=== PATIENT | female | born 1975 | race Caucasian/White ===

== ENCOUNTER → 2016-12-09 | Outpatient (CLI) | payer OTHER ==
[~2016-12-09] MED LIST: CALC500C3 PO; CLC100 PO; CLZ750 PO; LORA-741 PO; MISCCAP80 PO; NORT25CA PO; NRN/100 PO; ONDA4TAB10 SL; ONDA8TAB6 PO; OPTIRAY 320 IV PRN; OXYC-57 PO; OXYC7.5T65 PO; PANT40TA PO; PRED20TA PO; [UNRECOGNIZED DRUG - OTHER] PO
--- NOTE | 2016-12-09 13:44 | DIAGNOSTIC IMAGING REPORT ---
CT SCAN OF THE CHEST WITH IV CONTRAST CLINICAL HISTORY: Breast cancer. COMPARISON STUDY: Chest CT dated 08/26/2016. TECHNIQUE: Following the IV administration 93 cc of Optiray 320, CT scan of the chest, abdomen, and pelvis was performed from the thoracic inlet to the proximal femora. Images are reviewed in the axial, sagittal, and coronal planes. IV contrast was administered without complication. Automated dose control exposure was utilized. CT DOSE: 246.91 mGycm FINDINGS: Thyroid: Imaged portions of the thyroid gland are normal in size and attenuation. Thoracic aorta: The thoracic aorta is normal in course and caliber. The aortic arch demonstrates standard 3-vessel anatomy. No dissection is seen. A right internal jugular central venous infusion port is in place. Heart: The heart is normal in size and configuration, and without pericardial effusion. The pulmonary trunk is normal in caliber. Lungs and pleural spaces: No airspace consolidation or pleural effusion is identified. There is minimal dependent atelectasis. Scattered calcified granulomas are identified. A 3 mm left lower lobe pulmonary nodule seen on image #192. A 2 mm left upper lobe nodule seen image #124. Mediastinum: The trachea and central airways are clear. Scattered subcentimeter mediastinal lymph nodes are identified. These are not pathologically enlarged by size criteria. The mildly enlarged left prevascular lymph node seen on 08/26/2016 now measures up to 7 mm short axis. Internal mammary region: There is an enlarging left internal mammary lymph node seen on image #102. This measures 1.2 x 0.9 cm. A left internal mammary lesion on image #121 measures 1.9 x 0.9 cm. Mary Grace: Clear. Axillae: There is no axillary lymphadenopathy. Upper abdomen: Partially visualized upper abdominal viscera is within normal limits. Bony thorax: No lytic or blastic lesions are identified. Soft tissues: The left breast is surgically absent. IMPRESSION: 1. There are enlarging left internal mammary lymph nodes as compared to the 08/26/2016 examination. Based on the location this is concerning for metastatic breast cancer. 2. No airspace consolidation or pleural effusion is identified. 3. At least 2 small pulmonary nodules measuring up to 3 mm are unchanged from 08/26/2016. These are pathologically indeterminant but of low suspicion. No new pulmonary nodules are identified. 4. Status post left mastectomy. 5. Additional changes as above. Electronically signed by: Lamonte Pena M.D. 12/09/2016 1:42 PM Dictated Date/Time: 12/09/2016 1:31 PM
== END | disposition home or self-care (01) ==
LOC: C.CTS 12:44
PROVIDERS: ATTEND Internal Medicine Hematology & Oncology
DX: C50.912 Malignant neoplasm of unspecified site of left female breast (principal)

== ENCOUNTER → 2016-12-23 | Outpatient (CLI) | payer OTHER ==
[~2016-12-23] MED LIST changes: -OPTIRAY 320 IV PRN
--- NOTE | 2016-12-24 10:33 | DIAGNOSTIC IMAGING REPORT ---
PET/CT CLINICAL HISTORY: Breast cancer. TECHNIQUE: A PET/CT was performed from the skull base through the upper thighs following intravenous injection of 11.44 mCi of F 18 FDG IV. The injection was performed at 10:53 AM on December 23, 2016 and imaging began at 11:51 AM on December 23, 2016. Unenhanced CT was performed for attenuation correction purposes and anatomic localization. CT DOSE: 321.18 mGycm COMPARISON STUDY: Chest CT December 09, [address] of the chest, abdomen and pelvis August 26, 2016. FINDINGS: Head and neck: No suspicious FDG uptake is identified within the neck. There is no cervical lymphadenopathy. Chest: There is mild FDG uptake within a minimally enlarged left upper internal mammary chain lymph node shown on image 73. This node measures 1.2 x 1.1 cm and has an SUV max of 1.8. There is also mild FDG uptake within a mildly enlarged left internal mammary lymph node shown on image 79 with an SUV max of 2. These correspond to the 2 lymph nodes shown on prior chest CT. A right internal jugular [id number] is in place. The patient is status post left mastectomy. No additional suspicious areas of FDG uptake are identified within the chest. Abdomen and Pelvis: No suspicious FDG uptake is identified within the abdomen or the pelvis. There is no lymphadenopathy. Bowel wall thickening shown on prior CT of August 26, 2016 has resolved. There are several suspected right ovarian cyst. Musculoskeletal: No suspicious skeletal uptake is identified. IMPRESSION: Mild FDG uptake within two minimally enlarged left internal mammary lymph nodes which were shown on CT of December 09, 2016. These are suggestive of arthur metastases. Electronically signed by: Samy Lowe M.D. 12/24/2016 10:31 AM Dictated Date/Time: 12/23/2016 1:04 PM
== END | disposition home or self-care (01) ==
LOC: C.PET 10:14
PROVIDERS: ATTEND Internal Medicine Hematology & Oncology
DX: C50.912 Malignant neoplasm of unspecified site of left female breast (principal)

== ENCOUNTER → 2017-01-02 | Day surgery (SDC) | payer OTHER ==
[~2017-01-02] VITALS: Ht 172.7 cm; Wt 72.0 kg
[2017-01-02 11:04] VITALS: PULSE 73; TEMP 36.5; Ht 172.7 cm; Wt 72.0 kg
[2017-01-02 12:50] VITALS: BP 121/80; PULSE 75; TEMP 36.6; O2SAT 100
--- NOTE | 2017-01-02 13:04 | Discharge Instructions ---
Discharge Instructions Procedure Procedure Date: Jan 02, 2017. Reason for visit: Left Chest Lymph Node. Discharge Discharge Date: Jan 02, 2017. Discharge Diagnosis: Enlarged internal mammary chain lymph node Instructions Activity Recommendations: 1 Day-May resume regular activity Return to School/Work: no limitations Recommended Home Diet: Resume Previous Diet Allergies Coded Allergies: Latex (Verified Allergy, Intermediate, ERRYTHEMA, 08/26/16) Phenazopyridine (Verified Allergy, Intermediate, vomitting, 01/04/16) Uncoded Allergies: PENICILLIN (Allergy, Intermediate, skin irritation, swelling, vomitting, 01/04/16) SULFA (Allergy, Intermediate, skin irritation, swelling, vomitting, 01/04/16) ADHESIVE (Allergy, Mild, ERRYTHEMA, 08/26/16) Jalyn Spaulding Recommendations: Call your doctor if: * Temperature above 101 degrees * Pain not relieved by pain medicine ordered * There is increased drainage or redness from any incision * You have any unanswered questions or concerns. Your Doctors Instructions noted above were prepared by provider Bassam Montoya. Patient Signature Section: Patient Instructions Signature Page Arely Low Patient (or Guardian) Signature/Date: I have read and understand the instructions given to me by my caregivers. Caregiver/RN/Doctor Signature/Date: The above-named patient and/or guardian has received patient instructions on this date. + Original Patient Signature Page (only) stays with chart. Please make copy for patient.
[2017-01-02 13:05] VITALS: BP 106/81; PULSE 65; O2SAT 100
--- NOTE | 2017-01-02 13:09 | DIAGNOSTIC IMAGING REPORT ---
CT GUIDED FINE-NEEDLE ASPIRATION BIOPSY OF A LEFT INTERNAL MAMMARY CHAIN LYMPH NODE CT DOSE: 637.14 mGycm CLINICAL HISTORY: PET positive left internal mammary artery chain lymph node TECHNIQUE: A timeout was performed. The risks of the procedure were explained the patient informed consent was obtained. The abnormality in question was localized using a grid and CT imaging. The skin was anesthetized with 1% lidocaine. 3 passes into the node in question were performed. The needle was documented to be within the node on 3 passes. Initial pathologic review revealed no lesional tissue. Cell block evaluation is pending at this time. COMPARISON STUDY: PET/CT scan dated 12/23/2016 FINDINGS: Final pathology is pending at this time. There were no immediate complications IMPRESSION: 3 samples of the patient's left internal mammary PET positive lymph node were performed under CT guidance utilizing a 25-gauge needle. Initial pathologic review revealed no lesional tissue. Cell block review is pending at this time. Electronically signed by: Bassam Montoya M.D. 01/02/2017 1:08 PM Dictated Date/Time: 01/02/2017 1:04 PM
[2017-01-02 13:32] VITALS: BP 115/70; PULSE 71; O2SAT 100
== END | disposition home or self-care (01) ==
LOC: C.ACU 10:10
PROVIDERS: ATTEND Internal Medicine Hematology & Oncology
DX: R59.9 Enlarged lymph nodes, unspecified (principal); Z88.0 Allergy status to penicillin; Z88.2 Allergy status to sulfonamides

== ENCOUNTER 2017-02-05 05:52 | Inpatient (IN) | payer OTHER ==
[2017-01-13 15:23] VITALS: BMI 24.0
[2017-02-05] VITALS (11 sets, daily range): BP systolic 113–140; BP diastolic 58–91; PULSE 63–87; TEMP 36.5–37.2; O2SAT 92–100; Ht 172.7 cm; Wt 66.3 kg
[~2017-02-05] VITALS: Ht 172.7 cm; Wt 66.3 kg
[~2017-02-05 05:52] MED LIST changes: -CALC500C3 PO; -CLC100 PO; -LORA-741 PO; -NRN/100 PO; -ONDA4TAB10 SL; -OXYC-57 PO; -OXYC7.5T65 PO
[2017-02-05] MEDS ORDERED: LACTATED RINGER'S 1000ML 1,000 ML IV SCH (06:00)
[2017-02-05] MEDS ORDERED: DEXAMETHASONE SOD INJ 4 MG/ML VIAL ONE (06:25)
[2017-02-05] MEDS ORDERED: LIDOCAINE HCL 2% 2 ML VIAL (20MG/ML) ONE ×2 (06:25→07:35)
[2017-02-05] MEDS ORDERED: MIDAZOLAM HCL 1 MG/ML 2ML VIAL ONE ×2 (06:25→07:09)
[2017-02-05] MEDS ORDERED: NEOSTIGMINE METHYLSULFATE 5 MG/5 ML SYR ONE (06:25)
[2017-02-05] MEDS ORDERED: GLYCOPYRROLATE INJ 0.2 MG/ML VIAL ONE (06:25)
[2017-02-05] MEDS ORDERED: ROCURONIUM BROMIDE 10 MG/ML 5 ML VIAL ONE ×3 (06:25→09:39)
[2017-02-05] MEDS ORDERED: ONDANSETRON INJ 2 MG/ML 2 ML VIAL ONE (06:25)
[2017-02-05] MEDS ORDERED: FENTANYL CITRATE INJ 50 MCG/1 ML 2 ML VIAL ONE ×2 (06:26→09:42)
[2017-02-05] MEDS ORDERED: PROPOFOL IV EMULSION 10 MG/ML 20 ML VIAL IV ONE (06:26)
--- NOTE | 2017-02-05 06:38 | History & Physical Bridge Note ---
H&P Re-Evaluation Bridge Note: I have examined the patient, reviewed the History & Physical and in the interval since the performance of the History & Physical I have noted the following changes of clinical significance: No changes noted
[2017-02-05 06:45] LABS: BUN/CREATININE RATIO 20.4 (10-20); CALCIUM 8.5 mg/dl (8.5-10.1); CREATININE 0.92 mg/dl (0.60-1.20); POTASSIUM 3.9 mmol/L (3.5-5.1)
[2017-02-05] MEDS ORDERED: BUPIVACAINE LIPOSOME 1/3% 266 MG/20 ML VIAL INFIL ONE (07:11)
[2017-02-05] MEDS ORDERED: SODIUM CHLORIDE 0.9% PF 50 ML VIAL ONE (07:12)
[2017-02-05] MEDS ORDERED: ATROPINE SULFATE 0.1 MG/ML 5ML SYR IV PRN (08:15)
[2017-02-05] MEDS ORDERED: EpHEDrine SULFATE INJ 50 MG/ML AMP IV PRN (08:15)
[2017-02-05] MEDS ORDERED: PROMETHAZINE HCL INJ 6.25 MG in SODIUM CHLORIDE 0.9% 50ML 50 ML IV PRN (08:15)
[2017-02-05] MEDS ORDERED: ONDANSETRON INJ 2 MG/ML 2 ML VIAL IV PRN (08:15)
[2017-02-05] MEDS: BUPIVACAINE LIPOSOME 1/3% 266 MG/20 ML VIAL INFIL ONE (09:14)
[2017-02-05] MEDS ORDERED: HYDROCORTISONE SOD SUCCINATE 100 MG/2 ML VIAL ONE (09:24)
[2017-02-05] MEDS ORDERED: ESMOLOL HCL 10 MG/ML 10 ML VIAL ONE (10:06)
[2017-02-05] MEDS: FENTANYL CITRATE INJ 50 MCG/1 ML 2 ML VIAL IV PRN ×4 (10:15→10:40)
[2017-02-05] MEDS: HYDROmorphone INJ 1 MG/ML SYR IV PRN ×4 (10:35→10:50)
--- NOTE | 2017-02-05 10:51 | OPERATIVE REPORT ---
DATE OF OPERATION: 02/05/2017 PREOPERATIVE DIAGNOSIS: 1. Hypermetabolic lymph nodes, left internal mammary artery chain. 2. History of breast cancer. POSTOPERATIVE DIAGNOSIS: Metastatic breast cancer to internal mammary artery chain. PROCEDURE: Lymph node resection, left internal mammary artery chain with the da Humera robot via left thoracoscopy. SURGEON: Dr. Easton. [employer]: Ramsey Vance PA-C. ANESTHESIA: General anesthesia endotracheal intubation with double lumen tube. SPECIFICS OF PROCEDURE: Arely Low is an unfortunate 41-year-old female with a history of breast cancer and actually has 2 young children at home. She underwent a PET scan which showed 2 lymph nodes in her left internal mammary artery chain. I was asked to evaluate her and felt that a robotic resection of this would be fairly simple approach. A percutaneous biopsy was not fruitful. On 02/05/2017 the patient was brought to the operating room and underwent uncomplicated insertion of 3 separate 8.5 robotic ports. We were then able to biopsy this with no blood loss. She tolerated it well. The only problem was that it was difficult to do a full bloc with the Exparel and I only performed a block at about 6 interspaces due to the port placements being posterior. She had no air leak at the conclusion of the case and tolerated it well. PROCEDURE: The patient was brought to the operating room and placed in supine position. General anesthesia induced and endotracheal intubation was performed, a double lumen tube. The patient was turned in a semiupright left chest position with her arm more posterior. We did this carefully to prevent any stress on her shoulder or any unusual pressure. We then placed an 8.5 mm port in about the sixth interspace lateral to the mid axillary line. The da Humera camera was then placed. We were able to then visually inspect and went in about the 3rd interspace laterally and then at about the 6th interspace a bit more medially. With this, we were able to easily see the chain. We started superiorly and I scored the endothoracic fascia and came down upon the artery vein without difficulty. It should be noted that we were a few centimeters before the phrenic nerve crossing the subclavian artery. I came upon a node and removed it in its entirety. This was brought out through the port, so I was not concerned about port site metastases. This was sent to the lab for frozen. While waiting for this I then took down 3 more interspaces and removed a large amount of what appeared to be fatty tissue and some lymph node tissue. This was sent for permanent. We really got into no bleeding. Frozen section came back as the superior node being positive for metastatic carcinoma. We stopped here. I then used 266 mg of Exparel reconstituted in 60 mL of normal saline and then attempted to perform intercostal blocks. Given the position of our ports it was very difficult to do this under direct visualization. I blocked about 4 of the superior interspaces by injecting 5 mL of Exparel solution into each interspace. Then I went and did it lower also. A 24-Faroese chest tube was then directed towards the apex and was sutured in place. A single 0 Vicryl suture was used to close the deeper tissues of each of the ports and then 4-0 Monocryl was used to close these incisions in a running continuous fashion. She tolerated it quite well and was extubated in the room. She did have some pain with this postoperatively upon awakening. I attest to the content of the Intraoperative Record and any orders documented therein. Any exceptio ns are noted below.
[2017-02-05] MEDS ORDERED: NALOXONE HCL 0.4 MG/1 ML VIAL/CARP IV PRN (11:30)
[2017-02-05] MEDS: SODIUM CHLORIDE 0.9% 1000ML 1,000 ML IV SCH (11:30)
--- NOTE | 2017-02-05 11:40 | Anesthesiology Progress Note ---
Anesthesia Post Op Note Date & Time Feb 05, 2017 at 11:39 Vital Signs Pain Intensity: 3 Vital Signs Past 12 Hours Date Time Temp Pulse Resp B/P Pulse Ox O2 Delivery O2 Flow Rate FiO2 02/05/17 11:05 36.2 85 20 133/76 98 Nasal Cannula 4 02/05/17 10:50 88 20 139/80 98 Nasal Cannula 4 02/05/17 10:40 74 18 135/77 98 Nasal Cannula 4 02/05/17 10:30 88 18 139/65 97 Nasal Cannula 4 02/05/17 10:20 99 18 119/88 98 Nasal Cannula 4 02/05/17 10:10 36.5 110 20 144/91 98 Mask 4 02/05/17 06:14 36.9 87 18 126/80 98 Room Air Notes Mental Status: alert / awake / arousable, participated in evaluation Pt Amnestic to Procedure: Yes Nausea / Vomiting: adequately controlled Pain: adequately controlled Airway Patency, RR, SpO2: stable & adequate BP & HR: stable & adequate Hydration State: stable & adequate Anesthetic Complications: no major complications apparent Patient pain challenging to control in pacu, although it is improved with sufficient narcotics. Apparently, intercostal blocks were technically challenging on the surgical field and may be insufficient. I recommended a Dilaudid AIRPORT REPRESENTATIVE on the floor and the surgical team has ordered this.
[2017-02-05] MEDS: MoRPHine SULFATE 2 MG/ML CARP IV PRN ×2 (12:19→16:38)
--- NOTE | 2017-02-05 12:28 | DIAGNOSTIC IMAGING REPORT ---
CHEST ONE VIEW PORTABLE CLINICAL HISTORY: s/p left VATS COMPARISON STUDY: Chest CT dated 12/09/2016 FINDINGS: Postsurgical changes are present on the left. There is a left-sided chest tube. No pneumothorax is visualized. There is a right-sided central venous catheter. There is mild prominence of the central pulmonary vessels raising the possibility of mild fluid overload. There is subcutaneous is emphysema on the left.[ Prominent left basal markings are likely atelectatic. IMPRESSION: Postsurgical change. Mild vascular prominence. No evidence of pneumothorax Electronically signed by: Bassam Montoya M.D. 02/05/2017 12:26 PM Dictated Date/Time: 02/05/2017 12:23 PM
[2017-02-05] MEDS ORDERED: NURSING VERBAL MED ORDER ONE (12:30)
[2017-02-05] MEDS: HYDROmorphone HCL 0.5MG/ML 50 ML CASSETTE IV PRN ×4 (12:40→23:08)
[2017-02-05] MEDS: D5W AND 1/2NSS 1,000 ML IV SCH ×2 (12:40→21:48)
[2017-02-05] MEDS ORDERED: PROMETHAZINE HCL INJ 12.5 MG in SODIUM CHLORIDE 0.9% 50ML 50 ML IV ONE (12:45)
[2017-02-05] MEDS: CLINDAMYCIN IV 900 MG in DEXTROSE 5% ADD-VANTAGE 100ML 100 ML IV SCH ×2 (13:41→19:35)
[2017-02-05] MEDS: ACETAMINOPHEN IV 1,000 MG in EMPTY BAG 0 ML IV SCH ×2 (13:41→21:55)
[2017-02-05] MEDS: METOCLOPRAMIDE HCL INJ 5 MG/ML 2 ML VIAL IV. SCH ×2 (13:42→21:51)
[2017-02-05] MEDS: KETOROLAC TROMETHAMINE 15 MG/ML VIAL IV. SCH ×2 (14:29→21:48)
[2017-02-05] MEDS: OXYCODONE HCL IR 5 MG TAB (IMMEDIATE RELEASE) PO PRN (18:07)
[2017-02-05] MEDS: BALSALAZIDE 750 MG CAP PO SCH (18:08)
[2017-02-05] MEDS: ONDANSETRON INJ 2 MG/ML 2 ML VIAL IV PRN (18:08)
[2017-02-05] MEDS: GLYCOPYRROLATE 1 MG TAB PO SCH (18:09)
[2017-02-05] MEDS ORDERED: NURSING VERBAL MED ORDER PRN (18:45)
[2017-02-05] MEDS ORDERED: NURSING VERBAL MED ORDER STA (18:52)
[2017-02-05] MEDS ORDERED: ONDANSETRON INJ 2 MG/ML 2 ML VIAL IV ONE (19:15)
[2017-02-05] MEDS: LORAZEPAM 0.5 MG TAB PO PRN (19:29)
[2017-02-05] MEDS ORDERED: GLYCOPYRROLATE 1 MG TAB PO SCH (21:00)
[2017-02-05] MEDS: DOCUSATE SODIUM 100 MG CAP PO SCH (21:46)
[2017-02-05] MEDS: NORTRIPTYLINE HCL 25 MG CAP PO SCH (21:47)
[2017-02-06] MEDS: LORAZEPAM 0.5 MG TAB PO PRN ×5 (00:11→21:44)
[2017-02-06 04:15] VITALS: BP 124/83; PULSE 75; TEMP 37; O2SAT 94
[2017-02-06] MEDS: KETOROLAC TROMETHAMINE 15 MG/ML VIAL IV. SCH ×3 (06:05→21:44)
[2017-02-06] MEDS: ACETAMINOPHEN IV 1,000 MG in EMPTY BAG 0 ML IV SCH (06:06)
[2017-02-06] MEDS: METOCLOPRAMIDE HCL INJ 5 MG/ML 2 ML VIAL IV. SCH (06:06)
[2017-02-06] MEDS: HYDROmorphone HCL 0.5MG/ML 50 ML CASSETTE IV PRN (07:14)
[2017-02-06 07:30] VITALS: BP 120/72; PULSE 72; TEMP 36.9; O2SAT 94
[2017-02-06] MEDS: D5W AND 1/2NSS 1,000 ML IV SCH (07:44)
[2017-02-06] MEDS: GLYCOPYRROLATE 1 MG TAB PO SCH ×2 (07:47→18:26)
[2017-02-06] MEDS ORDERED: CLC100 PO (08:45)
[2017-02-06] MEDS ORDERED: NRN/100 PO (08:45)
--- NOTE | 2017-02-06 08:54 | Discharge Instructions ---
Discharge Instructions Date of Service Feb 06, 2017. Admission Reason for Admission: Breast Cancer, Internal Mammary Metastasis Discharge Discharge Diagnosis / Problem: Breast Cancer, Internal Mammary Metastasis Discharge Goals Goal(s): Learn about illness Activity Recommendations Activity Limitations: as noted below Lifting Limitations: none 1. Do not drive if taking percocet. 2. You may remove dressing in 3 days and shower thereafter. No tub baths or swimming pools. Cover incisions with dry gauze if any drainage occurs. 3. Do not fly until cleared to do so by Dr. Easton. . Instructions / Follow-Up Instructions / Follow-Up 1. Appointment with Dr. Easton in 1 week. Office will call you with date and time of appointment. You will need a chest x-ray prior to appointment. Current Hospital Diet Patient's current hospital diet: Regular Diet Discharge Diet Recommended Diet: Regular Diet Procedures Procedures Performed: Robotic Laparoscopic Left Internal Mammary Lymphadenectomy [place] Pending Studies Studies pending at discharge: no Medical Emergencies . Who to Call and When: Medical Emergencies: If at any time you feel your situation is an emergency, please call 911 immediately. . Non-Emergent Contact Non-Emergency issues call your: Surgeon Call Non-Emergent contact if: you have a fever, your pain is not controlled, wound has increased drainage . "Provider Documentation" section prepared by Aldo Vance. VTE Core Measure Inpt VTE Proph given/why not?: Enoxaparin (Lovenox)SQ
[2017-02-06] MEDS ORDERED: OXYC7.5T65 PO (08:55)
--- NOTE | 2017-02-06 08:56 | DIAGNOSTIC IMAGING REPORT ---
CHEST ONE VIEW PORTABLE CLINICAL HISTORY: chest tube removal postoperative evaluation COMPARISON STUDY: 02/05/2017 FINDINGS: Interval removal of the patient's left-sided chest tube mild residual left basilar atelectasis. No evidence pneumothorax. Cutaneous emphysematous change improved. Right lung remains clear. IMPRESSION: No evidence pneumothorax status post left-sided chest tube removal Electronically signed by: Henry Wright M.D. 02/06/2017 8:55 AM Dictated Date/Time: 02/06/2017 8:54 AM
[2017-02-06] MEDS ORDERED: ENOXAPARIN 40 MG/0.4 ML SYR SQ SCH (09:00)
[2017-02-06] MEDS ORDERED: PANTOprazole SOD 40 MG TAB PO SCH (09:00)
[2017-02-06] MEDS ORDERED: LACTOBACILLUS ACIDOPHILUS (FLORANEX) TAB PO SCH (09:00)
[2017-02-06] MEDS: BALSALAZIDE 750 MG CAP PO SCH ×2 (09:12→18:25)
[2017-02-06] MEDS: DOCUSATE SODIUM 100 MG CAP PO SCH ×2 (09:13→20:47)
--- NOTE | 2017-02-06 09:15 | DISCHARGE SUMMARY ---
DATE OF DISCHARGE: 02/06/2017. DISCHARGE DIAGNOSES: 1. Metastatic breast carcinoma to left internal mammary lymph nodes. 2. History of left mastectomy for breast cancer. HOSPITAL COURSE: This is an unfortunate 41-year-old with 2 young children who was found to have hypermetabolic nodes in her left internal mammary chain and I was asked to see her and after needle biopsy failed to diagnose this. Lymph nodes were slightly enlarged but more importantly, they were markedly hypermetabolic which is the only site of hypermetabolic activity on the PET scan. I elected to proceed with a biopsy of these. On 02/05/2017 the patient was brought to the operating room electively and we did a robotic procedure with 3 ports and biopsied these lymph nodes. Unfortunately, frozen section showed her to have metastatic carcinoma consistent with a breast primary. We of course are waiting for permanent results. The patient had essentially no blood loss. She had no air leak. Her chest x-ray looked good. She did have significant pain; however, she was much better this morning. I pulled her chest tube out and that helped her pain also. Her incisions were all clean. She was discharged home on postop day 1. I will see her back in the office next week and we will go over the final pathology results. MARIA ELENA
[2017-02-06] MEDS: ONDANSETRON INJ 2 MG/ML 2 ML VIAL IV PRN (09:54)
--- NOTE | 2017-02-06 10:13 | Anesthesiology Progress Note ---
Anesthesia Post Op Note Date & Time Feb 06, 2017 at 10:13 Vital Signs Pain Intensity: 9.0 Vital Signs Past 12 Hours Date Time Temp Pulse Resp B/P Pulse Ox O2 Delivery O2 Flow Rate FiO2 02/06/17 07:30 36.9 72 16 120/72 94 Room Air 02/06/17 04:15 37.0 75 18 124/83 94 Room Air 02/06/17 00:15 Room Air 02/05/17 23:55 37.2 66 18 126/58 93 Room Air Notes Mental Status: alert / awake / arousable, participated in evaluation Pt Amnestic to Procedure: Yes Nausea / Vomiting: adequately controlled Pain: adequately controlled Airway Patency, RR, SpO2: stable & adequate BP & HR: stable & adequate Hydration State: stable & adequate Anesthetic Complications: no major complications apparent
[2017-02-06 11:00] VITALS: BP 121/76; PULSE 95; TEMP 36.9; O2SAT 98
[2017-02-06] MEDS: SODIUM CHLORIDE 0.9% 1000ML 1,000 ML IV SCH (11:00)
[2017-02-06] MEDS: ACETAMINOPHEN 325 MG TAB PO SCH ×2 (12:35→18:27)
[2017-02-06] MEDS: OXYCODONE HCL IR 5 MG TAB (IMMEDIATE RELEASE) PO PRN ×2 (14:27→21:44)
[2017-02-06 14:33] VITALS: BP 121/76; PULSE 95; TEMP 36.9; O2SAT 98
[2017-02-06 15:12] VITALS: BP 146/91; PULSE 80; TEMP 37.2; O2SAT 97
[2017-02-06] MEDS ORDERED: LORA-741 PO (16:29)
[2017-02-06] MEDS: NORTRIPTYLINE HCL 25 MG CAP PO SCH (20:47)
== END 2017-02-06 22:30 | disposition home or self-care (01) | DRG 824 ==
LOC: ENRESERVDT → ENRESERVTM → C.ACU 05:52 → C.MSN 10:04
PROVIDERS: ADMIT Surgery; ATTEND Surgery
PROC: 8E0W4CZ Robotic Assisted Procedure of Trunk Region, Percutaneous Endoscopic Approach (ICD-10-PCS; principal; 2017-02-05 07:30)
PROC: 07B Lymphatic and Hemic Systems, Excision (ICD-10-PCS; principal; 2017-02-05 07:30)
DX: C77.1 Secondary and unspecified malignant neoplasm of intrathoracic lymph nodes (principal); K50.90 Crohn's disease, unspecified, without complications; G89.18 Other acute postprocedural pain; K25.9 Gastric ulcer, unspecified as acute or chronic, without hemorrhage or perforation; M19.90 Unspecified osteoarthritis, unspecified site; Z85.3 Personal history of malignant neoplasm of breast; Z90.12 Acquired absence of left breast and nipple; Z80.9 Family history of malignant neoplasm, unspecified; Z87.891 Personal history of nicotine dependence; Z79.52 Long term (current) use of systemic steroids; Z79.899 Other long term (current) drug therapy

== ENCOUNTER → 2017-02-13 | Outpatient (CLI) | payer OTHER ==
[~2017-02-13] MED LIST changes: +CLC100 PO; +LORA-741 PO; +NRN/100 PO; +OXYC7.5T65 PO
--- NOTE | 2017-02-13 11:30 | DIAGNOSTIC IMAGING REPORT ---
TWO VIEW CHEST CLINICAL HISTORY: Pulmonary nodule. FINDINGS: PA and lateral chest radiographs are compared to study dated 02/06/2017. Correlation is made with chest CT dated 12/09/2016. A right internal jugular central venous infusion port is unchanged in position. The cardiomediastinal silhouette is unremarkable. The lungs and pleural spaces are clear. There is no pneumothorax. The bony thorax appears intact. There is mild thoracic scoliosis. A tiny metallic foreign body is again noted in the left upper chest wall. IMPRESSION: The lungs are clear. The tiny pulmonary nodules seen by chest CT are not apparent by x-ray. Electronically signed by: Lamonte Pena M.D. 02/13/2017 11:28 AM Dictated Date/Time: 02/13/2017 11:27 AM
== END | disposition home or self-care (01) ==
LOC: C.RAD 10:56
PROVIDERS: ATTEND Surgery
DX: R91.1 Solitary pulmonary nodule (principal)

== ENCOUNTER → 2017-02-28 | Outpatient (CLI) | payer OTHER ==
[~2017-02-28] MED LIST changes: -LORA-741 PO; -OXYC7.5T65 PO
--- NOTE | 2017-02-28 15:31 | ECHOCARDIOGRAM REPORT ---
*NOTICE TO RECEIVING CONSTITUTION PARTY AGENCY This information is strictly Confidential and protected under [place] law. [place] law prohibits you from making any further disclosure of this information unless further disclosure is expressly permitted by the written consent of the person to whom it pertains or is authorized by law. A general authorization for the release of medical or other information is not sufficient for this purpose. Hospital accepts no responsibility if the information is made available to any other person, INCLUDING THE PATIENT. Interpretation Summary * Name: MARY KATE OSHEA Study Date: 02/28/2017 02:08 PM BP: 133/73 mmHg * Patient Location: [facility], [place], [facility] HR: 74 * : 1975 (M/d/yyyy) Gender: Female Height: 68 in * Age: 41 yrs Ethnicity: [place] Weight: 140 lb * Ordering Physician: Chavez Hernandez * Referring Physician: Yessenia Johnson . 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 * Normal diastolic function * Right ventricular systolic pressure is normal. Procedure Details * A complete two-dimensional transthoracic echocardiogram was performed (2D, M-mode, Doppler and color flow Doppler). Left Ventricle * The left ventricle is normal in size. * There is normal left ventricular wall thickness. * Ejection Fraction = 55-60%. * Left ventricular systolic function is normal. * Normal diastolic function Right Ventricle * The right ventricle is normal in size and function. Atria * The left atrial size is normal. * Right atrial size is normal. Mitral Valve * The mitral valve anatomy is normal. * There is trace mitral regurgitation. Tricuspid Valve * The tricuspid valve is not well visualized, but is grossly normal. * There is trace tricuspid regurgitation. * Right ventricular systolic pressure is normal. Aortic Valve * The aortic valve is trileaflet. * The aortic valve is normal in structure and function. * No hemodynamically significant valvular aortic stenosis. * There is no significant aortic regurgitation. Great Vessels * The aortic root and proximal ascending aorta are normal sized. Pericardium/Pleural * There is no pericardial effusion. Great Vessels * Normal inferior vena cava size and collapsability with sniff indicates a normal right atrial pressure of 3 mmHg MMode 2D Measurements and Calculations IVSd 0.78 cm LVIDd 4.3 cm LVIDs 2.9 cm LVPWd 0.74 cm IVS/LVPW 1.1 FS 32.5 % EDV(Teich) 81.8 ml ESV(Teich) 31.8 ml EF(Teich) 61.2 % EDV(cubed) 77.9 ml ESV(cubed) 24.0 ml EF(cubed) 69.2 % LV mass(C)d 96.7 grams LV mass(C)dI 55.1 grams/m\S\2 SV(Teich) 50.0 ml SI(Teich) 28.5 ml/m\S\2 SV(cubed) 54.0 ml SI(cubed) 30.7 ml/m\S\2 Ao root diam 2.9 cm Ao root area 6.6 cm\S\2 ACS 1.9 cm LA dimension 3.0 cm asc Aorta Diam 2.2 cm LA/Ao 1.0 LVOT diam 1.8 cm LVOT area 2.6 cm\S\2 LVAd ap4 23.6 cm\S\2 LVLd ap4 7.3 cm EDV(MOD-sp4) 61.5 ml EDV(sp4-el) 64.6 ml LVAs ap4 13.4 cm\S\2 LVLs ap4 5.9 cm ESV(MOD-sp4) 26.6 ml ESV(sp4-el) 26.0 ml EF(MOD-sp4) 56.7 % EF(sp4-el) 59.8 % LVAd ap2 17.3 cm\S\2 LVLd ap2 6.6 cm EDV(MOD-sp2) 38.2 ml EDV(sp2-el) 38.7 ml LVAs ap2 10.2 cm\S\2 LVLs ap2 5.5 cm ESV(MOD-sp2) 16.1 ml ESV(sp2-el) 16.3 ml EF(MOD-sp2) 57.8 % EF(sp2-el) 58.0 % LVLd %diff -11.11 % EDV(MOD-bp) 50.8 ml LVLs %diff -7.35 % ESV(MOD-bp) 21.4 ml EF(MOD-bp) 57.8 % SV(MOD-sp4) 34.9 ml SI(MOD-sp4) 19.9 ml/m\S\2 SV(MOD-sp2) 22.1 ml SI(MOD-sp2) 12.6 ml/m\S\2 SV(MOD-bp) 29.4 ml SI(MOD-bp) 16.7 ml/m\S\2 SV(sp4-el) 38.6 ml SI(sp4-el) 22.0 ml/m\S\2 SV(sp2-el) 22.5 ml SI(sp2-el) 12.8 ml/m\S\2 Doppler Measurements and Calculations MV E max carey 68.9 cm/sec MV A max carey 65.5 cm/sec MV E/A 1.1 MV dec time 0.46 sec Ao V2 max 141.6 cm/sec Ao max PG 8.0 mmHg Ao max PG (full) 1.1 mmHg STACIE(V,A) 2.4 cm\S\2 STACIE(V,D) 2.4 cm\S\2 LV V1 max PG 6.9 mmHg LV V1 max 131.4 cm/sec PA V2 max 119.4 cm/sec PA max PG 5.7 mmHg PA acc slope 646.7 cm/sec\S\2 PA acc time 0.13 sec TR max carey 205.0 cm/sec PA pr(Accel) 22.0 mmHg
== END | disposition home or self-care (01) ==
LOC: C.CPL 13:27
PROVIDERS: ATTEND Nurse Practitioner Family
DX: C50.912 Malignant neoplasm of unspecified site of left female breast (principal)

== ENCOUNTER → 2017-07-23 | Outpatient (CLI) | payer OTHER ==
--- NOTE | 2017-07-23 14:19 | DIAGNOSTIC IMAGING REPORT ---
PET/CT Clinical history: 42-year-old female with left breast cancer status post left mastectomy, metastatic disease in the left internal mammary lymph nodes, former smoker. TECHNIQUE: PET/CT was performed from the base of the skull through the pelvis following the intravenous administration of 13.15 mCi of F18-FDG. Non-contrast CT imaging was performed over the same range without breath-hold for attenuation correction of PET images and anatomic correlation, but not for primary interpretation as it is not of standard diagnostic quality. CT DOSE: 1156.30mGy.cm. COMPARISON: 12/23/2016. FINDINGS: HEAD AND NECK: Pathologically enlarged, FDG avid lymph nodes in the right supraclavicular fossa (max SUV 8.5 and 9.3) disease. Additional FDG avid left supraclavicular lymph node, which is subcentimeter in the short axis (max SUV 5.2). CHEST: Postsurgical changes of left mastectomy. The right internal jugular Mediport remains in place terminating in the right atrium. Interval increase in size and FDG avidity of the left internal mammary lymph node (max SUV 8.1, previously max SUV 2). Margins of this node are difficult to evaluate in the absence of intravenous contrast and may directly invade the overlying intercostal musculature. Interval development of multifocal FDG avid mediastinal lymphadenopathy in the right paratracheal, prevascular and pretracheal regions (max SUV up to 8.6 in the right paratracheal node). No pericardial or pleural effusion. Dependent groundglass opacities likely atelectasis. No FDG avid pulmonary nodule or infiltrate. Mosaic attenuation suggest small airways disease or may be related to the phase of respiration. ABDOMEN/PELVIS: Persistent significant wall thickening of the FDG avid distal ileum (max SUV 7.0). The lack of significant perienteric inflammatory change associated with the degree of wall thickening could suggest post radiation change. A focal photopenic 1.8 cm cystic-appearing region in the distal ileum immediately proximal to the terminal ileum. This was not present on the prior exam. Prominent ovaries bilaterally, incompletely evaluated without intravenous contrast. Additionally, posterior to the left adnexa there is FDG avid abnormal soft tissue (max SUV 7.2). Small amount of free fluid in the pelvis, which may be loculated. No FDG avid lymphadenopathy or evidence of metastatic disease in the abdomen or pelvis. MUSCULOSKELETAL: There is no FDG-avid or destructive bone lesion. IMPRESSION: 1. Follow-up PET/CT demonstrates interval enlargement of the left internal mammary lymph node with increased FDG avidity. Interval development of FDG avid bilateral supraclavicular lymphadenopathy and mediastinal lymphadenopathy. This is consistent with progression of disease. 2. Indeterminate FDG avid abnormal soft tissue posterior to the left adnexa. This raises concern for an ovarian neoplasm. Further evaluation with pelvic ultrasound versus MR to be considered. 3. FDG avid wall thickening of the distal ileum persists. Given the absence of associated perienteric inflammatory change, this appearance could represent post radiation change. 4. Indeterminate 1.8 cm photopenic cystic lesion, which appears to be intramural within the terminal ileum. This is indeterminate. Electronically signed by: Heber Geiger M.D. 07/23/2017 2:18 PM Dictated Date/Time: 07/23/2017 1:56 PM
== END | disposition home or self-care (01) ==
LOC: C.PET 11:25
PROVIDERS: ATTEND Internal Medicine Hematology & Oncology
DX: C50.912 Malignant neoplasm of unspecified site of left female breast (principal)

== ENCOUNTER → 2017-07-30 | Outpatient (CLI) | payer OTHER ==
[~2017-07-30] MED LIST changes: +OPTIRAY 320 IV PRN
--- NOTE | 2017-07-30 15:00 | DIAGNOSTIC IMAGING REPORT ---
HEAD COMBO HISTORY: 42 years-old Female HX OF BREAST CANCER . Metastatic survey. COMPARISON: PET CT 07/23/2017 TECHNIQUE: Multiple axial CT images of the head were obtained both with and without the use of 94 mL Optiray 320. A dose lowering technique was used consistent with the principals of RUBINA. FINDINGS: There is no acute intracranial hemorrhage, midline shift, abnormal extra-axial collections or hydrocephalus. No focal mass is seen on the noncontrast scan. No territorial ischemia. No abnormal intra-axial or extra-axial enhancement is identified to suggest metastatic disease. There is no calvarial fracture. Mastoid air cells and middle ear cavities as well as the paranasal sinuses are clear. Soft tissues are unremarkable and the orbits are symmetric. IMPRESSION: 1. No acute intracranial abnormality. 2. No abnormal enhancement identified to suggest metastatic disease. The above report was generated using voice recognition software. It may contain grammatical, syntax or spelling errors. Electronically signed by: Willie Paulson M.D. 07/30/2017 2:59 PM Dictated Date/Time: 07/30/2017 2:55 PM
== END | disposition home or self-care (01) ==
LOC: C.CTS 14:26
PROVIDERS: ATTEND Internal Medicine Hematology & Oncology
DX: C50.912 Malignant neoplasm of unspecified site of left female breast (principal)

== ENCOUNTER → 2017-08-11 | Outpatient (CLI) | payer OTHER ==
[~2017-08-11] MED LIST changes: -OPTIRAY 320 IV PRN
--- NOTE | 2017-08-11 11:58 | Discharge Instructions ---
Discharge Instructions Procedure Procedure Date: Aug 11, 2017. Reason for visit: Rt Superclavicular Lymph Node,* To Do. Discharge Discharge Date: Aug 11, 2017. Discharge Diagnosis: s/p right supraclavicular lymph node FNA Instructions Activity Recommendations: No limitations Return to School/Work: no limitations Recommended Home Diet: No Limitations Provider Instructions: ACTIVITY RECOMMENDATIONS: * Rest today. * Resume regular activity in one day. MEDICATIONS: * May take Tylenol or Ibuprofen as needed for pain. DIET: * Resume previous diet. SPECIAL CARE INSTRUCTIONS: Call your doctor if: * Temperature above 101 degrees F. * Pain not relieved by pain medicine ordered. * Increased drainage or redness from incision. * Notify your doctor with any questions or concerns. Call your doctor or go to the nearest Emergency Department if you experience: * Increased chest pain or shortness of breath. FOLLOW UP VISIT: Follow-up with Referring Physician as scheduled. Allergies Coded Allergies: Latex (Verified Allergy, Intermediate, ERRYTHEMA, 02/05/17) Phenazopyridine (Verified Allergy, Intermediate, vomitting, 02/05/17) Adhesives (Unverified Allergy, Unknown, SKIN IRRITATION RASH, 02/05/17) Penicillins (Unverified Allergy, Unknown, SKIN IRRITATION SWELLING VOMITING, 02/05/17) Sulfa Antibiotics (Unverified Allergy, Unknown, SKIN IRRITATION SWELLING VOMITING, 02/05/17) [place] Recommendations: Call your doctor if: * Temperature above 101 degrees * Pain not relieved by pain medicine ordered * There is increased drainage or redness from any incision * You have any unanswered questions or concerns. Your Doctors Instructions noted above were prepared by provider Samy Lowe. Patient Signature Section: Patient Instructions Signature Page Arely Low Patient (or Guardian) Signature/Date: I have read and understand the instructions given to me by my caregivers. Caregiver/RN/Doctor Signature/Date: The above-named patient and/or guardian has received patient instructions on this date. + Original Patient Signature Page (only) stays with chart. Please make copy for patient.
--- NOTE | 2017-08-11 14:58 | DIAGNOSTIC IMAGING REPORT ---
ULTRASOUND GUIDED FINE NEEDLE ASPIRATION OF RIGHT SUPRACLAVICULAR LYMPH NODE CLINICAL HISTORY: Right supraclavicular lymph node. Breast cancer. COMPARISON STUDY: PET/CT July 23, 2017. PROCEDURE: Sonography of the right supraclavicular region demonstrated multiple enlarged lymph nodes which correspond to the FDG avid nodes shown on PET/CT of July 23, 2017. A cash applications representative 2 cm node was targeted for fine needle aspiration. This node was chosen as it was located superior to the right internal jugular [id number]. The procedure, risks and benefits were discussed with the patient. The patient agreed to the procedure and informed written consent was obtained. The procedure was performed by Dr. Lowe following a timeout. Skin of the right supraclavicular region was prepped and draped in sterile fashion and local anesthesia was achieved with 1% lidocaine. Under direct ultrasound guidance, 3 25-gauge fine needle aspirations of the right supraclavicular lymph node were performed. Samples were deemed preliminarily adequate by pathology. The patient tolerated the procedure well and no immediate complications were evident. IMPRESSION: Ultrasound guided fine needle aspiration of right supraclavicular lymph node. Electronically signed by: Samy Lowe M.D. 08/11/2017 2:09 PM Dictated Date/Time: 08/11/2017 2:04 PM
== END | disposition home or self-care (01) ==
LOC: C.ULTR 10:49
PROVIDERS: ATTEND Surgery
DX: C50.919 Malignant neoplasm of unspecified site of unspecified female breast (principal); R59.0 Localized enlarged lymph nodes

== ENCOUNTER → 2017-09-19 | Outpatient (CLI) | payer OTHER ==
[2017-09-19 11:32] LABS: BASO % 0.1 %; BASO ABS # 0.01 K/uL (0-0.2); COMPLETE YES; HEMATOCRIT 38.6 % (37-47); IG% 0.7 %; LYMPH % 4.7 %; LYMPH ABS # 0.45 K/uL (1.2-3.4); MEAN CELL VOLUME 89.1 fL (80-100); MEAN CORPUSCULAR HEMOGLOBIN 29.8 pg (25-34); MEAN CORPUSCULAR HGB CONC 33.4 g/dl (32-36); MEAN PLATELET VOLUME 9.8 fL (7.4-10.4); MONO % 1.8 %; NEUT % 92.7 %; PLATELET COUNT 376 K/uL (130-400); RED BLOOD COUNT 4.33 M/uL (4.2-5.4); WHITE BLOOD COUNT 9.58 K/uL (4.8-10.8)
[2017-09-19 11:55] LABS: ALT/SGPT 18 U/L (12-78); AST/SGOT 9 U/L (15-37); BLOOD UREA NITROGEN 10 mg/dl (7-18); BUN/CREATININE RATIO 12.5 (10-20); CALCIUM 8.7 mg/dl (8.5-10.1); CARBON DIOXIDE 26 mmol/L (21-32); CHLORIDE 106 mmol/L (98-107); CREATININE 0.83 mg/dl (0.60-1.20); GLUCOSE 128 mg/dl (70-99); POTASSIUM 4.3 mmol/L (3.5-5.1); SODIUM 138 mmol/L (136-145)
[2017-09-19 11:57] LABS: ALB/GLOB RATIO 0.9 (0.9-2); ALKALINE PHOSPHATASE 87 U/L (45-117)
== END | disposition home or self-care (01) ==
LOC: C.LAB 16:49
PROVIDERS: ATTEND Internal Medicine Hematology & Oncology
DX: C50.912 Malignant neoplasm of unspecified site of left female breast (principal)

== ENCOUNTER → 2017-10-09 | Outpatient (CLI) | payer OTHER ==
[~2017-10-09] MED LIST changes: +OPTIRAY 320 IV PRN
--- NOTE | 2017-10-09 15:08 | DIAGNOSTIC IMAGING REPORT ---
CHEST CT WITH CONTRAST CT DOSE: HISTORY: Breast cancer. TECHNIQUE: Multiaxial CT images of the chest were performed following the intravenous administration of contrast. A dose lowering technique was utilized adhering to the principles of ALARA. COMPARISON: Chest CT 12/09/2016. PET CT 07/23/2017. FINDINGS: Mildly enlarged bilateral lower cervical lymph nodes which have increased in size. There is also bilateral supraclavicular lymphadenopathy. The left supraclavicular lymph nodes have increased in size. The right supraclavicular lymph nodes are similar to the prior PET/CT. No significant axillary lymphadenopathy. Prior left mastectomy. Multiple enlarged mediastinal lymph nodes are again noted. These are stable to slightly decreased in size. Dominant right peritracheal lymph node measures 1.3 cm, previously measuring 1.6 cm. A necrotic left internal mammary lymph node is similar in size measuring approximately 2.7 cm. Right jugular Port-A-Cath terminates in the distal SVC. The heart is normal in size. No pleural or pericardial effusions. No suspicious lytic or blastic osseous lesions. No pneumothorax. Stable 3 mm subpleural nodular density within the left upper lobe on image 125. A few punctate calcified granulomas within the left lower lobe posteriorly. The central airways are patent. No new or suspicious pulmonary nodules identified. IMPRESSION: Overall, mixed response compared to the prior study. The mildly enlarged lower cervical lymph nodes have increased in size along with the left supraclavicular lymph nodes. The right supraclavicular lymph nodes are similar to the prior PET/CT. The mediastinal lymph nodes are stable to slightly decreased in size. Electronically signed by: David Durán M.D. 10/09/2017 3:06 PM Dictated Date/Time: 10/09/2017 2:57 PM
--- NOTE | 2017-10-09 15:34 | DIAGNOSTIC IMAGING REPORT ---
ABDOMEN AND PELVIS CT WITH IV AND ORAL CONTRAST CT DOSE: 775.49 mGy.cm HISTORY: BREAST CA TECHNIQUE: Multiaxial CT images of the abdomen and pelvis were performed following the use of intravenous and oral contrast. A dose lowering technique was utilized adhering to the principles of ALARA. COMPARISON STUDY: Head CT 07/23/2017. Abdomen and pelvis CT 08/26/2016. FINDINGS: There is an 8 mm hypodense lesion within the right hepatic lobe. This is technically too small to characterize but favors a benign lesion such as a small hemangioma. This appears to be stable in size from the prior study. No new hepatic lesions identified. The gallbladder, spleen, adrenal glands, kidneys, and pancreas are unremarkable. No retroperitoneal lymphadenopathy. Bladder is not well-distended. Small amount of pelvic free fluid which is slightly progressed. There is also progressive dilatation of multiple left adnexal venous structures. There is no evidence for ovarian vein thrombosis. Therefore, this is of uncertain clinical significance. The uterus and right adnexa are unremarkable. Mild thickening of the cecum, ascending colon and hepatic flexure of the colon. This is new from the prior study. There is moderate thickening of the distal ileum. No evidence for bowel obstruction. IMPRESSION: 1. Progressive dilatation and enhancement within multiple left adnexal venous structures. There is no evidence for ovarian vein thrombosis. This corresponds to the abnormality on the prior PET/CT. This has a non masslike appearance. However, recommend pelvic ultrasound for further evaluation and to exclude the possibility of a left adnexal mass. 2. Redemonstration of the ileitis which now extends into the cecum and ascending colon. This is consistent with a nonspecific enterocolitis and could be due to an infectious, inflammatory, or neutropenia process.. Electronically signed by: David Durná M.D. 10/09/2017 3:32 PM Dictated Date/Time: 10/09/2017 3:17 PM
== END | disposition home or self-care (01) ==
LOC: C.CTS 12:49
PROVIDERS: ATTEND Internal Medicine Hematology & Oncology
DX: C50.912 Malignant neoplasm of unspecified site of left female breast (principal)

== ENCOUNTER → 2017-10-20 | Outpatient (CLI) | payer OTHER ==
[~2017-10-20] MED LIST changes: -OPTIRAY 320 IV PRN
--- NOTE | 2017-10-20 12:28 | DIAGNOSTIC IMAGING REPORT ---
PET/CT CLINICAL HISTORY: Breast cancer. COMPARISON STUDY: PET/CT scan dated 07/23/2017. CT scan of the chest, abdomen, and pelvis dated 10/09/2017. TECHNIQUE: One hour following the IV administration of 12.56 mCi of F-18 FDG, PET/CT examination was performed from the orbital meatal line through the bony pelvis. Noncontrast CT is performed for the purposes of anatomic correlation and attenuation correction. Note that this does not reflect a diagnostic CT examination. Images were reviewed on a separate [employer] independent workstation. Fused images were obtained. Standard uptake values reported are maximum values within the region of interest expressed in gm/mL. FINDINGS: PET FINDINGS: Head and neck: There is expected physiologic activity within the visualized brain parenchyma at the skull base and the salivary glands. Enlarged and FDG avid supraclavicular lymph nodes are again noted. The largest node is seen on the right on image #39 and measures 2.2 cm. The largest on the left seen on image #38 and measures 1.6 cm. These demonstrate a maximum SUV 4.4 and have not significantly changed from 10/09/2017. Thorax: Evaluation of the thorax demonstrates expected physiologic myocardial activity. The left breast is surgically absent. There is no evidence of recurrent lesion in the left chest wall at the operative site. No FDG avid lesion is identified in the right breast. There is a 1.1 cm left axillary lymph node seen on image #53. This demonstrates faint FDG activity with a maximum SUV of 1.7. A right subpectoral lymph node image #15 measures 1.4 cm and demonstrates a maximum SUV of 4.5. There are enlarged and FDG avid mediastinal and internal mammary lymph nodes. A left internal mammary node on image #70 extends towards the chest wall and measures 3.3 x 2.3 cm. This demonstrates a maximum SUV of 4.0. No FDG avid pulmonary lesion is identified. Abdomen and pelvis: There is expected activity within the liver, spleen, kidneys, renal collecting system, and bladder. Low-level bowel activity is likely within physical limits. Focal FDG activity in the left adnexa is again noted with a maximum SUV of 5.4. This is similar to the 07/23/2017 examination, and large dilated pelvic vessels were seen in this region by CT. This remains indeterminant. Wall thickening and edema is again seen involving the distal ileum. This demonstrates FDG activity, and is similar to the prior study. Unenhanced CT images: The visualized portion of the maxillary antra appear clear. The salivary and thyroid glands are normal as imaged. The thoracic aorta is normal in caliber. The heart is normal in size and there is trace pericardial effusion. A right internal jugular central venous infusion port is in place. Trace pleural effusions are noted. There is no airspace consolidation typical for pneumonia. The unenhanced liver, gallbladder, spleen, adrenal glands, kidneys, and pancreas are grossly normal. The abdominal aorta is normal in course and caliber. There is no bowel obstruction. A normal appendix is identified. No intraperitoneal free air is seen. Free fluid is identified in the cul-de-sac. There is a tiny fat-containing umbilical hernia. There is no upper abdominal, retroperitoneal, mesenteric, or inguinal lymphadenopathy. The skeletal structures are well mineralized. Mild lumbosacral spondylosis is observed. No lytic or blastic bony lesion is clearly seen. IMPRESSION: 1. No significant change from the 10/09/2017 examinations. 2. Status post left mastectomy. 3. FDG avid supraclavicular, left axillary, right subpectoral, mediastinal, and internal mammary lymphadenopathy is similar to previous. 4. Ileitis is again noted. 5. Indeterminant FDG activity in the left pelvis remains of indeterminant etiology and significance. Dilated pelvic vessels were seen in this region on the recent CT scan. If further assessment is desired then pelvic ultrasound would be appropriate. 6. There is a small volume of free fluid in the cul-de-sac. 7. Trace left pleural effusion. 8. Additional findings as above. Electronically signed by: Lamonte Pena M.D. 10/20/2017 12:26 PM Dictated Date/Time: 10/20/2017 12:12 PM
== END | disposition home or self-care (01) ==
LOC: C.PET 09:37
PROVIDERS: ATTEND Internal Medicine Hematology & Oncology
DX: C50.912 Malignant neoplasm of unspecified site of left female breast (principal); Z90.12 Acquired absence of left breast and nipple; K52.9 Noninfective gastroenteritis and colitis, unspecified; J90 Pleural effusion, not elsewhere classified

== ENCOUNTER → 2017-11-19 | Outpatient (CLI) | payer OTHER ==
[~2017-11-19] MED LIST changes: +OPTIRAY 320 IV PRN
--- NOTE | 2017-11-19 14:17 | DIAGNOSTIC IMAGING REPORT ---
CT OF THE CHEST WITH IV CONTRAST CLINICAL HISTORY: Breast cancer. COMPARISON STUDY: Chest CT October 09, 2017 and PET/CT October 20, 2017. TECHNIQUE: Following IV administration of 93 mL of Optiray-320, helical axial images of the chest were obtained. Sagittal and coronal reconstructions were viewed as well as maximal intensity projections on an independent 3-D workstation. A dose lowering technique was utilized adhering to the principles of ALARA. CT DOSE: 873.99 mGy.cm FINDINGS: The patient is status post left mastectomy. There is no axillary lymphadenopathy. The previously described left internal mammary chain lymph node is similar to prior chest CT and PET/CT. This measures 2.6 cm. A high right paratracheal lymph node shown image 71 of 316 has slightly increased in size since CT of October 09, 2017. This node now measures 1.6 cm. It previously measured 1.3 cm. A left supraclavicular node shown image 33 has increased in size. This node measures 1.3 cm in short axis diameter. An additional left supraclavicular lymph node has decreased in size. Right supraclavicular lymph nodes are similar to prior exam. A trace pericardial effusion is noted. There are trace bilateral pleural effusions. These have increased. Several left pleural nodules are noted. These suggest pleural metastatic disease. A 4 mm left anterior pleural nodule is new. A few tiny pulmonary nodules are unchanged. No suspicious osseous lesions are present. The abdomen and pelvis will be reported separately. IMPRESSION: 1. Findings suggestive of a mixed treatment response. However, overall mild progression of metastatic disease when compared to chest CT of October 09, 2017 and PET/CT of October 20, 2017. Slight increase in mediastinal lymphadenopathy with mixed response within supraclavicular and lower cervical lymph nodes. 2. Several left pleural nodules with trace bilateral pleural effusions. The findings suggest pleural metastatic disease. Electronically signed by: Samy Lowe M.D. 11/19/2017 2:15 PM Dictated Date/Time: 11/19/2017 1:55 PM
--- NOTE | 2017-11-19 14:18 | DIAGNOSTIC IMAGING REPORT ---
ABDOMEN AND PELVIS CT WITH IV AND ORAL CONTRAST HISTORY: Follow-up study in a patient with breast cancer BREAST CA. Prior left mastectomy. TECHNIQUE: Multiaxial CT images of the abdomen and pelvis were performed following the use of intravenous and oral contrast. A dose lowering technique was utilized adhering to the principles of ALARA. COMPARISON STUDY: PET/CT 10/20/2017, chest CT of same day, CT abdomen and pelvis 10/09/2017. FINDINGS: Trace bilateral pleural effusions with bibasilar dependent groundglass opacities suggesting atelectasis. There is a 11 x 5 mm area of soft tissue attenuation involving the pleural surface adjacent to the inferior segment lingula, image 38 series 7. Linear subsegmental consolidative opacities of the medial segment right middle lobe suggests additional atelectasis or scarring. There is no pneumatosis or pneumoperitoneum identified. Trace pericardial effusion. Coronary arterial disease. Unchanged ill-defined area of low-attenuation of the left hepatic lobe adjacent to the falciform ligament, possibly reflecting focal fatty infiltration. Indeterminate 6 mm area of low-attenuation of the posterior right hepatic lobe, image 12 series 5 is unchanged. No intrahepatic biliary ductal dilation. The spleen, gallbladder, pancreas and adrenal glands are within normal limits. Kidneys, and ureters are unremarkable. Mild circumferential wall thickening of the bladder. Uterus is unremarkable. Prominent vessels of the pelvis are again seen, left greater than right which have progressively worsened from comparison study. Specifically, there is a focal area of heterogeneous attenuation with peripheral enhancement of the left hemipelvis, 3.0 x 2.3 cm on image 293 series 7 suspicious for a focal mass which has progressed from prior study. Small volume perihepatic and pelvic ascites noted. Aorta is normal in course and caliber. No bulky retroperitoneal adenopathy. No bowel obstruction identified. There is moderate volume of formed stool throughout the colon. Moderate circumferential wall thickening of the terminal ileum redemonstrated with mild surrounding inflammatory change, image 290 series 7. This has mildly improved from prior study. The appendix appears normal in caliber. Nonspecific mildly prominent lymph nodes of the right lower quadrant mesentery measuring up to 7 mm in short axis as seen on image 239 series 7. Soft tissues are unremarkable. Bony fusion of the pubic symphysis. Moderate facet arthrosis of the lower lumbar spine with grade 1 anterolisthesis L4 on L5. No suspicious lytic or blastic bony lesions to suggest metastasis. IMPRESSION: 1. Progressively worsened soft tissue attenuation with adjacent prominent venous structures of the left hemipelvis with a focal left adnexal soft tissue mass measuring up to 3 cm suspicious for metastasis. This could be correlated with pelvic ultrasound. 2. Small volume perihepatic and pelvic ascites with trace bilateral pleural and pericardial effusions. 3. 11 mm soft tissue attenuating pleural-based lesion adjacent to the inferior segment lingula as above suggests pleural metastasis. Please refer to chest CT of same day for further details. 4. Mildly improved appearance of the previously noted ileitis. 5. No evidence of bony metastasis. Electronically signed by: Willie Paulson M.D. 11/19/2017 2:16 PM Dictated Date/Time: 11/19/2017 1:55 PM
== END | disposition home or self-care (01) ==
LOC: C.CTS 12:51
PROVIDERS: ATTEND Internal Medicine Hematology & Oncology
DX: C50.912 Malignant neoplasm of unspecified site of left female breast (principal); R93.5 Abnormal findings on diagnostic imaging of other abdominal regions, including retroperitoneum; R18.8 Other ascites; R91.8 Other nonspecific abnormal finding of lung field; K52.9 Noninfective gastroenteritis and colitis, unspecified; R59.0 Localized enlarged lymph nodes

== ENCOUNTER → 2018-01-20 | Outpatient (CLI) | payer OTHER ==
--- NOTE | 2018-01-20 15:22 | DIAGNOSTIC IMAGING REPORT ---
ABD/PELVIS IV AND ORAL CONT CT DOSE: 660.37 mGy.cm HISTORY: Breast carcinoma BREAST CA TECHNIQUE: Multiaxial CT images of the abdomen and pelvis were performed following the use of intravenous and oral contrast. A dose lowering technique was utilized adhering to the principles of ALARA. COMPARISON STUDY: 11/19/2017 FINDINGS: Improved appearance to the lung bases. Minimal residual atelectatic change left base. The pleural effusions have resolved. The left millimeter nodular density appears described is now minimal in terms of dimension at no more than 4 mm. Liver continues show a 5 mm hypodensity posterior aspect right hepatic lobe. This again is too small to quantify but appears unchanged. Liver otherwise is uniform. Gallbladder is contracted. There is no significant abdominal ascites. Time which is improved finding compared to the prior study. Kidneys enhance uniformly. The adrenal glands are unremarkable. The spleen is unremarkable. The appendix is normal. The bowel pattern continues to show wall thickening of the distal and terminal ileal regions. Overall extent is probably slightly increased from the prior exam. This is been described as ileitis on prior studies. Slight increase in several regional reactive nodes within the right central pelvis. No evidence for abscess collection or obstructive change. Ascites within the pelvis appears to resolve. There appears to be a 2.7 cm left ovarian cyst. Uterus remains anteflexed. Bladder is midline. There is no significant low pelvic or inguinal adenopathy. The bony structures remain negative for lytic or blastic process. There are mild degenerative changes of the posterior elements of the lumbar spine as well as sacroiliac joints. IMPRESSION: 1. Mixed findings compared to the prior study. 2. The findings of ileitis involving the distal and terminal ileum is newly increased in linear extent. 3. The ascites has completely resolved, however with no significant residual pleural effusions. 4. 5 mm posterior right hepatic lobe hypodensity is unchanged. 5. The 3 cm left adnexal mass previously described is diminished or resolved. There is a 2.7 cm left ovarian cyst. 6. Lung base appearance is considerably improved from the prior study with minimal to no residual pleural-based nodularity The above report was generated using voice recognition software. It may contain grammatical, syntax or spelling errors. Electronically signed by: Henry Wright M.D. 01/20/2018 3:21 PM Dictated Date/Time: 01/20/2018 3:08 PM
--- NOTE | 2018-01-20 15:22 | DIAGNOSTIC IMAGING REPORT ---
CHEST CT WITH CONTRAST CT DOSE: HISTORY: Breast cancer. TECHNIQUE: Multiaxial CT images of the chest were performed following the intravenous administration of contrast. A dose lowering technique was utilized adhering to the principles of ALARA. COMPARISON: Chest CT 11/19/2017. FINDINGS: The central airways are patent. Groundglass density within the last within the left lung base suggestive of mild dependent change. Tiny cluster of tree-in-bud nodules within the right middle lobe on image 153. This favors mild inflammatory/infectious change. No new pulmonary nodules identified. The left pleural effusion has resolved. No pneumothorax. Interval decrease in size in the bilateral supraclavicular lymph nodes. The dominant left retroclavicular lymph node measures 1.4 x 0.9 cm. This previously measured 2.4 x 1.3 cm. Multiple mediastinal lymph nodes have also significantly decreased in size. These now measure subcentimeter in short axis diameter. The left internal mammary metastatic focus is also improved. This currently measures 2.1 cm, previously measuring 3.1 cm. No pericardial effusion. No hilar lymphadenopathy. The central pulmonary arteries are patent. No pneumothorax. Please refer to the dedicated abdomen and pelvis CT for further evaluation of the abdominal structures. Decrease in size in the dominant left axillary lymph node which currently measures 8 mm, previously measuring 11 mm. The left breast appears surgically absent. Right jugular Port-A-Cath terminates in the SVC. No suspicious lytic or blastic osseous lesions. The left pleural nodules on the prior study appear to have resolved. IMPRESSION: Overall, interval improvement in metastatic disease as described above with decrease in size of the lymph nodes and resolution of the left pleural effusion. No new sites of metastatic disease identified within the chest. Electronically signed by: David Durán M.D. 01/20/2018 3:21 PM Dictated Date/Time: 01/20/2018 3:08 PM
== END | disposition home or self-care (01) ==
LOC: C.CTS 13:17
PROVIDERS: ATTEND Internal Medicine Hematology & Oncology
DX: C50.912 Malignant neoplasm of unspecified site of left female breast (principal)

== ENCOUNTER 2018-02-11 16:35 | Emergency (ER) | payer OTHER ==
[~2018-02-11] VITALS: Ht 172.7 cm; Wt 79.9 kg
[~2018-02-11 16:35] MED LIST changes: +ONDA-170 PO; -ONDA8TAB6 PO; -OPTIRAY 320 IV PRN
[2018-02-11 16:49] VITALS: TEMP 37; Ht 172.7 cm; Wt 79.9 kg
[2018-02-11] MEDS ORDERED: ONDANSETRON INJ 2 MG/ML 2 ML VIAL IV STA (17:26)
[2018-02-11] MEDS ORDERED: MoRPHine SULFATE 10 MG/ML CARP/VIAL IV STA (17:26)
--- NOTE | 2018-02-11 17:31 | EMERGENCY ROOM VISIT NOTE ---
History Report prepared by Jessenia: Vik Rossi Under the Supervision of: Dr. Kee Samuel M.D. First contact with patient: 17:10 Chief Complaint: OTHER COMPLAINT Stated Complaint: CHEMO FRI-SEVERAL SIDE EFFECT,ABNORMAL PAIN History of Present Illness The patient is a 42 year old white female with a past medical history of breast cancer and Crohn's disease, who presents to the Emergency Room with complaints of severe fluid gain and shortness of breath that the she began to experience on Friday, 5 days ago. The patient states that she has noticed a significant amount of fluid gain in her lower extremities and the left side of her neck. The swelling is causing severe pain in her legs when she walks. The patient was put on Lasix by her oncologist on Friday, but she has not noticed any improvement to this time. She also notes that she has been becoming unusually short of breath over the past 5 days. She cannot even carry her children around without getting out of breath. She is having trouble keeping food down and was vomiting today. She was noticing some blood in the emesis. She has not taken many of her daily medications today due to the vomiting. The patient is diagnosed with Breast Cancer with multiple Metastases and is currently receiving chemotherapy treatments. The patient notes that her bowel movements after her chemo treatments are commonly very lose/watery. She has been experiencing these types of bowel movements. The patient also has Crohn's and admits that some of her symptoms may be due to a flair. 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 A total of ten systems were reviewed and were otherwise negative. Past Medical & Surgical Medical Problems: (1) Breast CA (2) Edema (3) Recurrent breast cancer Surgical Problems: (1) History of left mastectomy (2) History of lumpectomy of left breast (3) History of lymph node biopsy (4) History of lymph node dissection of left axilla (5) History of reconstruction of anterior cruciate ligament tear (6) Port-a-cath in place Family History Non-contributory Social History Smoking Status: Former Smoker Alcohol Use: none Marital Status: Housing Status: lives with family Occupation Status: unemployed Current/Historical Medications Scheduled Balsalazide (Colazal), 2,250 MG PO BIDM Furosemide (Lasix), 40 MG PO DAILY Glycopyrrolate (Glycopyrrolate), 2 MG PO BID Lorazepam (Ativan), 1 MG PO TID Methylphenidate (Ritalin), 5 MG PO BID Multivit/Min/Iron/Fol Ac/Pren ( Vitamin), 1 TAB PO DAILY Pantoprazole (Protonix), 40 MG PO QAM Prochlorperazine Maleate (Compazine), 10 MG PO Q4H Sertraline (Zoloft), 100 MG PO DAILY Scheduled PRN Ondansetron Hcl (Zofran), 8 MG PO PRN PRN for Nausea Oxycodone Immediate Rel Tab (Roxicodone Ir), 5 MG PO Q6H PRN for Pain Oxycodone Ir (Roxicodone Ir), 10 MG PO Q6H PRN for Pain Promethazine Hcl (Phenergan Suppository), 25 MG WV Q6H PRN for Nausea Tramadol (Ultram), 100 MG PO TID PRN for Pain Miscellaneous Medications Prednisone (Prednisone), 20 MG PO Allergies Coded Allergies: Latex (Verified Allergy, Intermediate, ERRYTHEMA, 02/11/18) Phenazopyridine (Verified Allergy, Intermediate, vomitting, 02/11/18) Adhesives (Unverified Allergy, Unknown, SKIN IRRITATION RASH, 02/11/18) Penicillins (Unverified Allergy, Unknown, SKIN IRRITATION SWELLING VOMITING, 02/11/18) Sulfa Antibiotics (Unverified Allergy, Unknown, SKIN IRRITATION SWELLING VOMITING, 02/11/18) Physical Exam Vital Signs Date Time Temp Pulse Resp B/P (MAP) Pulse Ox O2 Delivery O2 Flow Rate FiO2 02/11/18 21:26 72 18 111/63 99 02/11/18 19:29 72 02/11/18 19:19 78 111/63 99 02/11/18 16:49 37.0 83 18 133/68 100 Room Air Physical Exam GENERAL: Tearful, Awake, alert, well-appearing, NAD HENT: Normocephalic, atraumatic. EYES: Normal conjunctiva. Sclera non-icteric. NECK: Supple. No nuchal rigidity. FROM. CHEST: There is a port in the right chest. RESPIRATORY: CTAB, no rhonchi, wheezing, crackles CARDIAC: RRR, no MRG ABDOMEN: Soft, mild diffuse abdominal discomfort, BS+ MSK: No chest wall TTP, no LE edema NEURO: GCS 15, CN 2-12 intact, moves all 4s on command SKIN: No rash or jaundice noted. Medical Decision & Procedures ER Provider Diagnostic Interpretation: Radiology results as stated below per my review and radiologist interpretation: PA CHEST WITH ABDOMINAL SERIES CLINICAL HISTORY: Generalized abdominal pain. FINDINGS: A PA chest radiograph is compared to study dated 02/13/2017 and correlated with chest CT dated 01/20/2018. A right internal jugular central venous infusion port is unchanged in position. A tiny metallic foreign body is again seen in the left upper chest wall. The cardiomediastinal silhouette is unremarkable. The lungs and pleural spaces are clear. No pneumothorax is seen. The bony thorax is grossly intact. There is mild thoracolumbar scoliosis. Supine and erect abdominal radiographs are correlated with abdominal CT dated 01/20/2018. There is a nonobstructed abdominal bowel gas pattern. Moderate constipation is identified. No evidence of intraperitoneal free air is seen. There are no abnormal abdominal calcifications. Phleboliths are observed in the pelvis. The lumbosacral spine and bony pelvis appear intact. IMPRESSION: 1. No active disease in the chest. 2. Nonobstructed abdominal bowel gas pattern. Electronically signed by: Lamonte Pena M.D. 02/11/2018 6:33 PM Dictated Date/Time: 02/11/2018 6:[address] ANGIOGRAM OF THE CHEST CLINICAL HISTORY: Atypical chest pain. History of metastatic breast cancer. COMPARISON STUDY: Chest x-ray dated 02/11/2018. Chest CT scans dated 01/20/2018 and 08/26/2016. PET/CT dated 10/20/2017. TECHNIQUE: Following the IV administration of 118 cc of Optiray 320, CT angiogram of the chest was performed from the upper abdomen to the thoracic inlet utilizing the pulmonary embolus protocol. Images are reviewed in the axial, sagittal, and coronal planes. 3-D MIPS images are created and assessed. IV contrast was administered without complication. A dose lowering technique was utilized adhering to the principles of ALARA. FINDINGS: Thyroid: Imaged portions of the thyroid gland are normal in size and attenuation. Thoracic aorta: The thoracic aorta is normal in caliber and demonstrates standard 3-vessel arch anatomy. No dissection is seen. A right internal jugular central venous infusion port is in place. Pulmonary vasculature: The pulmonary trunk is normal in caliber. There are no filling defects identified in main, lobar, or segmental pulmonary branches to suggest pulmonary embolus. Heart: The heart is normal in size and there is a small pericardial effusion. Lungs and pleural spaces: There is no airspace consolidation or pleural effusion. Bibasilar scarring versus atelectasis is identified. The trachea and central airways are patent. A 2 mm left upper lobe nodule in image #172 is unchanged dating back to 08/26/2016 and is of doubtful significance. No concerning pulmonary lesion is identified. Mediastinum: A prominent high prevascular lymph node on image #227 is unchanged and measures up to 9 mm. Additional prominent prevascular nodes are seen on image #198. Enlarged left internal mammary node on image 193 measures 1.8 x 1.5 cm. Mary Grace: Clear. Axillae: No pathologically enlarged axillary lymph nodes are identified. An indeterminant 9 mm left axillary lymph node seen on image #2 wedge and 33 has not significantly changed from previous. Upper abdomen: Partially visualized upper abdominal viscera is within normal limits. Skeletal structures: The skeletal structures are osteopenic. No lytic or blastic bony lesions are seen. Soft tissues: The left breast is surgically absent. IMPRESSION: 1. There is no evidence of pulmonary embolus in the main, lobar, or segmental pulmonary arteries. 2. There is no airspace consolidation or pleural effusion. 3. Prominent left axillary, mediastinal, and left internal mammary lymph nodes are similar to 01/20/2018 and consistent with the patient's known history of metastatic disease. Electronically signed by: Lamonte Pena M.D. 02/11/2018 8:22 PM Dictated Date/Time: 02/11/2018 8:[address] SCAN OF THE ABDOMEN AND PELVIS WITH IV CONTRAST CLINICAL HISTORY: Generalized abdominal pain. History of metastatic breast cancer. COMPARISON STUDY: Abdominal CT dated 01/20/2018. TECHNIQUE: Following the IV administration of 118 cc of Optiray 320, CT scan of the abdomen and pelvis is performed from the lung bases to the proximal femora. Images are reviewed in the axial, sagittal, and coronal planes. IV contrast was administered without complication. A dose lowering technique was utilized adhering to the principles of ALARA. CT DOSE: 782.56 mGy.cm FINDINGS: Lung bases: The heart is normal in size and without pericardial effusion. The tip of a central venous infusion port is noted at the cavoatrial junction. The lung bases are clear noting bibasilar scarring/atelectasis. Liver: The contrast-enhanced liver is normal in size, contour, and attenuation. Fatty infiltration is seen adjacent to falciform ligament. There is no intrahepatic biliary ductal dilatation. The hepatic veins and portal veins are patent. Mild periportal edema is identified. A subcentimeter hypodensity in the right lobe on image #84 is unchanged in previous and likely represents a small cyst. Gallbladder: Unremarkable. Spleen: Normal in size and attenuation. Pancreas: Unremarkable. Adrenal glands: A 1.4 cm left adrenal nodule is unchanged from previous and indeterminant. The right adrenal gland is normal in appearance. Kidneys: The contrast enhanced kidneys are normal in size and without hydronephrosis. The kidneys enhance symmetrically. Abdominal vasculature: The abdominal aorta is normal in course and caliber. Bowel: There is a long segment of wall thickening/edema as well as mucosal hyperemia involving the distal/terminal ileum. This extensive over 20 cm in length. Mild fecalization in the upstream small bowel loops suggests stasis. No bowel obstruction is seen. There is only mild inflammatory change in the surrounding mesentery. Trace interloop fluid is noted. There is no pneumatosis intestinalis or portal venous gas. There is no evidence of fistula or abscess. There is mild colonic fecal retention. The appendix is well-visualized and normal. Peritoneum: There is no intraperitoneal free air or abdominal ascites. There is a fat-containing umbilical hernia. Lymphadenopathy: Prominent mesenteric lymph nodes are likely on a reactive basis. Pelvic viscera: The bladder is decompressed and grossly unremarkable. Uterus and adnexa are normal as visualized. Bilateral ovarian follicles are observed. A small volume of free fluid is seen in the cul-de-sac. Skeletal structures: No lytic or blastic lesions are seen. There is complete bony fusion at the pubic symphysis. Sclerotic change is seen involving the sacroiliac joints, right greater than left. Mild spondylotic change is noted in the lumbar spine. IMPRESSION: 1. Findings are consistent with a long segment of enteritis involving the distal/terminal ileum as detailed above. This is likely on an infectious or inflammatory basis, and this is similar in appearance to the 01/20/2018 examination. Clinical correlation will be required. 2. There is no evidence of bowel obstruction, abscess, or perforation. 3. There is trace interloop fluid. A small volume of free fluid seen in the pelvis. This may be on a reactive basis. 4. Additional findings as above. Electronically signed by: Lamonte Pena M.D. 02/11/2018 8:37 PM Dictated Date/Time: 02/11/2018 8:29 PM Laboratory Results 02/11/18 18:46 Red Blood Count 2.36, Mean Corpuscular Volume 89.8, Mean Corpuscular Hemoglobin 30.1, Mean Corpuscular Hemoglobin Concent 33.5, Mean Platelet Volume 9.8, Neutrophils (%) (Auto) 45.7, Lymphocytes (%) (Auto) 52.3, Monocytes (%) (Auto) 1.0, Eosinophils (%) (Auto) 0.5, Basophils (%) (Auto) 0.0, Neutrophils # (Auto) 0.91, Lymphocytes # (Auto) 1.04, Monocytes # (Auto) 0.02, Eosinophils # (Auto) 0.01, Basophils # (Auto) 0.00 02/11/18 17:45 Test 02/11/18 17:45 02/11/18 17:58 02/11/18 18:46 Anion Gap 4.0 mmol/L (3-11) Est Creatinine Clear Calc Drug Dose 81.3 ml/min Estimated GFR () 80.5 Estimated GFR (Non- 69.4 BUN/Creatinine Ratio 21.7 (10-20) Calcium Level 8.4 mg/dl (8.5-10.1) Total Bilirubin 0.3 mg/dl (0.2-1) Direct Bilirubin < 0.1 mg/dl (0-0.2) Aspartate Amino Transf (AST/SGOT) 48 U/L (15-37) Alanine Aminotransferase (ALT/SGPT) 22 U/L (12-78) Alkaline Phosphatase 58 U/L (45-117) Troponin I < 0.015 ng/ml (0-0.045) Pro-B-Type Natriuretic Peptide 589 pg/ml (0-450) Total Protein 5.7 gm/dl (6.4-8.2) Albumin 2.9 gm/dl (3.4-5.0) Lipase 93 U/L (73-393) Human Chorionic Gonadotropin, Qual NEG (NEG) Urine Color DK YELLOW Urine Appearance CLEAR (CLEAR) Urine pH 8.0 (4.5-7.5) Urine Specific [place] 1.023 (1.000-1.030) Urine Protein NEG (NEG) Urine Glucose (UA) NEG (NEG) Urine Ketones TRACE (NEG) Urine Occult Blood NEG (NEG) Urine Nitrite NEG (NEG) Urine Bilirubin NEG (NEG) Urine Urobilinogen NEG (NEG) Urine Leukocyte Esterase TRACE (NEG) Urine WBC (Auto) 1-5 /hpf (0-5) Urine RBC (Auto) 5-10 /hpf (0-4) Urine Hyaline Casts (Auto) 1-5 /lpf (0-5) Urine Epithelial Cells (Auto) >30 /lpf (0-5) Urine Bacteria (Auto) 1+ (NEG) White Blood Count 1.99 K/uL (4.8-10.8) Red Blood Count 2.36 M/uL (4.2-5.4) Hemoglobin 7.1 g/dL (12.0-16.0) Hematocrit 21.2 % (37-47) Mean Corpuscular Volume 89.8 fL (80-100) Mean Corpuscular Hemoglobin 30.1 pg (25-34) Mean Corpuscular Hemoglobin Concent 33.5 g/dl (32-36) Platelet Count 26 K/uL (130-400) Mean Platelet Volume 9.8 fL (7.4-10.4) Neutrophils (%) (Auto) 45.7 % Lymphocytes (%) (Auto) 52.3 % Monocytes (%) (Auto) 1.0 % Eosinophils (%) (Auto) 0.5 % Basophils (%) (Auto) 0.0 % Neutrophils # (Auto) 0.91 K/uL (1.4-6.5) Lymphocytes # (Auto) 1.04 K/uL (1.2-3.4) Monocytes # (Auto) 0.02 K/uL (0.11-0.59) Eosinophils # (Auto) 0.01 K/uL (0-0.5) Basophils # (Auto) 0.00 K/uL (0-0.2) RDW Standard Deviation 61.4 fL (36.4-46.3) RDW Coefficient of Variation 18.9 % (11.5-14.5) Immature Granulocyte % (Auto) 0.5 % Immature Granulocyte # (Auto) 0.01 K/uL (0.00-0.02) Platelet Estimate SIGNIFIC DECREASED Ovalocytes 1+ Laboratory results reviewed by me Medications Administered Medications (Trade) Dose Ordered Sig/Katherine Route Start Time Stop Time Status Last Admin Dose Admin Ondansetron HCl (Zofran Inj) 4 mg NOW STAT IV 02/11/18 17:26 02/11/18 17:27 DC 02/11/18 17:54 4 MG Morphine Sulfate (MoRPHine SULFATE INJ) 8 mg NOW STAT IV 02/11/18 17:26 02/11/18 17:27 DC 02/11/18 17:54 8 MG Hydromorphone HCl (Dilaudid Inj) 1 mg NOW STAT IV 02/11/18 19:17 02/11/18 19:18 DC 02/11/18 19:24 1 MG Sodium Chloride 1,000 ml @ 999 mls/hr Q1H1M STAT IV 02/11/18 19:22 02/11/18 20:22 DC 02/11/18 19:26 999 MLS/HR Acetaminophen (Tylenol Tab) 650 mg NOW STAT PO 02/11/18 19:24 02/11/18 19:25 DC 02/11/18 20:18 650 MG Ondansetron HCl (Zofran Inj) 4 mg STK-MED ONCE .ROUTE 02/11/18 20:28 02/11/18 20:29 DC 02/11/18 20:28 4 MG ED Course 1719: The patient was evaluated in room B2. A complete history and physical exam was performed. Medical Decision The patient is a 42 year old white female with a past medical history of breast cancer and Crohn's disease, who presents to the Emergency Room with complaints of severe fluid gain and shortness of breath that the she began to experience on Friday, 5 days ago. Differential diagnosis: Etiologies such as infections, reactive airway disease, pneumonia, pneumothorax , COPD, CHF, cardiac ischemia, pulmonary embolism, musculoskeletal, gastrointestinal, as well as others were entertained. Prior records were reviewed. Patient was seen and evaluated the bedside. Patient does have a history of primary breast CA with metastatic disease. Patient also does have Crohn's disease and does see a physician [facility] as well as at [facility]. Patient has stated that she has had some liquid stools. Patient denies any blood in stool. Patient has had some upset stomach with some associated nausea and vomiting. Patient did notice some trace streaks of blood with in the vomiting. Patient also does complain of overall body pain and shortness of breath. The patient has not been able to take any of her at home medications given her inability to tolerate p.o. very well.Patient is noticed that she has become more edematous. On exam the patient has stable vital signs. The patient is tearful. The patient did speak with her primary oncologist was referred here for further evaluation. Patient may have some swelling however it is nonpitting. Patient is not tachypneic nor hypoxic. Of note the patient did have chemotherapy completed on Friday. Patient did have blood work completed along with EKG, troponin, BNP and chest x- ray and abdomen pelvis films. Patient's urinalysis does show positive bacteria but she does have a lot of epithelial cells. Urine culture will be pending. Patient's kidney function is fairly unremarkable although may be prerenal secondary to dehydration. Patient does have some hypoalbuminemia as well as low protein. This may be reflective of her cancer burden. This also may be the cause of her swelling. Patient does have mild elevation in AST. Patient has had mild elevations in AST prior. Patient does have known liver metastases , which may be reflective of this issue. A bedside ultrasound was completed. Patient did have trace pericardial effusion the patient had good squeeze. Patient did have mild collapsibility of the IVC with respiratory inspiration. Patient was given additional IV fluids, and pain medications that she stated that she was still feeling very uncomfortable. Patient appears appears well otherwise. Patient did have a CT PE protocol performed given her cancer history and shortness of breath. Patient also did have a CT of the abdomen pelvis completed given her history of Crohn's and her abdominal pain. Patient' s CTs were fairly unremarkable. Really no new information that was shown compared to priors that were reviewed on January 20. Patient was informed of all these findings. She was told to follow-up with her oncologist. I did discuss with case management in order to help facilitate an earlier appointment if it was needed. Patient was given additional pain medication and antiemetics for home. Given the patient is not hypoxic, tachycardic, tachypneic, nor hypotensive I do not believe that she requires a transfusion at this time. Her count should improve with time given her recent chemotherapy as this was also discussed with the meeting specialist who agreed that the counts would improve and that she did not require transfusion unless symptomatic. Given that her vitals are stable and she is looking well at the bedside believe she requires transfusion at this time. She has no spontaneous bleeding. Patient was given strict follow-up, discharge, and return precautions. All questions were answered. Patient was deemed suitable for outpatient follow-up at this time. Patient agreed with the plan of care and was safely discharged home. Consults Time Called: 2009 Consulting Physician: Dr. Feldman Returned Call: 2012 No need for platelets. Could consider transfusion but not a necessity. Patient can follow up as outpatient provided no other needs to remain inpatient. Impression Primary Impression: SOB (shortness of breath) Additional Impressions: Leg swelling Breast cancer Pancytopenia Nausea & vomiting Scribe Attestation The scribe's documentation has been prepared under my direction and personally reviewed by me in its entirety. I confirm that the note above accurately reflects all work, treatment, procedures, and medical decision making performed by me. Departure Information Dispostion Home / Self-Care Prescriptions Oxycodone Immediate Rel Tab (ROXICODONE IR) 5 Mg Tab 5 MG PO Q6H Y for Pain for 7 Days, #28 TAB Prov: Kee Samuel M.D. 02/11/18 Promethazine Hcl (PHENERGAN SUPPOSITORY) 25 Mg Supp 25 MG WV Q6H Y for Nausea, #10 SUPP Prov: Kee Samuel M.D. 02/11/18 Referrals Leonidas Salter M.D. (PCP) Patient Instructions ED Diet [place], ED Dyspnea Shortness of Breath, ED Nausea Vomiting, [facility], Nausea Vomit Control Additional Instructions Please return to the emergency department if you have worsening or recurrent symptoms not amenable to at-home treatment. Please call for a follow-up appointment with her primary care physician. Please take your medications as prescribed. If you have other concerns and/or complaints please feel free to also call your primary care physician's office or return the ED for further evaluation, management, and treatment. Please continue the follow the recommendations as instructed by your inside sales supervisor with regard to your Crohn's. Please take your medications as prescribed. Please keep your follow-up appointment with your oncologist. To help with your leg swelling consider compression stockings or Maciel bandages. Raise your legs when you are sitting. Take your medications as prescribed. You have been examined and treated today on an emergency basis only. This is not a substitute for, or an effort to provide, complete comprehensive medical care. It is impossible to recognize and treat all injuries or illnesses in a single emergency department visit. It is therefore important that you follow up closely with [facility], your PCP, and/or your specialist(s). Call as soon as possible for an appointment. Thank you for your time and consideration. I look forward to speaking with you again soon. Please don't hesitate to call us if you have any questions. Problem Qualifiers Additional Impressions: Breast cancer Breast location: unspecified site of breast Estrogen receptor status: unspecified Patient sex: female Laterality: unspecified laterality Qualified Codes: C50.919 - Malignant neoplasm of unspecified site of unspecified female breast Nausea & vomiting Vomiting type: unspecified Vomiting Intractability: non-intractable Qualified Codes: R11.2 - Nausea with vomiting, unspecified
[2018-02-11] MEDS ORDERED: PRENTAB26 PO (17:45)
[2018-02-11] MEDS ORDERED: ATV/1 PO (17:45)
[2018-02-11] MEDS ORDERED: TRAM-10 PO (17:45)
[2018-02-11] MEDS ORDERED: RBN/2 PO (17:45)
[2018-02-11] MEDS ORDERED: PROC1TAB5 PO (17:45)
[2018-02-11] MEDS ORDERED: PRED20TA PO (17:45)
[2018-02-11] MEDS ORDERED: OXYC1TAB3 PO ×2 (17:45→21:06)
[2018-02-11] MEDS ORDERED: METH5TAB4 PO (17:45)
[2018-02-11] MEDS ORDERED: SERT-234 PO (17:45)
[2018-02-11] MEDS ORDERED: FRS/40 PO (17:45)
[2018-02-11 18:17] LABS: ALBUMIN 2.9 gm/dl (3.4-5.0); ALT/SGPT 22 U/L (12-78); AST/SGOT 48 U/L (15-37); BLOOD UREA NITROGEN 22 mg/dl (7-18); CALCIUM 8.4 mg/dl (8.5-10.1); CARBON DIOXIDE 32 mmol/L (21-32); GLUCOSE 95 mg/dl (70-99); LIPASE 93 U/L (73-393); POTASSIUM 3.7 mmol/L (3.5-5.1); SODIUM 137 mmol/L (136-145)
[2018-02-11 18:19] LABS: ALKALINE PHOSPHATASE 58 U/L (45-117); TOTAL PROTEIN 5.7 gm/dl (6.4-8.2)
--- NOTE | 2018-02-11 18:34 | DIAGNOSTIC IMAGING REPORT ---
PA CHEST WITH ABDOMINAL SERIES CLINICAL HISTORY: Generalized abdominal pain. FINDINGS: A PA chest radiograph is compared to study dated 02/13/2017 and correlated with chest CT dated 01/20/2018. A right internal jugular central venous infusion port is unchanged in position. A tiny metallic foreign body is again seen in the left upper chest wall. The cardiomediastinal silhouette is unremarkable. The lungs and pleural spaces are clear. No pneumothorax is seen. The bony thorax is grossly intact. There is mild thoracolumbar scoliosis. Supine and erect abdominal radiographs are correlated with abdominal CT dated 01/20/2018. There is a nonobstructed abdominal bowel gas pattern. Moderate constipation is identified. No evidence of intraperitoneal free air is seen. There are no abnormal abdominal calcifications. Phleboliths are observed in the pelvis. The lumbosacral spine and bony pelvis appear intact. IMPRESSION: 1. No active disease in the chest. 2. Nonobstructed abdominal bowel gas pattern. Electronically signed by: Lamonte Pena M.D. 02/11/2018 6:33 PM Dictated Date/Time: 02/11/2018 6:31 PM
[2018-02-11] MEDS ORDERED: HYDROmorphone INJ 1 MG/ML SYR IV STA (19:17)
[2018-02-11] MEDS ORDERED: SODIUM CHLORIDE 0.9% 1000ML 1,000 ML IV STA (19:22)
[2018-02-11] MEDS ORDERED: ACETAMINOPHEN 325 MG TAB PO STA (19:24)
[2018-02-11] MEDS ORDERED: OPTIRAY 320 IV PRN (19:30)
[2018-02-11 19:50] LABS: EOS % 0.5 %; EOS ABS # 0.01 K/uL (0-0.5); HEMATOCRIT 21.2 % (37-47); HEMOGLOBIN 7.1 g/dL (12.0-16.0); IG# 0.01 K/uL (0.00-0.02); LYMPH % 52.3 %; LYMPH ABS # 1.04 K/uL (1.2-3.4); MEAN CELL VOLUME 89.8 fL (80-100); MEAN CORPUSCULAR HEMOGLOBIN 30.1 pg (25-34); MEAN CORPUSCULAR HGB CONC 33.5 g/dl (32-36); MEAN PLATELET VOLUME 9.8 fL (7.4-10.4); MONO ABS # 0.02 K/uL (0.11-0.59); NEUT % 45.7 %; NEUT ABS # 0.91 K/uL (1.4-6.5); PLATELET COUNT 26 K/uL (130-400); RED CELL DISTRIBUTION WIDTH CV 18.9 % (11.5-14.5); RED CELL DISTRIBUTION WIDTH SD 61.4 fL (36.4-46.3); WHITE BLOOD COUNT 1.99 K/uL (4.8-10.8)
--- NOTE | 2018-02-11 20:24 | DIAGNOSTIC IMAGING REPORT ---
CT ANGIOGRAM OF THE CHEST CLINICAL HISTORY: Atypical chest pain. History of metastatic breast cancer. COMPARISON STUDY: Chest x-ray dated 02/11/2018. Chest CT scans dated 01/20/2018 and 08/26/2016. PET/CT dated 10/20/2017. TECHNIQUE: Following the IV administration of 118 cc of Optiray 320, CT angiogram of the chest was performed from the upper abdomen to the thoracic inlet utilizing the pulmonary embolus protocol. Images are reviewed in the axial, sagittal, and coronal planes. 3-D MIPS images are created and assessed. IV contrast was administered without complication. A dose lowering technique was utilized adhering to the principles of ALARA. FINDINGS: Thyroid: Imaged portions of the thyroid gland are normal in size and attenuation. Thoracic aorta: The thoracic aorta is normal in caliber and demonstrates standard 3-vessel arch anatomy. No dissection is seen. A right internal jugular central venous infusion port is in place. Pulmonary vasculature: The pulmonary trunk is normal in caliber. There are no filling defects identified in main, lobar, or segmental pulmonary branches to suggest pulmonary embolus. Heart: The heart is normal in size and there is a small pericardial effusion. Lungs and pleural spaces: There is no airspace consolidation or pleural effusion. Bibasilar scarring versus atelectasis is identified. The trachea and central airways are patent. A 2 mm left upper lobe nodule in image #172 is unchanged dating back to 08/26/2016 and is of doubtful significance. No concerning pulmonary lesion is identified. Mediastinum: A prominent high prevascular lymph node on image #227 is unchanged and measures up to 9 mm. Additional prominent prevascular nodes are seen on image #198. Enlarged left internal mammary node on image 193 measures 1.8 x 1.5 cm. Mary Grace: Clear. Axillae: No pathologically enlarged axillary lymph nodes are identified. An indeterminant 9 mm left axillary lymph node seen on image #2 wedge and 33 has not significantly changed from previous. Upper abdomen: Partially visualized upper abdominal viscera is within normal limits. Skeletal structures: The skeletal structures are osteopenic. No lytic or blastic bony lesions are seen. Soft tissues: The left breast is surgically absent. IMPRESSION: 1. There is no evidence of pulmonary embolus in the main, lobar, or segmental pulmonary arteries. 2. There is no airspace consolidation or pleural effusion. 3. Prominent left axillary, mediastinal, and left internal mammary lymph nodes are similar to 01/20/2018 and consistent with the patient's known history of metastatic disease. Electronically signed by: Lamonte Pena M.D. 02/11/2018 8:22 PM Dictated Date/Time: 02/11/2018 8:15 PM
[2018-02-11] MEDS ORDERED: ONDANSETRON INJ 2 MG/ML 2 ML VIAL ONE (20:28)
--- NOTE | 2018-02-11 20:38 | DIAGNOSTIC IMAGING REPORT ---
CT SCAN OF THE ABDOMEN AND PELVIS WITH IV CONTRAST CLINICAL HISTORY: Generalized abdominal pain. History of metastatic breast cancer. COMPARISON STUDY: Abdominal CT dated 01/20/2018. TECHNIQUE: Following the IV administration of 118 cc of Optiray 320, CT scan of the abdomen and pelvis is performed from the lung bases to the proximal femora. Images are reviewed in the axial, sagittal, and coronal planes. IV contrast was administered without complication. A dose lowering technique was utilized adhering to the principles of ALARA. CT DOSE: 782.56 mGy.cm FINDINGS: Lung bases: The heart is normal in size and without pericardial effusion. The tip of a central venous infusion port is noted at the cavoatrial junction. The lung bases are clear noting bibasilar scarring/atelectasis. Liver: The contrast-enhanced liver is normal in size, contour, and attenuation. Fatty infiltration is seen adjacent to falciform ligament. There is no intrahepatic biliary ductal dilatation. The hepatic veins and portal veins are patent. Mild periportal edema is identified. A subcentimeter hypodensity in the right lobe on image #84 is unchanged in previous and likely represents a small cyst. Gallbladder: Unremarkable. Spleen: Normal in size and attenuation. Pancreas: Unremarkable. Adrenal glands: A 1.4 cm left adrenal nodule is unchanged from previous and indeterminant. The right adrenal gland is normal in appearance. Kidneys: The contrast enhanced kidneys are normal in size and without hydronephrosis. The kidneys enhance symmetrically. Abdominal vasculature: The abdominal aorta is normal in course and caliber. Bowel: There is a long segment of wall thickening/edema as well as mucosal hyperemia involving the distal/terminal ileum. This extensive over 20 cm in length. Mild fecalization in the upstream small bowel loops suggests stasis. No bowel obstruction is seen. There is only mild inflammatory change in the surrounding mesentery. Trace interloop fluid is noted. There is no pneumatosis intestinalis or portal venous gas. There is no evidence of fistula or abscess. There is mild colonic fecal retention. The appendix is well-visualized and normal. Peritoneum: There is no intraperitoneal free air or abdominal ascites. There is a fat-containing umbilical hernia. Lymphadenopathy: Prominent mesenteric lymph nodes are likely on a reactive basis. Pelvic viscera: The bladder is decompressed and grossly unremarkable. Uterus and adnexa are normal as visualized. Bilateral ovarian follicles are observed. A small volume of free fluid is seen in the cul-de-sac. Skeletal structures: No lytic or blastic lesions are seen. There is complete bony fusion at the pubic symphysis. Sclerotic change is seen involving the sacroiliac joints, right greater than left. Mild spondylotic change is noted in the lumbar spine. IMPRESSION: 1. Findings are consistent with a long segment of enteritis involving the distal/terminal ileum as detailed above. This is likely on an infectious or inflammatory basis, and this is similar in appearance to the 01/20/2018 examination. Clinical correlation will be required. 2. There is no evidence of bowel obstruction, abscess, or perforation. 3. There is trace interloop fluid. A small volume of free fluid seen in the pelvis. This may be on a reactive basis. 4. Additional findings as above. Electronically signed by: Lamonte Pena M.D. 02/11/2018 8:37 PM Dictated Date/Time: 02/11/2018 8:29 PM
[2018-02-11] MEDS ORDERED: PROM25SU28 PR (21:06)
[2018-02-11 21:26] VITALS: BP 111/63; PULSE 72; O2SAT 99
== END 2018-02-11 21:27 | disposition home or self-care (01) ==
LOC: C.EDB 16:37
DX: R06.02 Shortness of breath (principal); C50.912 Malignant neoplasm of unspecified site of left female breast; R11.2 Nausea with vomiting, unspecified; D61.818 Other pancytopenia; M79.89 Other specified soft tissue disorders; K50.90 Crohn's disease, unspecified, without complications; Z87.891 Personal history of nicotine dependence; Z79.899 Other long term (current) drug therapy; Z88.8 Allergy status to other drugs, medicaments and biological substances

== ENCOUNTER 2018-02-12 14:09 | Inpatient (IN) | payer OTHER ==
[2018-02-12] VITALS (8 sets, daily range): BP systolic 108–134; BP diastolic 68–95; PULSE 65–87; TEMP 36.8–37.6; O2SAT 94–99; Ht 172.7 cm; Wt 77.9 kg
[~2018-02-12] VITALS: Ht 172.7 cm; Wt 77.9 kg
[~2018-02-12 14:09] MED LIST changes: +ATV/1 PO; -CLC100 PO; +FRS/40 PO; +METH5TAB4 PO; -MISCCAP80 PO; -NORT25CA PO; -NRN/100 PO; +OXYC1TAB3 PO; +PRENTAB26 PO; +PROC1TAB5 PO; +PROM25SU28 PR; +RBN/2 PO; +SERT-234 PO; +TRAM-10 PO; -[UNRECOGNIZED DRUG - OTHER] PO
[2018-02-12] MEDS ORDERED: SERTRALINE HCL 100 MG TAB PO ONE (16:09)
[2018-02-12] MEDS ORDERED: ACETAMINOPHEN 325 MG TAB PO PRN (16:15)
[2018-02-12] MEDS ORDERED: ONDANSETRON 8 MG TAB PO PRN (16:15)
[2018-02-12] MEDS ORDERED: PROMETHAZINE HCL 25 MG SUPP PR PRN (16:15)
[2018-02-12] MEDS ORDERED: OXYCODONE HCL IR 5 MG TAB (IMMEDIATE RELEASE) PO PRN (16:15)
[2018-02-12] MEDS ORDERED: TRAMADOL HCL 50 MG TAB PO PRN (16:15)
--- NOTE | 2018-02-12 16:35 | History and Physical ---
History & Physical Date & Time of Service: Feb 12, 2018 at 16:13 Chief Complaint: Generlized Edema,Hemoglobin Of 7.1 Primary Care Physician: Leonidas Slater M.D. History of Present Illness Source: patient, other (Oncologist) 42 y/o F who [facility] generalized edema and low Hb. Pt states she woke up Friday AM with "a little bit" of swelling. She was having abd pain and called her GI doc as her pain was R sided and similar to her Crohn's. She was advised to take prednisone 30mg x1, and then take 20mg for the next 2 days. Her swelling got worse over the next few days. She developed SOB and generalized body pain. "It feels like I am walking on a stress fracture." At this point, she cannot pull her jeans over her calves and even leggings "feel like compression stockings". She has never had swelling like this. She has had difficulty keeping PO down. She felt that she had a yellow appearance. Pt denies bleeding or bruising. She has no prior hx of transfusions. Pt has been on different chemo medications since 08/2017. She was started on carboplatin and gemcitabine in October. She has been on and off of prednisone. She states she used to be on 5-10mg at baseline, but that this was stopped and she had no had steroids until the above regimen was recommended by GI. She told Dr. Hernandez that she had been on prednisone 20mg chronically. She was seen in the ED last night and CT AP was neg at that time. She feels her abd pain is possibly more than last night, but she also had pain medications prior to the exam in the ED last night. She feels her SOB may be " a little worse" than yesterday, but she is not certain. Pt denies fever, chest pain, c/d. At present, she is very thirsty and hungry. Past Medical/Surgical History Breast cancer, active chemo Crohn's Anxiety/depression Social History Alcohol Use: none Drug Use: none Marital Status: Occupational Status: unemployed Immunizations History of Influenza Vaccine: No History of Tetanus Vaccine?: Yes History of Pneumococcal: No History of Hepatitis B Vaccine: Unknown Allergies Coded Allergies: Latex (Verified Allergy, Intermediate, ERRYTHEMA, 02/11/18) Phenazopyridine (Verified Allergy, Intermediate, vomitting, 02/11/18) Adhesives (Unverified Allergy, Unknown, SKIN IRRITATION RASH, 02/11/18) Penicillins (Unverified Allergy, Unknown, SKIN IRRITATION SWELLING VOMITING, 02/11/18) Sulfa Antibiotics (Unverified Allergy, Unknown, SKIN IRRITATION SWELLING VOMITING, 02/11/18) Home Medications Scheduled Balsalazide (Colazal), 2,250 MG PO BIDM Furosemide (Lasix), 40 MG PO DAILY Glycopyrrolate (Glycopyrrolate), 2 MG PO BID Lorazepam (Ativan), 1 MG PO TID Methylphenidate (Ritalin), 5 MG PO BID Multivit/Min/Iron/Fol Ac/Pren ( Vitamin), 1 TAB PO DAILY Pantoprazole (Protonix), 40 MG PO QAM Prochlorperazine Maleate (Compazine), 10 MG PO Q4H Sertraline (Zoloft), 100 MG PO DAILY Scheduled PRN Ondansetron Hcl (Zofran), 8 MG PO PRN PRN for Nausea Oxycodone Immediate Rel Tab (Roxicodone Ir), 5 MG PO Q6H PRN for Pain Oxycodone Ir (Roxicodone Ir), 10 MG PO Q6H PRN for Pain Promethazine Hcl (Phenergan Suppository), 25 MG SD Q6H PRN for Nausea Tramadol (Ultram), 100 MG PO TID PRN for Pain Miscellaneous Medications Prednisone (Prednisone), 20 MG PO Review of Systems Pertinent positives and negatives reviewed in HPI--all others negative Physical Exam General Appearance: WD/WN, no apparent distress Head: atraumatic, + pertinent finding (eyelid swelling and generalized facial swelling) Eyes: normal inspection, sclerae normal Respiratory/Chest: normal breath sounds, no respiratory distress Cardiovascular: regular rate, rhythm, normal peripheral pulses Abdomen/GI: non tender, soft Extremities/Musculoskelatal: no calf tenderness, + swelling (generalized) Neurologic/Psych: alert, oriented x 3 Skin: normal color, warm/dry Diagnostics Laboratory Results Results Past 24 Hours Test 02/12/18 15:31 Range/Units Diagnostic Radiology 02/11/18 CTAP :1. Findings are consistent with a long segment of enteritis involving the distal/terminal ileum as detailed above. This is likely on an infectious or inflammatory basis, and this is similar in appearance to the 01/20/2018 examination. Clinical correlation will be required. 2. There is no evidence of bowel obstruction, abscess, or perforation. 02/11/18 CTA: 1. There is no evidence of pulmonary embolus in the main, lobar, or segmental pulmonary arteries. 2. There is no airspace consolidation or pleural effusion. 3. Prominent left axillary, mediastinal, and left internal mammary lymph nodes are similar to 01/20/2018 and consistent with the patient's known history of metastatic disease. Impression Assessment and Plan 42 y/o F who was a direct [facility] for generalized edema and acute anemia Generalized edema: possibly related to interactions between chemo and steroids Gemcitabine is noted with edema and peripheral edema as common side effects and this may have been worsened with increased steroid dosing Gemcitabine also has capillary leak syndrome listed as a side effect. I discussed with Dr. Hernandez who does not feel pt's swelling is at this level Monitor with lasix Will hold on further imaging at this time, CXR and CTA neg in the ED on 02/11 TSH with very slight elevation at 4.8, unlikely the cause of this edema and should be f/u'd as outpt Albumin is low and with trace protein in urine Anemia/thrombocytopenia: Possibly related to chemo Hemoccult pending 2 units PRBCs ordered, repeat in AM n/v, abd pain: pt with hx of Crohn's CT AP on 02/11 suggests enteritis GI c/s pending Dr. Hernandez has requested that if n/v are persisting over the next several days, that a CT head be done to r/o mets PRP, LFTs WNL Other: Full code, states she has advanced directive Full liquids given recent PO intolerance, ADAT Will hold rx DVT proph given anemia and thrombocytopenia, will hold SCDs until pt able to tolerate better if swelling improves Advanced Directives Existing Advance Directive: Yes Resuscitation Status VTE Prophylaxis Will order VTE Prophylaxis: Yes
[2018-02-12] MEDS ORDERED: FUROSEMIDE INJ 40 MG in SYRINGE 0 ML IV ONE (16:45)
[2018-02-12] MEDS ORDERED: LORAZEPAM 1 MG TAB PO SCH (17:00)
[2018-02-12] MEDS: OXYCODONE HCL IR 5 MG TAB (IMMEDIATE RELEASE) PO PRN (17:02)
[2018-02-12] MEDS: ONDANSETRON INJ 2 MG/ML 2 ML VIAL IV PRN (17:06)
[2018-02-12] MEDS ORDERED: NURSING VERBAL MED ORDER ONE ×3 (17:45→21:15)
[2018-02-12] MEDS: MoRPHine SULFATE 2 MG/ML CARP IV PRN ×2 (18:07→22:28)
[2018-02-12] MEDS: PROCHLORPERAZINE MALEATE 10 MG TAB PO SCH (20:28)
[2018-02-12] MEDS: HYDROmorphone INJ 0.5 MG/0.5 ML SYR IV PRN (20:30)
[2018-02-12] MEDS: METHYLPHENIDATE HCL 10 MG TAB PO SCH (20:50)
[2018-02-12] MEDS: GLYCOPYRROLATE 1 MG TAB PO SCH (20:50)
[2018-02-12] MEDS: LORAZEPAM 1 MG TAB PO SCH (20:50)
[2018-02-13] VITALS (7 sets, daily range): BP systolic 108–125; BP diastolic 56–70; PULSE 68–78; TEMP 36.9–37.2; O2SAT 91–99
[2018-02-13] MEDS: PROCHLORPERAZINE MALEATE 10 MG TAB PO SCH ×6 (00:08→19:37)
[2018-02-13] MEDS: HYDROmorphone INJ 0.5 MG/0.5 ML SYR IV PRN ×4 (00:42→19:45)
[2018-02-13] MEDS: MoRPHine SULFATE 2 MG/ML CARP IV PRN ×3 (04:01→16:05)
[2018-02-13] MEDS: METHYLPHENIDATE HCL 10 MG TAB PO SCH ×2 (08:00→19:35)
[2018-02-13] MEDS: PRENATAL VITAMIN TAB PO SCH (08:00)
[2018-02-13] MEDS: LORAZEPAM 1 MG TAB PO SCH ×3 (08:13→19:36)
[2018-02-13] MEDS: PANTOprazole SOD 40 MG TAB PO SCH (08:14)
[2018-02-13] MEDS: FUROSEMIDE 40 MG TAB PO SCH (08:16)
[2018-02-13] MEDS: GLYCOPYRROLATE 1 MG TAB PO SCH ×2 (08:16→19:38)
[2018-02-13] MEDS: SERTRALINE HCL 100 MG TAB PO SCH (08:16)
[2018-02-13] MEDS: ONDANSETRON INJ 2 MG/ML 2 ML VIAL IV PRN (08:22)
--- NOTE | 2018-02-13 08:40 | Oncology Consultation ---
Oncology/Heme Consultation Date of Consultation: Feb 13, 2018. Attending Physician: Ekta Hector DO Reason for Consultation: History of metastatic breast ca. Presents now pancytopenic and generalized feeling of edema or swelling History of Present Illness Ms. Low is a 42 year old female with a history of triple negative breast ca that dates back to 2011. At that time she was living with [place]. She would have a left breast lumpectomy and sentinl node procedure. She was advised to take adjuvant therapy but was at that time and never received any therapy. Left breast disease would recur in 2013. A left breast mastectomy was done. Records reflect that multicentric disease was found. Once agin she was advised to receive an adjuvant program but di not. She has provided results of previously done BRCA studies that were negative. We first met her while she was with her second child. There was no obvious disease. After deivery of the secod child a PET/CT was done in early 2016 that demonstrated an FDG avid left internal mammary node - only site of uptake. A biopsy would reflect recurrent disease. She was advised to receive AC- T chemotherapy and RT. A prt was placed but the patient did not return until 07/2017. At that time another PET/CT was done that would now demonstrate mulitple arthur areas of uptake (mediastinal and bilateral supraclavicular areas. Needle biopsy requested by Ms. Low further confirmed metatstic disease. PE?CT also reflected increase bowel uptake and she was diagnosed and has been treated by a physician in [place] for granulmatous bowel disease. SHe has now neen treated with single agent Taxol times multiple doses with little change to progression in her disease demonstrated on chest CT 2016. She was then switched to D1, D8 every 21 day Gemcitabine/carboplatin in mid October 2017. She has completed 4 cycles with the last treatment being 02/06. Recent CT's have demonstrated disease response to this therapy. She now presents with the feeling of overwhelming fatigue and fullness in all of her extremities, and facial/central edema. SHe denies any bleeding. She denies any fever or rigors. SHe complains of abdominal pain primarily right lower quadrant abdominal pain. SHe has been advised by the doctor in [place] treating her granulomatous bowel disease to increase her daily prednisone if pain should occur. Her story does seem to vary but she has told me that she has been on some dose of prednisone almost daily since about August - between 10-20 mg a day. Past Medical/Surgical History Medical Problems: (1) Breast cancer Status: Acute (2) Ileitis Status: Acute (3) Leg swelling Status: Acute (4) Nausea & vomiting Status: Acute (5) Pancytopenia Status: Acute (6) SOB (shortness of breath) Status: Acute Surgical Problems: (1) Port-a-cath in place Status: Chronic Social History Smoking Status: Former Smoker Alcohol Use: none Drug Use: none Marital Status: Housing Status: lives with family Occupation Status: unemployed Allergies Coded Allergies: Latex (Verified Allergy, Intermediate, ERRYTHEMA, 02/11/18) Phenazopyridine (Verified Allergy, Intermediate, vomitting, 02/11/18) Adhesives (Unverified Allergy, Unknown, SKIN IRRITATION RASH, 02/11/18) Penicillins (Unverified Allergy, Unknown, SKIN IRRITATION SWELLING VOMITING, 02/11/18) Sulfa Antibiotics (Unverified Allergy, Unknown, SKIN IRRITATION SWELLING VOMITING, 02/11/18) Home Medications Scheduled Balsalazide (Colazal), 2,250 MG PO BIDM Furosemide (Lasix), 40 MG PO DAILY Glycopyrrolate (Glycopyrrolate), 2 MG PO BID Lorazepam (Ativan), 1 MG PO TID Methylphenidate (Ritalin), 5 MG PO BID Multivit/Min/Iron/Fol Ac/Pren ( Vitamin), 1 TAB PO DAILY Pantoprazole (Protonix), 40 MG PO QAM Prochlorperazine Maleate (Compazine), 10 MG PO Q4H Sertraline (Zoloft), 100 MG PO DAILY Scheduled PRN Ondansetron Hcl (Zofran), 8 MG PO PRN PRN for Nausea Oxycodone Immediate Rel Tab (Roxicodone Ir), 5 MG PO Q6H PRN for Pain Oxycodone Ir (Roxicodone Ir), 10 MG PO Q6H PRN for Pain Promethazine Hcl (Phenergan Suppository), 25 MG NV Q6H PRN for Nausea Tramadol (Ultram), 100 MG PO TID PRN for Pain Miscellaneous Medications Prednisone (Prednisone), 20 MG PO Current Inpatient Medications Current Inpatient Medications Medications (Trade) Dose Ordered Sig/Katherine Route Start Time Stop Time Status Last Admin Dose Admin Acetaminophen (Tylenol Tab) 650 mg Q4H PRN PO 02/12/18 16:15 03/14/18 16:14 Magnesium Hydroxide (Milk Of Magnesia Susp) 30 ml Q6H PRN PO 02/12/18 16:15 03/14/18 16:14 Ondansetron HCl (Zofran Inj) 4 mg Q6H PRN IV 02/12/18 16:15 03/14/18 16:14 02/12/18 17:06 4 MG Furosemide (Lasix Tab) 40 mg DAILY PO 02/13/18 08:00 03/15/18 07:59 02/13/18 08:16 40 MG Lorazepam (Ativan Tab) 1 mg TID PO 02/12/18 20:00 03/14/18 19:59 02/13/18 08:13 1 MG Methylphenidate HCl (Ritalin Tab) 5 mg BID PO 02/12/18 20:00 02/26/18 19:59 Prenat Multivit/ [employer]/Iron/Folic Ac ( Vitamin Tab) 1 tab DAILY PO 02/13/18 08:00 03/15/18 07:59 Ondansetron HCl (Zofran Tab) 8 mg PRN PRN PO 02/12/18 16:15 03/14/18 16:14 02/12/18 22:50 8 MG Oxycodone HCl (Roxicodone Immediate Rel Tab) 5 mg Q6H PRN PO 02/12/18 16:15 02/26/18 16:14 Oxycodone HCl (Roxicodone Immediate Rel Tab) 10 mg Q6H PRN PO 02/12/18 16:15 02/26/18 16:14 02/12/18 17:02 10 MG Pantoprazole Sodium (Protonix Tab) 40 mg QAM PO 02/13/18 08:00 03/15/18 07:59 02/13/18 08:14 40 MG Prochlorperazine Maleate (Compazine Tab) 10 mg Q4H PO 02/12/18 20:00 03/14/18 19:59 02/13/18 08:16 10 MG Promethazine HCl (Phenergan Supp) 25 mg Q6H PRN NV 02/12/18 16:15 03/14/18 16:14 Sertraline HCl (Zoloft Tab) 100 mg DAILY PO 02/13/18 08:00 03/15/18 07:59 02/13/18 08:16 100 MG Tramadol HCl (Ultram Tab) 100 mg TID PRN PO 02/12/18 16:15 03/14/18 16:14 Miscellaneous Information (Order Awaiting Action) 1 ea QS N/A 02/13/18 00:00 03/15/18 00:00 Glycopyrrolate (Robinul Tab) 2 mg BID PO 02/12/18 20:00 03/14/18 19:59 02/13/18 08:16 2 MG Heparin Sodium (Porcine) (Heparin 100 Unit/ml 5ml Flush) 5 ml PRN PRN IV 02/12/18 17:45 03/14/18 17:44 02/13/18 04:00 5 ML Morphine Sulfate (MoRPHine SULFATE INJ) 1 mg Q4H PRN IV 02/12/18 18:00 02/26/18 17:59 02/13/18 04:01 1 MG Hydromorphone HCl (Dilaudid Inj) 0.5 mg Q4H PRN IV 02/12/18 20:00 02/26/18 19:59 02/13/18 00:42 0.5 MG Ondansetron HCl (Zofran Inj) 4 mg Q4H PRN IV 02/12/18 21:45 03/14/18 21:44 Review of Systems Constitutional: Negative for weight loss, night sweats, or fever. Complains of weight gain. Eyes: Negative for event change of vision ENT: Negative for epistaxis, nasal discharge, sore throat, or deafness Cardiovascular: Negative for chest pain, palpitations, dizziness, diaphoresis Respiratory: Negative for ,hemoptysis, or purulent cough, She does complain of dyspnea with any exertion as she takes care of her children. Gastrointestinal: Negative for diarrhea, hematemesis, melena, dyspepsia. Does complain of decreased appetite and nause and emesis over the past week. Integumentary (skin): Negative for rash or jaundice discoloration Genitourinary: Negative for urinary frequency, hematuria, or dysuria Neurological: Negative for weakness, seizure activity, headache, or dizziness Lymphatic/Hematologic: Negative for petechiae, bleeding or new adenopathy Musculoskeletal: Negative for new joint or back pain. Again compalins of generalized fullness feeling Allergic/Immunologic: Negative for unusual rash or pruritis. Physical Exam Date Time Temp Pulse Resp B/P (MAP) Pulse Ox O2 Delivery O2 Flow Rate FiO2 02/13/18 07:50 37.2 78 14 124/67 (86) 94 Room Air 02/13/18 04:47 36.9 78 16 108/56 (73) 91 Room Air 02/13/18 02:30 Room Air 02/12/18 23:59 36.9 75 18 109/68 (82) 94 Room Air 02/12/18 21:30 37.2 70 18 119/75 96 02/12/18 21:00 36.8 65 18 117/74 97 02/12/18 20:15 36.9 76 18 120/73 99 02/12/18 20:00 37.2 84 16 108/73 94 02/12/18 19:57 37.2 82 16 108/83 94 02/12/18 18:00 37.6 86 14 116/71 97 02/12/18 17:30 37.2 87 14 134/95 Constitutional: vitals are stable. EMotional and quite upset/teary. Eyes: Eyes are BINU EOMI without conjuctival erythema or icterus. Mild but noticeable eyelid edema bilaterally. ENT: External examination was negative for masses. Neck: Negative for palpable thyromegaly. Does have a palpable arthur area left supraclaviclaur area. Respiratory: Lung sounds were generally clear bilaterally Cardiovascular: Heart was RRR without significant murmur, gallop or rubs Gastrointestinal: No palpable hepatic or splenomegaly. The abdomen was tender particularly in the right mid to lower quadrant. Lymphatic system: there was no palpable peripheral lymphadenopathy however I do feel probable nodes left supraclaviicular area. Musculoskeletal System: The musculoskeletal system seemed concordant with age. Skin: The skin was negative for jaundice. DIlated veins were not seen over chest wall. Neurologic exam: The exam was negative for any focal findings. Deep tendon reflexes were equal and symmetrical. Psychiatric exam: Was essentially negative with normal mood and effect. Breast exam: not done today but recent exams done in clinic were negative for any evidence of recurrence. Extremities: Negative for any pitting or palpable edema Laboratory Results Last 24 Hours Test 02/12/18 13:25 02/13/18 04:44 Total Creatine Kinase 116 U/L Assessment & Plan Metastatic triple negative breast cancer. Recently treated with gemcitabine/ carboplatin with recent CT's demonstrating disease response. Presents now with a variety of symptoms including abdominal pain, a feeling of generalized skin/ extremity and central fullness and pancytopenia. SHe also has a history of granulomatous bowel disease treated with daily prednisone primarily guided by her own judgement on dosing. The cytopenias are likely related to her chemithherapy and willneed supported with red cell and platelet transfusions for now. Would like to keep HB above 8 gm/dl and platelets above 15-20K. Recent chest and abdominal CT's essentially stable in regards to known adenopathy, but do show changes involving bowel that I suspect are related to underlying granulomatous bowel disease. I suspect the generalized fulness feeling that she has (as well as eyelid edema etc.) is related to the prednisone. The feeling of fullness, weakness, discomfort has been likely exacerbated by being so anemic recently. She reminds me of having a fullness feeling around her abdomen and fingers (has not been able to wear rings) in October 2017. A thought of capillary leak syndrome due to chemotherapy has been raised. I really doubt her current symptoms are capillary leak. That entity invariably is much more desperate with pulmonary edema, hypotension, etc. Finally she understandably is depressed and very emotional. She does have a history of depression. Would ask for a GI consultation for thoughts on managing her granulomatous bowel symptoms and eventually moving away from prednisone. Would also ask for psychiatric assessment and out patient followup to help with depression. Would also ask for associate dean involvement to asses and help with any support that might be available for her as an outpatient. Thank you - reviewed with Dr. Hector yesterday.
--- NOTE | 2018-02-13 09:36 | Gastrointestinal Consultation ---
Gastrointestinal Consultation Date of Consultation: Feb 13, 2018 Attending Physician: Dr. Hector Consulting Physician: Dr. Naidu/MADI Briseno Reason for Consultation: Crohn's disease and abdominal pain History of Present Illness Patient is a 42 year old female with a history of Crohn's disease and breast cancer currently being followed by Dr. Dias of [facility] and Dr. Fish of [facility] as well as Dr. Hernandez locally for oncology management. Patient reports that she has been doing fairly well in regard to her Crohn's disease but states she has been having increased disease flares since being started on a new chemotherapy agent in October of 2017. Due to her immunocompromised state, she has been managed with Colazal and PRN short courses of Prednisone. States there was consideration of adding Entyvio but her insurance would not approve the medication. Patient did have her last chemotherapy infusion on February 06. Since that time, she has been having increased symptoms of irregular bowel movements as well as abdominal pain. She had contacted Dr. Dias's office and was instructed to take Prednisone which she did take for 3 days at 30 mg on day 1 and 20 mg on days 2 and 3. In doing so, she did not have improvement and had therefore presented to the ER at [facility] on February 11. A CT a/p was performed and demonstrated ileitis with upstream fecal burden without evidence of clear obstruction. She was also pancytopenic at that time and demonstrated a hemoglobin of 7.1. Due to this, Dr. Hernandez did order her a blood transfusion yesterday which she did have at [facility]. While there, the patient reported increasing abdominal pain and she was subsequently directly admitted to the hospital. At present, she describes RLQ pain that is sharp and stabbing in nature that radiates across her periumbilical region and LLQ. Pain is rated 3/10 at present after receiving a dose of IV Dilaudid. Associated symptoms include alternating diarrhea and constipation, nausea but no vomiting at present and abdominal bloating. She denies any fever or chills, chest pain, palpitations, shortness of breath, or syncope. No laboratory testing is available to review this morning. Past Medical/Surgical History Medical Problems: (1) Breast cancer Status: Acute (2) Ileitis Status: Acute (3) Leg swelling Status: Acute (4) Nausea & vomiting Status: Acute (5) Pancytopenia Status: Acute (6) SOB (shortness of breath) Status: Acute Surgical Problems: (1) Port-a-cath in place Status: Chronic Past Medical History: 1. Crohn's ileitis 2. Breast cancer 3. Anxiety/Depression Past Surgical History: A-port placement Family History Negative for GI malignancy or IBD Social History Smoking Status: Former Smoker Alcohol Use: none Drug Use: none Marital Status: Housing Status: lives with family Occupation Status: unemployed Allergies Coded Allergies: Latex (Verified Allergy, Intermediate, ERRYTHEMA, 02/11/18) Phenazopyridine (Verified Allergy, Intermediate, vomitting, 02/11/18) Adhesives (Unverified Allergy, Unknown, SKIN IRRITATION RASH, 02/11/18) Penicillins (Unverified Allergy, Unknown, SKIN IRRITATION SWELLING VOMITING, 02/11/18) Sulfa Antibiotics (Unverified Allergy, Unknown, SKIN IRRITATION SWELLING VOMITING, 02/11/18) Current Medications Home Meds and Scripts Medications Dose Route/Sig Max Daily Dose Days Date Category Dose Instructions Roxicodone Ir (Oxycodone HCl) 5 Mg Tab 5 Mg PO Q6H PRN 7 02/11/18 Rx Phenergan Suppository (Promethazine HCl) 25 Mg Supp 25 Mg WA Q6H PRN 02/11/18 Rx Compazine (Prochlorperazine Maleate) 10 Mg Tab 10 Mg PO Q4H 02/11/18 Reported NAUSEA/VOMITING Roxicodone Ir (Oxycodone HCl) 5 Mg Tab 10 Mg PO Q6H PRN 02/11/18 Reported Ativan (Lorazepam) 1 Mg Tab 1 Mg PO TID 02/11/18 Reported Ultram (Tramadol HCl) 50 Mg Tab 100 Mg PO TID PRN 02/11/18 Reported Zoloft (Sertraline HCl) 100 Mg Tab 100 Mg PO DAILY 02/11/18 Reported Vitamin (Prenat Multivit/[place]/Iron/Folic Ac) Tab 1 Tab PO DAILY 02/11/18 Reported Prednisone 20 Mg Tab 20 Mg PO 02/11/18 Reported pt takes in case of flare up Glycopyrrolate 2 Mg Tab 2 Mg PO BID 02/11/18 Reported Lasix (Furosemide) 40 Mg Tab 40 Mg PO DAILY 02/11/18 Reported Ritalin (Methylphenidate HCl) 5 Mg Tab 5 Mg PO BID 02/11/18 Reported Protonix (Pantoprazole Sodium) 40 Mg Tab 40 Mg PO QAM 01/13/17 Reported Colazal (Balsalazide) 750 Mg Cap 2,250 Mg PO BIDM 01/13/17 Reported Zofran (Ondansetron HCl) 8 Mg Tab 8 Mg PO PRN PRN 01/13/17 Reported Review of Systems Constitutional: + see HPI Eyes: No eye pain, No redness ENT: No problem reported Respiratory: + see HPI Cardiac: + see HPI Musculoskeletal: + swelling Female : No problem reported Neuro: No problem reported Psych: No problem reported Endo: No problem reported Skin: No problem reported Physical Exam Date Time Temp Pulse Resp B/P (MAP) Pulse Ox O2 Delivery O2 Flow Rate FiO2 02/13/18 08:43 94 Room Air 02/13/18 07:50 37.2 78 14 124/67 (86) 94 Room Air 02/13/18 04:47 36.9 78 16 108/56 (73) 91 Room Air 02/13/18 02:30 Room Air 02/12/18 23:59 36.9 75 18 109/68 (82) 94 Room Air 02/12/18 21:30 37.2 70 18 119/75 96 02/12/18 21:00 36.8 65 18 117/74 97 02/12/18 20:15 36.9 76 18 120/73 99 02/12/18 20:00 37.2 84 16 108/73 94 02/12/18 19:57 37.2 82 16 108/83 94 02/12/18 18:00 37.6 86 14 116/71 97 02/12/18 17:30 37.2 87 14 134/95 General Appearance: WD/WN, no apparent distress Eyes: EOMI ENT: hearing grossly normal Neck: supple Respiratory/Chest: lungs clear, normal breath sounds, no respiratory distress Cardiovascular: regular rate, rhythm, no gallop, no murmur Abdomen: soft, + abnormal bowel sounds (hyperactive), + distended, + tenderness (moderate right>left) Extremities: normal range of motion Neurologic/Psych: alert, normal mood/affect, oriented x 3 Skin: no jaundice, warm/dry Laboratory Results Last 24 Hours Test 02/12/18 13:25 02/13/18 09:03 Total Creatine Kinase 116 U/L Impression Patient is a 42 year old female with a history of Crohn's disease and breast cancer on chemotherapy admitted with worsened RLQ abdominal pain, distention and abnormal CT imaging suggestive of ileitis (inflammatory vs infection although less likely infectious). Plan 1. CBC, CMP, amylase, lipase, CRP. 2. Stool studies to exclude infectious etiology. Will also order fecal calprotectin. 3. Start Budesonide 9mg daily. First dose now. Attempt to avoid Prednisone if possible due to immunosuppression and side effects. 4. Start Pentasa 1g QID. First dose now. 5. Remain on clear liquid diet for now and discussed at great length avoidance of opioid analgesics due to the risk of decreased motility and obstruction. 6. Patient will follow up with Dr. Dias and Dr. Pimentel upon discharge to discuss ongoing Crohn's management and possible initiation of Entyvio. We will continue to follow her clinical course and make further recommendations as appropriate. [facility] GI service is superintendent car construction over the weekend if any acute issues arise. If you have any questions or concerns, please do not hesitate to contact us. Agree with MADI Briseno as above Abd: Soft, NT, ND, +BS Continue current therapy with Budesonide and Pentasa Continue supportive care
[2018-02-13 09:37] LABS: HEMATOCRIT 25.1 % (37-47); HEMOGLOBIN 8.6 g/dL (12.0-16.0); MEAN CELL VOLUME 87.5 fL (80-100); MEAN CORPUSCULAR HGB CONC 34.3 g/dl (32-36); PLATELET COUNT 18 K/uL (130-400); RED CELL DISTRIBUTION WIDTH CV 17.9 % (11.5-14.5); RED CELL DISTRIBUTION WIDTH SD 56.7 fL (36.4-46.3); WHITE BLOOD COUNT 2.28 K/uL (4.8-10.8)
[2018-02-13 09:45] LABS: EOS % 0.9 %; EOS ABS # 0.02 K/uL (0-0.5); LYMPH % 30.3 %; LYMPH ABS # 0.69 K/uL (1.2-3.4); MONO % 0.9 %; MONO ABS # 0.02 K/uL (0.11-0.59); NEUT % 67.9 %; NEUT ABS # 1.55 K/uL (1.4-6.5)
[2018-02-13 10:15] LABS: ALBUMIN 2.6 gm/dl (3.4-5.0); CALCIUM 8.1 mg/dl (8.5-10.1); CREATININE 0.91 mg/dl (0.60-1.20)
[2018-02-13] MEDS: MAGNESIUM HYDROXIDE SUSP 30 ML UDC PO PRN (10:15)
[2018-02-13 10:18] LABS: TOTAL PROTEIN 5.5 gm/dl (6.4-8.2)
[2018-02-13] MEDS: MESALAMINE 250 MG CAPCR PO SCH ×4 (11:27→19:38)
[2018-02-13] MEDS: BUDESONIDE EC 3 MG CAP PO SCH (11:27)
--- NOTE | 2018-02-13 12:24 | Hospitalist Progress Note ---
Hospitalist Progress Note Date of Service Feb 13, 2018. (Gwendolyn Moreno ., RANDEEC) Subjective Pt evaluation today including: conversation w/ patient, physical exam, chart review, lab review, review of studies, review of inpatient medication list PO Intake: Tolerating full liquids Voiding: no voiding problems The patient reports feeling about the same as yesterday. She states her abdominal pain is about the same and has not really improved. She complain of pain mostly in the RLQ, although it is starting to radiate more superiorly and towards the left. She states it is sharp and burning at times and is worse with movement. She currently denies nausea and vomiting and states that she tolerated her breakfast without issues. She denies SOB at rest but does complain of dyspnea with any minimal exertion, which is unusual. She states her edema is unchanged. She still feels weak and fatigued after blood transfusions. She also reports a non-productive cough. The patient denies fevers, chills, sweats, chest pain, palpitations, claudication, wheezing, nausea , vomiting, dysuria, hematuria, urinary retention, paralysis, weakness, numbness and tingling. Additional Comments: See HPI for pertinent positives and negatives. All other systems reviewed and negative. (Gwendolyn Moreno ., PA-C) Objective Vital Signs Date Time Temp Pulse Resp B/P (MAP) Pulse Ox O2 Delivery O2 Flow Rate FiO2 02/13/18 08:43 94 Room Air 02/13/18 08:00 94 Room Air 02/13/18 07:50 37.2 78 14 124/67 (86) 94 Room Air 02/13/18 04:47 36.9 78 16 108/56 (73) 91 Room Air 02/13/18 02:30 Room Air 02/12/18 23:59 36.9 75 18 109/68 (82) 94 Room Air 02/12/18 21:30 37.2 70 18 119/75 96 02/12/18 21:00 36.8 65 18 117/74 97 02/12/18 20:15 36.9 76 18 120/73 99 02/12/18 20:00 37.2 84 16 108/73 94 02/12/18 19:57 37.2 82 16 108/83 94 02/12/18 18:00 37.6 86 14 116/71 97 02/12/18 17:30 37.2 87 14 134/95 (Gwendolyn Moreno ., PA-C) Physical Exam Notes: General appearance: Well-developed, well-nourished, no apparent distress Head: Normocephalic, atraumatic Eyes: Normal inspection, PERRL, EOMI ENT: Normal ENT inspection, hearing grossly normal, pharynx normal Neck: Supple, no JVD, trachea midline Respiratory/Chest: +Mediport right chest. Lungs clear to auscultation, normal breath sounds, no respiratory distress Cardiovascular: Regular rate & rhythm, no gallop, no murmur Abdomen/GI: +RLQ markedly TTP. RUQ, epigastrium, and suprapubic areas more mildly TTP. Normal bowel sounds, soft Extremities/Musculoskeletal: +Non-pitting edema. Normal inspection, no calf tenderness Neurological/Psych: Alert, normal mood/affect, oriented x 3 Skin: Normal color, warm/dry, no rash (Gwendolyn Moreno ., PA-C) Laboratory Results Last 24 Hours Test 02/12/18 13:25 02/13/18 09:03 02/13/18 09:07 02/13/18 11:15 Total Creatine Kinase 116 U/L White Blood Count 2.28 K/uL Red Blood Count 2.87 M/uL Hemoglobin 8.6 g/dL Hematocrit 25.1 % Mean Corpuscular Volume 87.5 fL Mean Corpuscular Hemoglobin 30.0 pg Mean Corpuscular Hemoglobin Concent 34.3 g/dl Platelet Count 18 K/uL Neutrophils (%) (Auto) 67.9 % Lymphocytes (%) (Auto) 30.3 % Monocytes (%) (Auto) 0.9 % Eosinophils (%) (Auto) 0.9 % Basophils (%) (Auto) 0.0 % Neutrophils # (Auto) 1.55 K/uL Lymphocytes # (Auto) 0.69 K/uL Monocytes # (Auto) 0.02 K/uL Eosinophils # (Auto) 0.02 K/uL Basophils # (Auto) 0.00 K/uL RDW Standard Deviation 56.7 fL RDW Coefficient of Variation 17.9 % Immature Granulocyte % (Auto) 0.0 % Immature Granulocyte # (Auto) 0.00 K/uL Red Blood Cell Morphology Unremarkable Sodium Level 137 mmol/L Potassium Level 4.0 mmol/L Chloride Level 104 mmol/L Carbon Dioxide Level 28 mmol/L Anion Gap 5.0 mmol/L Blood Urea Nitrogen 16 mg/dl Creatinine 0.91 mg/dl Est Creatinine Clear Calc Drug Dose 88.7 ml/min Estimated GFR () 90.2 Estimated GFR (Non- 77.8 BUN/Creatinine Ratio 17.9 Random Glucose 101 mg/dl Calcium Level 8.1 mg/dl Total Bilirubin 0.8 mg/dl Aspartate Amino Transf (AST/SGOT) 34 U/L Alanine Aminotransferase (ALT/SGPT) 19 U/L Alkaline Phosphatase 65 U/L C-Reactive Protein 1.46 mg/dl Total Protein 5.5 gm/dl Albumin 2.6 gm/dl Globulin 2.9 gm/dl Albumin/Globulin Ratio 0.9 Amylase Level 21 U/L Lipase 77 U/L Stool Occult Blood NEGATIVE (Gwendolyn Moreno ., KP) Assessment and Plan 42 y/o female with a history of breast cancer currently on chemo, Crohn's disease, anxiety and depression, PUD and GERD who presents for direct admission from [facility] with generalized non-pitting edema and acute anemia. Generalized edema--ongoing -Admit to med/surg -Possibly related to chemo and/or steroids, however pt states that she has been on her current chemo regimen since October w/o issue and has been on steroids since 2016 w/o edema -Continue Lasix 40 mg PO qd. Pt does report improved urine output on this, had decreased urinary output last 3 weeks prior to starting Lasix on Friday -Monitor I's & O's Acute anemia, thrombocytopenia -Hgb 8.6 on 02/13, up from 7.4 on admission -PLT unchanged at 18k -Received 2 units PRBCs 02/12 -Heme/onc consulted, appreciate recs: Would keep Hgb over 8 and PLT over 15- 20K. -Fecal occult blood negative N/V, abdominal pain, h/o Crohn's--stable. Abdominal pain unchanged but no longer with N/V, tolerating diet -CT abdomen/pelvis 02/11 w/enteritis, stable from 01/20/18 study -GI consulted, appreciate recs: Check stool studies and fecal calprotectin. Check CBC, CMP, CRP, amylase, lipase. Will start budesonide 9 mg PO qd and Pentasa 500 mg PO QID. Continue liquid diet and would avoid opioids when possible. -CRP elevated, amylase and lipase WNL -Budesonide and mesalamine as above -Pt's home Colazal non-formulary -Stool studies pending -Continue full liquid diet -Continue oxycodone, tramadol, Dilaudid prn pain -Zofran, Compazine prn nausea Breast cancer on chemo -Oncology following as above Anxiety/depression -Continue Ativan 1 mg PO TID, Zoloft 100 mg PO qd PUD/GERD -Continue Protonix, Robinol 2 mg PO BID DVT prophylaxis -Chemical ppx held due to thrombocytopenia, acute anemia -SCDs when pt can tolerate Code Status -Level I, FULL RESUSCITATION STATUS (Gwendolyn Moreno ., PA-C) Supervising Note Dr. Jiménez I performed a history and physical examination on the patient. I reviewed above note and agree with it. I discussed plan with APC and patient. During my face to face encounter with the patient, I answered all of the patient's questions. will continue to check her cbc in am to monitor her hemoglobin and platelets. (Don Jiménez M.D.)
[2018-02-13] MEDS ORDERED: FUROSEMIDE INJ 20 MG in SYRINGE 0 ML IV ONE (19:45)
[2018-02-14] VITALS (9 sets, daily range): BP systolic 111–150; BP diastolic 67–85; PULSE 60–75; TEMP 36.5–37; O2SAT 94–100
[2018-02-14] MEDS: PROCHLORPERAZINE MALEATE 10 MG TAB PO SCH ×7 (01:04→23:47)
[2018-02-14] MEDS: HYDROmorphone INJ 0.5 MG/0.5 ML SYR IV PRN ×4 (01:14→19:49)
[2018-02-14] MEDS: MoRPHine SULFATE 2 MG/ML CARP IV PRN ×4 (04:00→22:27)
[2018-02-14 08:19] LABS: CALCIUM 7.9 mg/dl (8.5-10.1); CREATININE 0.89 mg/dl (0.60-1.20); POTASSIUM 3.8 mmol/L (3.5-5.1)
[2018-02-14 08:23] LABS: HEMATOCRIT 23.4 % (37-47); MEAN CELL VOLUME 87.3 fL (80-100); MEAN CORPUSCULAR HEMOGLOBIN 29.9 pg (25-34); MEAN CORPUSCULAR HGB CONC 34.2 g/dl (32-36); PLATELET COUNT 6 K/uL (130-400); RED CELL DISTRIBUTION WIDTH CV 17.1 % (11.5-14.5); RED CELL DISTRIBUTION WIDTH SD 54.3 fL (36.4-46.3); WHITE BLOOD COUNT 2.31 K/uL (4.8-10.8)
[2018-02-14] MEDS: MAGNESIUM HYDROXIDE SUSP 30 ML UDC PO PRN ×2 (08:35→14:20)
[2018-02-14] MEDS: LORAZEPAM 1 MG TAB PO SCH ×3 (08:37→19:49)
[2018-02-14] MEDS: SERTRALINE HCL 100 MG TAB PO SCH (08:38)
[2018-02-14] MEDS: PANTOprazole SOD 40 MG TAB PO SCH (08:38)
[2018-02-14] MEDS: PRENATAL VITAMIN TAB PO SCH (08:38)
[2018-02-14] MEDS: METHYLPHENIDATE HCL 10 MG TAB PO SCH ×2 (08:38→19:50)
[2018-02-14] MEDS: MESALAMINE 250 MG CAPCR PO SCH ×4 (08:39→19:50)
[2018-02-14] MEDS: BUDESONIDE EC 3 MG CAP PO SCH (08:40)
[2018-02-14] MEDS: FUROSEMIDE 40 MG TAB PO SCH (08:40)
[2018-02-14] MEDS: GLYCOPYRROLATE 1 MG TAB PO SCH ×2 (08:41→19:51)
[2018-02-14] MEDS ORDERED: SODIUM CHLORIDE 0.65% NA SOLN 45 ML (OCEAN) ONE (08:43)
--- NOTE | 2018-02-14 09:10 | Gastroenterology Progress Note ---
Progress Note Date of Service: Feb 14, 2018 Subjective Pt evaluation today including: conversation w/ patient, physical exam Patient notes having persistent right-sided abdominal discomfort. She is typically seen by Dr. yeny Sepulveda for her inflammatory bowel disease. She was evaluated by Dr. Naidu and Ms. Mclean yesterday as she was admitted for complications related to her chemotherapy. She was started on budesonide but does not note any significant change at this time. She denies having any nausea or vomiting at the present time. She is passing gas but notes only minimal amounts of stool at this point in time. Review of Systems Constitutional: No fever, No sweats Respiratory: No cough, No wheezing, No dyspnea at rest Cardiac: + problem reported, No chest pain, No PND, No palpitations Medications Current Inpatient Medications Medications (Trade) Dose Ordered Sig/Katherine Route Start Time Stop Time Status Last Admin Dose Admin Acetaminophen (Tylenol Tab) 650 mg Q4H PRN PO 02/12/18 16:15 03/14/18 16:14 Magnesium Hydroxide (Milk Of Magnesia Susp) 30 ml Q6H PRN PO 02/12/18 16:15 03/14/18 16:14 02/14/18 08:35 30 ML Ondansetron HCl (Zofran Inj) 4 mg Q6H PRN IV 02/12/18 16:15 03/14/18 16:14 02/13/18 08:22 4 MG Furosemide (Lasix Tab) 40 mg DAILY PO 02/13/18 08:00 03/15/18 07:59 02/14/18 08:40 40 MG Lorazepam (Ativan Tab) 1 mg TID PO 02/12/18 20:00 03/14/18 19:59 02/14/18 08:37 1 MG Methylphenidate HCl (Ritalin Tab) 5 mg BID PO 02/12/18 20:00 02/26/18 19:59 Prenat Multivit/ [place]/Iron/Folic Ac ( Vitamin Tab) 1 tab DAILY PO 02/13/18 08:00 03/15/18 07:59 Ondansetron HCl (Zofran Tab) 8 mg PRN PRN PO 02/12/18 16:15 03/14/18 16:14 02/12/18 22:50 8 MG Oxycodone HCl (Roxicodone Immediate Rel Tab) 5 mg Q6H PRN PO 02/12/18 16:15 02/26/18 16:14 Oxycodone HCl (Roxicodone Immediate Rel Tab) 10 mg Q6H PRN PO 02/12/18 16:15 02/26/18 16:14 02/12/18 17:02 10 MG Pantoprazole Sodium (Protonix Tab) 40 mg QAM PO 02/13/18 08:00 03/15/18 07:59 02/14/18 08:38 40 MG Prochlorperazine Maleate (Compazine Tab) 10 mg Q4H PO 02/12/18 20:00 03/14/18 19:59 02/14/18 08:41 10 MG Promethazine HCl (Phenergan Supp) 25 mg Q6H PRN NE 02/12/18 16:15 03/14/18 16:14 Sertraline HCl (Zoloft Tab) 100 mg DAILY PO 02/13/18 08:00 03/15/18 07:59 02/14/18 08:38 100 MG Tramadol HCl (Ultram Tab) 100 mg TID PRN PO 02/12/18 16:15 03/14/18 16:14 Miscellaneous Information (Order Awaiting Action) 1 ea QS N/A 02/13/18 00:00 03/15/18 00:00 Glycopyrrolate (Robinul Tab) 2 mg BID PO 02/12/18 20:00 03/14/18 19:59 02/14/18 08:41 2 MG Heparin Sodium (Porcine) (Heparin 100 Unit/ml 5ml Flush) 5 ml PRN PRN IV 02/12/18 17:45 03/14/18 17:44 02/14/18 08:30 5 ML Morphine Sulfate (MoRPHine SULFATE INJ) 1 mg Q4H PRN IV 02/12/18 18:00 02/26/18 17:59 02/14/18 04:00 1 MG Hydromorphone HCl (Dilaudid Inj) 0.5 mg Q4H PRN IV 02/12/18 20:00 02/26/18 19:59 02/14/18 08:31 0.5 MG Ondansetron HCl (Zofran Inj) 4 mg Q4H PRN IV 02/12/18 21:45 03/14/18 21:44 Budesonide (Entocort EC Cap) 9 mg QAM PO 02/13/18 10:20 03/15/18 10:19 02/14/18 08:40 9 MG Mesalamine (Pentasa Controlled Rel Cap) 1,000 mg QID PO 02/13/18 17:00 03/15/18 09:14 02/14/18 08:39 1,000 MG Objective Vital Signs Date Time Temp Pulse Resp B/P (MAP) Pulse Ox O2 Delivery O2 Flow Rate FiO2 02/14/18 07:31 36.7 75 18 133/75 (94) 94 Room Air 02/14/18 04:00 36.9 70 18 111/67 (82) 95 Room Air 02/14/18 00:30 Room Air 02/14/18 00:00 36.5 74 18 144/85 (104) 97 Room Air 02/13/18 19:31 37.0 68 18 115/70 (85) 96 Room Air 02/13/18 16:00 99 Room Air 02/13/18 15:55 36.9 68 18 125/70 (88) 99 Room Air Physical Exam General Appearance: no apparent distress Neck: no JVD Respiratory/Chest: lungs clear Cardiovascular: no murmur Abdomen: soft, + tenderness (RLQ tender to palpation) Neurologic/Psych: alert Skin: no jaundice Laboratory Results Last 24 Hours Test 02/13/18 09:07 02/13/18 11:15 02/14/18 07:50 Stool Occult Blood NEGATIVE White Blood Count 2.31 K/uL Red Blood Count 2.68 M/uL Hemoglobin 8.0 g/dL Hematocrit 23.4 % Mean Corpuscular Volume 87.3 fL Mean Corpuscular Hemoglobin 29.9 pg Mean Corpuscular Hemoglobin Concent 34.2 g/dl RDW Standard Deviation 54.3 fL RDW Coefficient of Variation 17.1 % Platelet Count 6 K/uL Platelet Estimate SIGNIFIC DECREASED Sodium Level 140 mmol/L Potassium Level 3.8 mmol/L Chloride Level 105 mmol/L Carbon Dioxide Level 30 mmol/L Anion Gap 5.0 mmol/L Blood Urea Nitrogen 16 mg/dl Creatinine 0.89 mg/dl Est Creatinine Clear Calc Drug Dose 90.1 ml/min Estimated GFR () 92.7 Estimated GFR (Non- 79.9 BUN/Creatinine Ratio 17.8 Random Glucose 92 mg/dl Calcium Level 7.9 mg/dl Assessment and Plan She with a history of breast cancer on chemotherapy admitted with abdominal discomfort and pancytopenia. Given the right-sided discomfort and imaging studies Dr. Naidu and transitioned her to budesonide as steroids were thought to be causing further problems with her edema. I would suggest that we continue with this regimen for the present time. If the patient develops any fevers I would then suggest beginning broad-spectrum antibiotics as patients on chemotherapy are at risk for typhlitis. I would also suggest the patient have an acute abdominal series today to ensure that she is not developing small bowel obstruction. Perhaps the patient will be started on MiraLAX 1 time daily to help with bowel movements. Recomendations: Acute abdominal series ordered Contineu with Budesonide Consider broad spectrum antibiotics Defer to hematology with regard to pancytopenia
[2018-02-14] MEDS: ONDANSETRON INJ 2 MG/ML 2 ML VIAL IV PRN ×2 (10:21→19:48)
--- NOTE | 2018-02-14 10:27 | DIAGNOSTIC IMAGING REPORT ---
ABDOMEN 2VIEW W/PA CHEST RTN CLINICAL HISTORY: evaluaton for SBO bowel obstruction COMPARISON STUDY: 02/11/2018 FINDINGS: lungs are clear. Bowel pattern currently is nonobstructive. Mild increase in fecal load throughout the colon. No evidence of bowel distention. . IMPRESSION: 1. Negative chest. 2. Nonobstructive bowel pattern. 3. Mild increase in fecal load throughout the colon. The above report was generated using voice recognition software. It may contain grammatical, syntax or spelling errors. Electronically signed by: Henry Wright M.D. 02/14/2018 10:25 AM Dictated Date/Time: 02/14/2018 10:24 AM
--- NOTE | 2018-02-14 13:57 | Hospitalist Progress Note ---
Hospitalist Progress Note Date of Service Feb 14, 2018. Subjective Pt evaluation today including: conversation w/ patient, physical exam, lab review, review of studies, review of inpatient medication list Voiding: no voiding problems Patient sitting up in bed eating full diet for lunch. Tolerating well. No abdominal pain at present. Notes worse with movement. Mild fecal load noted on x-ray today- will add PRN bowel regimen. Edema seems to be mildly improving. Overall, feels mildly improved since admission. plt 6- transfuse 2 u plt this afternoon. Patient denies any fever, chills, sweats, lightheadedness, dizziness, vision changes, CP, palpitations, SOB, wheezing, cough, nausea, vomiting, diarrhea, urinary symptoms, melena, numbness/tingling, weakness, muscle/joint pain, anxiety/depression, active bleeding, or new skin discoloration/changes. Medications Current Inpatient Medications Medications (Trade) Dose Ordered Sig/Katherine Route Start Time Stop Time Status Last Admin Dose Admin Acetaminophen (Tylenol Tab) 650 mg Q4H PRN PO 02/12/18 16:15 03/14/18 16:14 Magnesium Hydroxide (Milk Of Magnesia Susp) 30 ml Q6H PRN PO 02/12/18 16:15 03/14/18 16:14 02/14/18 08:35 30 ML Ondansetron HCl (Zofran Inj) 4 mg Q6H PRN IV 02/12/18 16:15 03/14/18 16:14 02/13/18 08:22 4 MG Furosemide (Lasix Tab) 40 mg DAILY PO 02/13/18 08:00 03/15/18 07:59 02/14/18 08:40 40 MG Lorazepam (Ativan Tab) 1 mg TID PO 02/12/18 20:00 03/14/18 19:59 02/14/18 08:37 1 MG Methylphenidate HCl (Ritalin Tab) 5 mg BID PO 02/12/18 20:00 02/26/18 19:59 Prenat Multivit/ [place]/Iron/Folic Ac ( Vitamin Tab) 1 tab DAILY PO 02/13/18 08:00 03/15/18 07:59 Ondansetron HCl (Zofran Tab) 8 mg PRN PRN PO 02/12/18 16:15 03/14/18 16:14 02/12/18 22:50 8 MG Oxycodone HCl (Roxicodone Immediate Rel Tab) 5 mg Q6H PRN PO 02/12/18 16:15 02/26/18 16:14 Oxycodone HCl (Roxicodone Immediate Rel Tab) 10 mg Q6H PRN PO 02/12/18 16:15 02/26/18 16:14 02/12/18 17:02 10 MG Pantoprazole Sodium (Protonix Tab) 40 mg QAM PO 02/13/18 08:00 03/15/18 07:59 02/14/18 08:38 40 MG Prochlorperazine Maleate (Compazine Tab) 10 mg Q4H PO 02/12/18 20:00 03/14/18 19:59 02/14/18 12:46 10 MG Promethazine HCl (Phenergan Supp) 25 mg Q6H PRN [place] 02/12/18 16:15 03/14/18 16:14 Sertraline HCl (Zoloft Tab) 100 mg DAILY PO 02/13/18 08:00 03/15/18 07:59 02/14/18 08:38 100 MG Tramadol HCl (Ultram Tab) 100 mg TID PRN PO 02/12/18 16:15 03/14/18 16:14 Miscellaneous Information (Order Awaiting Action) 1 ea QS N/A 02/13/18 00:00 03/15/18 00:00 Glycopyrrolate (Robinul Tab) 2 mg BID PO 02/12/18 20:00 03/14/18 19:59 02/14/18 08:41 2 MG Heparin Sodium (Porcine) (Heparin 100 Unit/ml 5ml Flush) 5 ml PRN PRN IV 02/12/18 17:45 03/14/18 17:44 02/14/18 10:21 5 ML Morphine Sulfate (MoRPHine SULFATE INJ) 1 mg Q4H PRN IV 02/12/18 18:00 02/26/18 17:59 02/14/18 10:22 1 MG Hydromorphone HCl (Dilaudid Inj) 0.5 mg Q4H PRN IV 02/12/18 20:00 02/26/18 19:59 02/14/18 08:31 0.5 MG Ondansetron HCl (Zofran Inj) 4 mg Q4H PRN IV 02/12/18 21:45 03/14/18 21:44 02/14/18 10:21 4 MG Budesonide (Entocort EC Cap) 9 mg QAM PO 02/13/18 10:20 03/15/18 10:19 02/14/18 08:40 9 MG Mesalamine (Pentasa Controlled Rel Cap) 1,000 mg QID PO 02/13/18 17:00 03/15/18 09:14 02/14/18 12:46 1,000 MG Metronidazole 500 mg/Prmx 100 ml @ 100 mls/hr Q8H IV 02/14/18 13:45 02/24/18 13:44 UNV Ciprofloxacin/ Dextrose 400 mg/ Prmx 200 ml @ 100 mls/hr Q12 IV 02/14/18 21:00 02/24/18 20:59 UNV Objective Vital Signs Date Time Temp Pulse Resp B/P (MAP) Pulse Ox O2 Delivery O2 Flow Rate FiO2 02/14/18 11:14 37.0 74 18 118/79 (92) 97 Room Air 02/14/18 08:40 Room Air 02/14/18 07:31 36.7 75 18 133/75 (94) 94 Room Air 02/14/18 04:00 36.9 70 18 111/67 (82) 95 Room Air 02/14/18 00:30 Room Air 02/14/18 00:00 36.5 74 18 144/85 (104) 97 Room Air 02/13/18 19:31 37.0 68 18 115/70 (85) 96 Room Air 02/13/18 16:00 99 Room Air 02/13/18 15:55 36.9 68 18 125/70 (88) 99 Room Air Physical Exam General Appearance: no apparent distress Eyes: normal inspection, PERRL ENT: hearing grossly normal Neck: supple Respiratory/Chest: lungs clear, no respiratory distress, no accessory muscle use, + pertinent finding (mediport R chest ) Cardiovascular: regular rate, rhythm Abdomen: normal bowel sounds, soft, + tenderness (ttp, diffuse ) Extremities: no calf tenderness, + pertinent finding (+non-pitting edema to bilateral upper/lower extremities ) Neurologic/Psychiatric: alert, normal mood/affect, oriented x 3 Skin: warm/dry, no rash, + pallor Laboratory Results Last 24 Hours Test 02/14/18 07:50 White Blood Count 2.31 K/uL Red Blood Count 2.68 M/uL Hemoglobin 8.0 g/dL Hematocrit 23.4 % Mean Corpuscular Volume 87.3 fL Mean Corpuscular Hemoglobin 29.9 pg Mean Corpuscular Hemoglobin Concent 34.2 g/dl RDW Standard Deviation 54.3 fL RDW Coefficient of Variation 17.1 % Platelet Count 6 K/uL Platelet Estimate SIGNIFIC DECREASED Sodium Level 140 mmol/L Potassium Level 3.8 mmol/L Chloride Level 105 mmol/L Carbon Dioxide Level 30 mmol/L Anion Gap 5.0 mmol/L Blood Urea Nitrogen 16 mg/dl Creatinine 0.89 mg/dl Est Creatinine Clear Calc Drug Dose 90.1 ml/min Estimated GFR () 92.7 Estimated GFR (Non- 79.9 BUN/Creatinine Ratio 17.8 Random Glucose 92 mg/dl Calcium Level 7.9 mg/dl Assessment and Plan 42 y/o female with a history of breast cancer currently on chemo, Crohn's disease, anxiety and depression, PUD and GERD who [facility] with generalized non-pitting edema and acute anemia. Generalized edema, ?secondary to chemo and/or steroids- IMPROVING: - Admit to med/surg - Continue Lasix 40 mg PO daily - Monitor I&Os and daily weights- negative 1.2L, down 7kg since admission Pancytopenia: - Follow H&H and transfuse PRN for hgb < 8.0 - Hgb 8.0 today- s/p 2 u PRBCs on 02/12 - PLT now 6- will transfuse 2 u of platelets today - Fecal occult blood negative - Heme/oncology consulted, appreciate recommendations- keep hgb > 8 and PLT over 15-20K N/V, abdominal pain, h/o Crohn's: - Stool cultures pending; fecal calprotectin pending; c.diff negative - CT abdomen/pelvis 02/11 w/ enteritis- stable from 01/20/18 study - Abdominal x-ray today w/ no bowel obstruction, mild fecal load noted- Milk of Mag PRN, MiraLAX PRN, Colace BID PRN - Patient's home Colazal is non-formulary - Advanced diet this afternoon, tolerating well - Start IV Flagyl + Cipro on 02/14 per GI recommendations due to risk of typhilitis with chemotherapy - Continue Oxycodone, Tramadol, Dilaudid PRN for pain management - Zofran, Compazine PRN for nausea - GI consulted, appreciate recommendations- Budesonide 9 mg daily and Pentasa 500 mg QID, avoid opioids as possible Breast cancer on chemotherapy: Oncology following Anxiety, depression: Continue Ativan 1 mg TID, Zoloft 100 mg daily PUD, GERD: Continue Protonix, Robinol 2 mg BID DVT prophylaxis: None due to thrombocytopenia and anemia Code status: LEVEL I, FULL Dispo: From home, lives w/ - discharge uncertain at this time
[2018-02-14] MEDS ORDERED: DOCUSATE SODIUM 100 MG CAP PO PRN (14:00)
[2018-02-14] MEDS ORDERED: POLYETHYLENE (MIRALAX) 17 GM PACK PO PRN (14:00)
[2018-02-14] MEDS ORDERED: CIPROFLOXACIN / D5W 400 MG in PREMIXED IN D5W 200 ML IV ONE (14:00)
[2018-02-14] MEDS: METRONIDAZOLE / NSS 500 MG in PREMIXED NSS 100 ML IV SCH ×2 (17:17→22:19)
[2018-02-14] MEDS: CIPROFLOXACIN / D5W 400 MG in PREMIXED IN D5W 200 ML IV SCH (23:43)
[2018-02-15] VITALS (18 sets, daily range): BP systolic 103–158; BP diastolic 61–91; PULSE 56–78; TEMP 36.7–37; O2SAT 95–100
[2018-02-15] MEDS: HYDROmorphone INJ 0.5 MG/0.5 ML SYR IV PRN ×4 (02:46→20:34)
[2018-02-15] MEDS: PROCHLORPERAZINE MALEATE 10 MG TAB PO SCH ×5 (04:00→19:37)
[2018-02-15] MEDS: METRONIDAZOLE / NSS 500 MG in PREMIXED NSS 100 ML IV SCH ×3 (06:21→22:46)
[2018-02-15 06:42] LABS: CALCIUM 8.1 mg/dl (8.5-10.1); CREATININE 0.83 mg/dl (0.60-1.20); POTASSIUM 4.2 mmol/L (3.5-5.1)
[2018-02-15 07:00] LABS: HEMOGLOBIN 7.3 g/dL (12.0-16.0); MEAN CORPUSCULAR HEMOGLOBIN 29.2 pg (25-34); MEAN CORPUSCULAR HGB CONC 33.2 g/dl (32-36); PLATELET COUNT 12 K/uL (130-400); RED CELL DISTRIBUTION WIDTH CV 16.8 % (11.5-14.5); RED CELL DISTRIBUTION WIDTH SD 53.8 fL (36.4-46.3); WHITE BLOOD COUNT 1.86 K/uL (4.8-10.8)
[2018-02-15] MEDS: MAGNESIUM HYDROXIDE SUSP 30 ML UDC PO PRN (07:14)
[2018-02-15] MEDS: METHYLPHENIDATE HCL 10 MG TAB PO SCH ×2 (08:30→19:41)
[2018-02-15] MEDS: PRENATAL VITAMIN TAB PO SCH (08:30)
[2018-02-15] MEDS: PANTOprazole SOD 40 MG TAB PO SCH (08:31)
[2018-02-15] MEDS: LORAZEPAM 1 MG TAB PO SCH ×3 (08:31→19:39)
[2018-02-15] MEDS: BUDESONIDE EC 3 MG CAP PO SCH (08:32)
[2018-02-15] MEDS: SERTRALINE HCL 100 MG TAB PO SCH (08:32)
[2018-02-15] MEDS: GLYCOPYRROLATE 1 MG TAB PO SCH ×2 (08:32→19:42)
[2018-02-15] MEDS: MESALAMINE 250 MG CAPCR PO SCH ×4 (08:33→19:41)
[2018-02-15] MEDS: FUROSEMIDE 40 MG TAB PO SCH (08:33)
[2018-02-15] MEDS: CIPROFLOXACIN / D5W 400 MG in PREMIXED IN D5W 200 ML IV SCH ×2 (08:39→22:42)
--- NOTE | 2018-02-15 09:14 | Hospitalist Progress Note ---
Hospitalist Progress Note Date of Service Feb 15, 2018. Subjective Pt evaluation today including: conversation w/ patient, physical exam, lab review, review of inpatient medication list Voiding: no voiding problems Patient sitting up in bed, eating breakfast. Feeling well this AM but still not great. Eating and drinking OK. 1 BM yesterday. Passing flatus. Abdominal pain continues to improve. Edema is improving. Patient denies any fever, chills, sweats, lightheadedness, dizziness, vision changes, CP, palpitations, edema, SOB, wheezing, cough, nausea, vomiting, diarrhea, urinary symptoms, melena, numbness/tingling, weakness, muscle/joint pain, anxiety/depression, active bleeding, or new skin discoloration/changes. Medications Current Inpatient Medications Medications (Trade) Dose Ordered Sig/Katherine Route Start Time Stop Time Status Last Admin Dose Admin Acetaminophen (Tylenol Tab) 650 mg Q4H PRN PO 02/12/18 16:15 03/14/18 16:14 Magnesium Hydroxide (Milk Of Magnesia Susp) 30 ml Q6H PRN PO 02/12/18 16:15 03/14/18 16:14 02/15/18 07:14 30 ML Furosemide (Lasix Tab) 40 mg DAILY PO 02/13/18 08:00 03/15/18 07:59 02/15/18 08:33 40 MG Lorazepam (Ativan Tab) 1 mg TID PO 02/12/18 20:00 03/14/18 19:59 02/15/18 08:31 1 MG Methylphenidate HCl (Ritalin Tab) 5 mg BID PO 02/12/18 20:00 02/26/18 19:59 Prenat Multivit/ [place]/Iron/Folic Ac ( Vitamin Tab) 1 tab DAILY PO 02/13/18 08:00 03/15/18 07:59 Ondansetron HCl (Zofran Tab) 8 mg PRN PRN PO 02/12/18 16:15 03/14/18 16:14 02/12/18 22:50 8 MG Oxycodone HCl (Roxicodone Immediate Rel Tab) 5 mg Q6H PRN PO 02/12/18 16:15 02/26/18 16:14 Oxycodone HCl (Roxicodone Immediate Rel Tab) 10 mg Q6H PRN PO 02/12/18 16:15 02/26/18 16:14 02/12/18 17:02 10 MG Pantoprazole Sodium (Protonix Tab) 40 mg QAM PO 02/13/18 08:00 03/15/18 07:59 02/15/18 08:31 40 MG Prochlorperazine Maleate (Compazine Tab) 10 mg Q4H PO 02/12/18 20:00 03/14/18 19:59 02/15/18 08:31 10 MG Promethazine HCl (Phenergan Supp) 25 mg Q6H PRN [place] 02/12/18 16:15 03/14/18 16:14 Sertraline HCl (Zoloft Tab) 100 mg DAILY PO 02/13/18 08:00 03/15/18 07:59 02/15/18 08:32 100 MG Tramadol HCl (Ultram Tab) 100 mg TID PRN PO 02/12/18 16:15 03/14/18 16:14 Miscellaneous Information (Order Awaiting Action) 1 ea QS N/A 02/13/18 00:00 03/15/18 00:00 Glycopyrrolate (Robinul Tab) 2 mg BID PO 02/12/18 20:00 03/14/18 19:59 02/15/18 08:32 2 MG Heparin Sodium (Porcine) (Heparin 100 Unit/ml 5ml Flush) 5 ml PRN PRN IV 02/12/18 17:45 03/14/18 17:44 02/15/18 05:27 5 ML Morphine Sulfate (MoRPHine SULFATE INJ) 1 mg Q4H PRN IV 02/12/18 18:00 02/26/18 17:59 02/14/18 22:27 1 MG Hydromorphone HCl (Dilaudid Inj) 0.5 mg Q4H PRN IV 02/12/18 20:00 02/26/18 19:59 02/15/18 07:10 0.5 MG Ondansetron HCl (Zofran Inj) 4 mg Q4H PRN IV 02/12/18 21:45 03/14/18 21:44 02/14/18 19:48 4 MG Budesonide (Entocort EC Cap) 9 mg QAM PO 02/13/18 10:20 03/15/18 10:19 02/15/18 08:32 9 MG Mesalamine (Pentasa Controlled Rel Cap) 1,000 mg QID PO 02/13/18 17:00 03/15/18 09:14 02/15/18 08:33 1,000 MG Metronidazole 500 mg/Prmx 100 ml @ 100 mls/hr Q8H IV 02/14/18 14:00 02/24/18 13:59 02/15/18 06:21 100 MLS/HR Ciprofloxacin/ Dextrose 400 mg/ Prmx 200 ml @ 100 mls/hr Q12@1000,2200 IV 02/14/18 23:30 02/24/18 23:29 02/15/18 08:39 100 MLS/HR Polyethylene (Miralax Powder Packet) 17 gm DAILY PRN PO 02/14/18 14:00 03/16/18 13:59 Docusate Sodium (coLACE CAP) 100 mg BID PRN PO 02/14/18 14:00 03/16/18 13:59 Objective Vital Signs Date Time Temp Pulse Resp B/P (MAP) Pulse Ox O2 Delivery O2 Flow Rate FiO2 02/15/18 08:01 37.0 74 16 103/61 (75) 96 Room Air 02/15/18 02:00 Room Air 02/15/18 00:00 36.7 60 18 114/73 (87) 96 Room Air 02/14/18 20:00 Room Air 02/14/18 19:24 36.9 66 18 150/80 (103) 100 Room Air 02/14/18 15:30 36.7 60 18 125/70 99 02/14/18 15:12 Room Air 02/14/18 14:46 36.9 71 18 116/74 02/14/18 14:15 37.0 67 18 123/76 99 02/14/18 14:06 36.9 68 18 135/79 99 02/14/18 11:14 37.0 74 18 118/79 (92) 97 Room Air Physical Exam General Appearance: no apparent distress Eyes: normal inspection ENT: hearing grossly normal Neck: supple Respiratory/Chest: lungs clear, normal breath sounds, no respiratory distress, no accessory muscle use Cardiovascular: regular rate, rhythm Abdomen: normal bowel sounds, non tender, soft Extremities: no pedal edema, no calf tenderness Neurologic/Psychiatric: alert, normal mood/affect, oriented x 3 Skin: warm/dry, no rash, + pallor Laboratory Results Last 24 Hours Test 02/15/18 05:27 White Blood Count 1.86 K/uL Red Blood Count 2.50 M/uL Hemoglobin 7.3 g/dL Hematocrit 22.0 % Mean Corpuscular Volume 88.0 fL Mean Corpuscular Hemoglobin 29.2 pg Mean Corpuscular Hemoglobin Concent 33.2 g/dl RDW Standard Deviation 53.8 fL RDW Coefficient of Variation 16.8 % Platelet Count 12 K/uL Platelet Estimate SIGNIFIC DECREASED Sodium Level 138 mmol/L Potassium Level 4.2 mmol/L Chloride Level 105 mmol/L Carbon Dioxide Level 27 mmol/L Anion Gap 6.0 mmol/L Blood Urea Nitrogen 14 mg/dl Creatinine 0.83 mg/dl Est Creatinine Clear Calc Drug Dose 96.6 ml/min Estimated GFR () 100.8 Estimated GFR (Non- 87.0 BUN/Creatinine Ratio 16.3 Random Glucose 91 mg/dl Calcium Level 8.1 mg/dl Assessment and Plan 42 y/o female with a history of breast cancer currently on chemo, Crohn's disease, anxiety and depression, PUD and GERD who presents for direct admission from [facility] with generalized non-pitting edema and acute anemia. Generalized edema, ?secondary to chemo and/or steroids- IMPROVING: - Admit to med/surg - Continue Lasix 40 mg PO daily - Monitor I&Os and daily weights- negative 2.3L, down 7kg since admission Pancytopenia: - Neutropenic/bleeding precautions - Follow H&H and transfuse PRN for hgb < 8.0 - Hgb 7.3 today- s/p 2 u PRBCs on 02/12, will transfuse 2 more units of PRBCs today - PLT now 12 from 6 yesterday- s/p 1 u plt on 02/14, will transfuse 1 more unit of plt today - Fecal occult blood negative - Heme/oncology consulted, appreciate recommendations- keep hgb > 8 and PLT over 15-20K N/V, abdominal pain, h/o Crohn's- IMPROVING: - Stool cultures negative; fecal calprotectin pending; c.diff negative - CT abdomen/pelvis 02/11 w/ enteritis- stable from 01/20/18 study - Abdominal x-ray today w/ no bowel obstruction, mild fecal load noted- Milk of Mag PRN, MiraLAX PRN, Colace BID PRN- 1 small BM yesterday - Patient's home Colazal is non-formulary - Tolerating regular diet - Start IV Flagyl + Cipro on 02/14 per GI recommendations due to risk of typhilitis with chemotherapy - Continue Oxycodone, Tramadol, Dilaudid PRN for pain management - Zofran, Compazine PRN for nausea - GI consulted, appreciate recommendations- Budesonide 9 mg daily and Pentasa 500 mg QID, avoid opioids as possible Breast cancer on chemotherapy: Oncology following Anxiety, depression- STABLE: Continue Ativan 1 mg TID, Zoloft 100 mg daily PUD, GERD- STABLE: Continue Protonix, Robinol 2 mg BID DVT prophylaxis: None due to thrombocytopenia and anemia Code status: LEVEL I, FULL Dispo: From home, lives w/ - discharge uncertain at this time
--- NOTE | 2018-02-15 09:16 | Gastroenterology Progress Note ---
Progress Note Date of Service: Feb 15, 2018 Subjective Pt evaluation today including: conversation w/ patient, physical exam The patient reports having continued abdominal discomfort although it seems to be improved as compared to yesterday. After some reflection I wondered if the patient may have typhlitis and therefore had her started on ciprofloxacin and metronidazole yesterday. Review of Systems Constitutional: No fever Respiratory: No cough, No shortness of breath Cardiac: No chest pain Medications Current Inpatient Medications Medications (Trade) Dose Ordered Sig/Katherine Route Start Time Stop Time Status Last Admin Dose Admin Acetaminophen (Tylenol Tab) 650 mg Q4H PRN PO 02/12/18 16:15 03/14/18 16:14 Magnesium Hydroxide (Milk Of Magnesia Susp) 30 ml Q6H PRN PO 02/12/18 16:15 03/14/18 16:14 02/15/18 07:14 30 ML Furosemide (Lasix Tab) 40 mg DAILY PO 02/13/18 08:00 03/15/18 07:59 02/15/18 08:33 40 MG Lorazepam (Ativan Tab) 1 mg TID PO 02/12/18 20:00 03/14/18 19:59 02/15/18 08:31 1 MG Methylphenidate HCl (Ritalin Tab) 5 mg BID PO 02/12/18 20:00 02/26/18 19:59 Prenat Multivit/ [place]/Iron/Folic Ac ( Vitamin Tab) 1 tab DAILY PO 02/13/18 08:00 03/15/18 07:59 Ondansetron HCl (Zofran Tab) 8 mg PRN PRN PO 02/12/18 16:15 03/14/18 16:14 02/12/18 22:50 8 MG Oxycodone HCl (Roxicodone Immediate Rel Tab) 5 mg Q6H PRN PO 02/12/18 16:15 02/26/18 16:14 Oxycodone HCl (Roxicodone Immediate Rel Tab) 10 mg Q6H PRN PO 02/12/18 16:15 02/26/18 16:14 02/12/18 17:02 10 MG Pantoprazole Sodium (Protonix Tab) 40 mg QAM PO 02/13/18 08:00 03/15/18 07:59 02/15/18 08:31 40 MG Prochlorperazine Maleate (Compazine Tab) 10 mg Q4H PO 02/12/18 20:00 03/14/18 19:59 02/15/18 08:31 10 MG Promethazine HCl (Phenergan Supp) 25 mg Q6H PRN [place] 02/12/18 16:15 03/14/18 16:14 Sertraline HCl (Zoloft Tab) 100 mg DAILY PO 02/13/18 08:00 03/15/18 07:59 02/15/18 08:32 100 MG Tramadol HCl (Ultram Tab) 100 mg TID PRN PO 02/12/18 16:15 03/14/18 16:14 Miscellaneous Information (Order Awaiting Action) 1 ea QS N/A 02/13/18 00:00 03/15/18 00:00 Glycopyrrolate (Robinul Tab) 2 mg BID PO 02/12/18 20:00 03/14/18 19:59 02/15/18 08:32 2 MG Heparin Sodium (Porcine) (Heparin 100 Unit/ml 5ml Flush) 5 ml PRN PRN IV 02/12/18 17:45 03/14/18 17:44 02/15/18 05:27 5 ML Morphine Sulfate (MoRPHine SULFATE INJ) 1 mg Q4H PRN IV 02/12/18 18:00 02/26/18 17:59 02/14/18 22:27 1 MG Hydromorphone HCl (Dilaudid Inj) 0.5 mg Q4H PRN IV 02/12/18 20:00 02/26/18 19:59 02/15/18 07:10 0.5 MG Ondansetron HCl (Zofran Inj) 4 mg Q4H PRN IV 02/12/18 21:45 03/14/18 21:44 02/14/18 19:48 4 MG Budesonide (Entocort EC Cap) 9 mg QAM PO 02/13/18 10:20 03/15/18 10:19 02/15/18 08:32 9 MG Mesalamine (Pentasa Controlled Rel Cap) 1,000 mg QID PO 02/13/18 17:00 03/15/18 09:14 02/15/18 08:33 1,000 MG Metronidazole 500 mg/Prmx 100 ml @ 100 mls/hr Q8H IV 02/14/18 14:00 02/24/18 13:59 02/15/18 06:21 100 MLS/HR Ciprofloxacin/ Dextrose 400 mg/ Prmx 200 ml @ 100 mls/hr Q12@1000,2200 IV 02/14/18 23:30 02/24/18 23:29 02/15/18 08:39 100 MLS/HR Polyethylene (Miralax Powder Packet) 17 gm DAILY PRN PO 02/14/18 14:00 03/16/18 13:59 Docusate Sodium (coLACE CAP) 100 mg BID PRN PO 02/14/18 14:00 03/16/18 13:59 Objective Vital Signs Date Time Temp Pulse Resp B/P (MAP) Pulse Ox O2 Delivery O2 Flow Rate FiO2 02/15/18 08:01 37.0 74 16 103/61 (75) 96 Room Air 02/15/18 02:00 Room Air 02/15/18 00:00 36.7 60 18 114/73 (87) 96 Room Air 02/14/18 20:00 Room Air 02/14/18 19:24 36.9 66 18 150/80 (103) 100 Room Air 02/14/18 15:30 36.7 60 18 125/70 99 02/14/18 15:12 Room Air 02/14/18 14:46 36.9 71 18 116/74 02/14/18 14:15 37.0 67 18 123/76 99 02/14/18 14:06 36.9 68 18 135/79 99 02/14/18 11:14 37.0 74 18 118/79 (92) 97 Room Air Physical Exam General Appearance: no apparent distress Neck: no JVD Respiratory/Chest: lungs clear Cardiovascular: regular rate, rhythm Abdomen: soft, + tenderness (mild RLQ tenderness) Skin: no jaundice Laboratory Results Last 24 Hours Test 02/15/18 05:27 White Blood Count 1.86 K/uL Red Blood Count 2.50 M/uL Hemoglobin 7.3 g/dL Hematocrit 22.0 % Mean Corpuscular Volume 88.0 fL Mean Corpuscular Hemoglobin 29.2 pg Mean Corpuscular Hemoglobin Concent 33.2 g/dl RDW Standard Deviation 53.8 fL RDW Coefficient of Variation 16.8 % Platelet Count 12 K/uL Platelet Estimate SIGNIFIC DECREASED Sodium Level 138 mmol/L Potassium Level 4.2 mmol/L Chloride Level 105 mmol/L Carbon Dioxide Level 27 mmol/L Anion Gap 6.0 mmol/L Blood Urea Nitrogen 14 mg/dl Creatinine 0.83 mg/dl Est Creatinine Clear Calc Drug Dose 96.6 ml/min Estimated GFR () 100.8 Estimated GFR (Non- 87.0 BUN/Creatinine Ratio 16.3 Random Glucose 91 mg/dl Calcium Level 8.1 mg/dl Assessment and Plan She with a history of breast cancer on chemotherapy admitted with abdominal discomfort and pancytopenia. Given the right-sided discomfort and imaging studies Dr. Naidu and transitioned her to budesonide as steroids were thought to be causing further problems with her edema. I would suggest that we continue with this regimen for the present time. I am also somewhat concerned about the possibility of typhlitis given the patient's pancytopenia and ongoing chemotherapy. We therefore started her on ciprofloxacin and Flagyl yesterday. Recomendations: Continue with Budesonide Cipro / Flagyl for possible typhlitis Miralax 17 gm bid for constipation Defer to hematology with regard to pancytopenia
[2018-02-15] MEDS: POLYETHYLENE (MIRALAX) 17 GM PACK PO SCH ×3 (10:38→20:00)
--- NOTE | 2018-02-15 10:46 | Hematology/Oncology Prog Note ---
Hematology/Onc Progress Note Date of Service Feb 15, 2018. Diagnoses Triple negative breast cancer Abdominal pain Edema Pancytopenia Medications Medications Administered Medications (Trade) Dose Ordered Sig/Katherine Route Start Time Stop Time Status Last Admin Dose Admin Magnesium Hydroxide (Milk Of Magnesia Susp) 30 ml Q6H PRN PO 02/12/18 16:15 03/14/18 16:14 02/15/18 07:14 30 ML Ondansetron HCl (Zofran Inj) 4 mg Q6H PRN IV 02/12/18 16:15 02/14/18 13:59 DC 02/13/18 08:22 4 MG Furosemide (Lasix Tab) 40 mg DAILY PO 02/13/18 08:00 03/15/18 07:59 02/15/18 08:33 40 MG Lorazepam (Ativan Tab) 1 mg TID PO 02/12/18 20:00 03/14/18 19:59 02/15/18 08:31 1 MG Ondansetron HCl (Zofran Tab) 8 mg PRN PRN PO 02/12/18 16:15 03/14/18 16:14 02/12/18 22:50 8 MG Oxycodone HCl (Roxicodone Immediate Rel Tab) 10 mg Q6H PRN PO 02/12/18 16:15 02/26/18 16:14 02/12/18 17:02 10 MG Pantoprazole Sodium (Protonix Tab) 40 mg QAM PO 02/13/18 08:00 03/15/18 07:59 02/15/18 08:31 40 MG Prochlorperazine Maleate (Compazine Tab) 10 mg Q4H PO 02/12/18 20:00 03/14/18 19:59 02/15/18 08:31 10 MG Sertraline HCl (Zoloft Tab) 100 mg DAILY PO 02/13/18 08:00 03/15/18 07:59 02/15/18 08:32 100 MG Glycopyrrolate (Robinul Tab) 2 mg BID PO 02/12/18 20:00 03/14/18 19:59 02/15/18 08:32 2 MG Sertraline HCl (Zoloft Tab) 100 mg 1609 ONCE PO 02/12/18 16:09 02/12/18 16:15 DC 02/12/18 17:02 100 MG Furosemide 40 mg/ Syringe 4 ml @ 4 mls/min ONE ONCE IV 02/12/18 16:45 02/12/18 16:46 DC 02/12/18 19:37 4 MLS/MIN Lorazepam (Ativan Tab) 1 mg TODAY@1700 PO 02/12/18 17:00 02/12/18 18:00 DC 02/12/18 17:19 1 MG Heparin Sodium (Porcine) (Heparin 100 Unit/ml 5ml Flush) 5 ml STK-MED ONCE .ROUTE 02/12/18 17:11 02/12/18 17:12 DC 02/12/18 17:11 5 ML Heparin Sodium (Porcine) (Heparin 100 Unit/ml 5ml Flush) 5 ml PRN PRN IV 02/12/18 17:45 03/14/18 17:44 02/15/18 05:27 5 ML Morphine Sulfate (MoRPHine SULFATE INJ) 1 mg Q4H PRN IV 02/12/18 18:00 02/26/18 17:59 02/14/18 22:27 1 MG Hydromorphone HCl (Dilaudid Inj) 0.5 mg Q4H PRN IV 02/12/18 20:00 02/26/18 19:59 02/15/18 07:10 0.5 MG Ondansetron HCl (Zofran Inj) 4 mg Q4H PRN IV 02/12/18 21:45 03/14/18 21:44 02/14/18 19:48 4 MG Mesalamine (Pentasa Controlled Rel Cap) 500 mg QID PO 02/13/18 09:15 02/13/18 16:16 DC 02/13/18 11:27 500 MG Budesonide (Entocort EC Cap) 9 mg QAM PO 02/13/18 10:20 03/15/18 10:19 02/15/18 08:32 9 MG Mesalamine (Pentasa Controlled Rel Cap) 1,000 mg QID PO 02/13/18 17:00 03/15/18 09:14 02/15/18 08:33 1,000 MG Furosemide 20 mg/ Syringe 2 ml @ 4 mls/min 1945 ONCE IV 02/13/18 19:45 02/13/18 19:46 DC 02/13/18 19:41 4 MLS/MIN Sodium Chloride ([place] Nasal [place]) 225 sprays STK-MED ONCE .ROUTE 02/14/18 08:43 02/14/18 08:44 DC 02/14/18 08:55 225 SPRAYS Metronidazole 500 mg/Prmx 100 ml @ 100 mls/hr Q8H IV 02/14/18 14:00 02/24/18 13:59 02/15/18 06:21 100 MLS/HR Ciprofloxacin/ Dextrose 400 mg/ Prmx 200 ml @ 100 mls/hr Q12@1000,2200 IV 02/14/18 23:30 02/24/18 23:29 02/15/18 08:39 100 MLS/HR Ciprofloxacin/ Dextrose 400 mg/ Prmx 200 ml @ 100 mls/hr ONE ONCE IV 02/14/18 14:00 02/14/18 15:59 DC 02/14/18 18:27 100 MLS/HR Subjective Ms. Low is sitting comfortably in her chair. Her edema is markedly improved , though she still feels it could be better. She has some soreness in her extremities as well. Her abdominal complaints are improving, though she still has pain when she moves suddenly. Her counts remain low and she is being transfused both PRBCs and platelets today. Review of Systems: Constitutional: + fatigue Respiratory: No cough, No shortness of breath Cardiovascular: No chest pain Abdomen: + pain, No GI bleeding Musculoskeletal: + joint pain, + swelling Heme: No abnormal bleeding/bruising Vital Signs Vital Signs Past 12 Hours Date Time Temp Pulse Resp B/P (MAP) Pulse Ox O2 Delivery O2 Flow Rate FiO2 02/15/18 10:30 36.7 74 18 134/80 02/15/18 10:11 36.7 74 18 135/79 02/15/18 08:30 Room Air 02/15/18 08:01 37.0 74 16 103/61 (75) 96 Room Air 02/15/18 02:00 Room Air 02/15/18 00:00 36.7 60 18 114/73 (87) 96 Room Air Physical Exam Constitutional: General Apperance: heathly-appearing Level of Distress: NAD Psychiatric: Mental Status: active & alert Orientation: oriented except where noted Lungs: Auscuitation: breath sounds normal Cardiovascular: Heart Auscultation: RRR Abdomen: Inspection & Palpation: soft, no tenderness, guarding & rebound Extremities: no edema Laboratory Last 24 Hours Test 02/15/18 05:27 White Blood Count 1.86 K/uL Red Blood Count 2.50 M/uL Hemoglobin 7.3 g/dL Hematocrit 22.0 % Mean Corpuscular Volume 88.0 fL Mean Corpuscular Hemoglobin 29.2 pg Mean Corpuscular Hemoglobin Concent 33.2 g/dl RDW Standard Deviation 53.8 fL RDW Coefficient of Variation 16.8 % Platelet Count 12 K/uL Platelet Estimate SIGNIFIC DECREASED Sodium Level 138 mmol/L Potassium Level 4.2 mmol/L Chloride Level 105 mmol/L Carbon Dioxide Level 27 mmol/L Anion Gap 6.0 mmol/L Blood Urea Nitrogen 14 mg/dl Creatinine 0.83 mg/dl Est Creatinine Clear Calc Drug Dose 96.6 ml/min Estimated GFR () 100.8 Estimated GFR (Non- 87.0 BUN/Creatinine Ratio 16.3 Random Glucose 91 mg/dl Calcium Level 8.1 mg/dl Assessment & Plan Her edema has essentially resolved, though she still feels it is not entirely gone. The cause remains unclear. Capillary leak syndrome from chemotherapy generally presents in a catastrophic manner, rather than like this. I agree that steroids may have contributed. She also has low albumin, which certainly played a role. I would watch out for additional edema, given all the blood products she is receiving, though colloid generally causes less edema than IV fluids. Her abdominal pain also appears to be improving. She is being managed by gastroenterology and is now on an enteric steroid and Pentasa. Her counts remain low and I concur with Dr. Hernandez's recommendations for transfusion goals (Hgb >8, Plts >10-15K). Her counts should start to rise in the next few days.
[2018-02-15] MEDS ORDERED: LIDOCAINE HCL 2% VISC SOLN 20 ML UDC MT PRN (15:00)
[2018-02-15] MEDS: MoRPHine SULFATE 2 MG/ML CARP IV PRN ×2 (17:42→21:57)
[2018-02-16] VITALS (7 sets, daily range): BP systolic 127–142; BP diastolic 72–84; PULSE 56–73; TEMP 36.6–37; O2SAT 95–100
[2018-02-16] MEDS: PROCHLORPERAZINE MALEATE 10 MG TAB PO SCH ×7 (00:41→23:47)
[2018-02-16] MEDS: HYDROmorphone INJ 0.5 MG/0.5 ML SYR IV PRN ×4 (00:41→21:25)
[2018-02-16] MEDS: MoRPHine SULFATE 2 MG/ML CARP IV PRN ×4 (04:03→23:47)
[2018-02-16 05:49] LABS: HEMATOCRIT 26.5 % (37-47); HEMOGLOBIN 8.9 g/dL (12.0-16.0); MEAN CELL VOLUME 83.6 fL (80-100); MEAN CORPUSCULAR HEMOGLOBIN 28.1 pg (25-34); MEAN CORPUSCULAR HGB CONC 33.6 g/dl (32-36); PLATELET COUNT 15 K/uL (130-400); RED CELL DISTRIBUTION WIDTH CV 18.1 % (11.5-14.5); RED CELL DISTRIBUTION WIDTH SD 55.7 fL (36.4-46.3); WHITE BLOOD COUNT 2.05 K/uL (4.8-10.8)
[2018-02-16 05:58] LABS: CALCIUM 8.1 mg/dl (8.5-10.1); CREATININE 0.85 mg/dl (0.60-1.20); POTASSIUM 4.1 mmol/L (3.5-5.1)
[2018-02-16 06:11] LABS: EOS ABS # 0.04 K/uL (0-0.5); LYMPH ABS # 0.82 K/uL (1.2-3.4); MONO % 1.5 %; MONO ABS # 0.03 K/uL (0.11-0.59); NEUT % 56.5 %; NEUT ABS # 1.16 K/uL (1.4-6.5)
[2018-02-16] MEDS: METRONIDAZOLE / NSS 500 MG in PREMIXED NSS 100 ML IV SCH ×3 (06:30→21:25)
[2018-02-16] MEDS: METHYLPHENIDATE HCL 10 MG TAB PO SCH ×2 (08:00→21:17)
[2018-02-16] MEDS: BUDESONIDE EC 3 MG CAP PO SCH (08:03)
[2018-02-16] MEDS: SERTRALINE HCL 100 MG TAB PO SCH (08:03)
[2018-02-16] MEDS: LORAZEPAM 1 MG TAB PO SCH ×3 (08:03→21:17)
[2018-02-16] MEDS: MESALAMINE 250 MG CAPCR PO SCH ×4 (08:03→21:17)
[2018-02-16] MEDS: FLINTSTONES COMPLETE CHEWABLE TAB PO SCH (08:03)
[2018-02-16] MEDS: POLYETHYLENE (MIRALAX) 17 GM PACK PO SCH ×2 (08:04→21:17)
[2018-02-16] MEDS: GLYCOPYRROLATE 1 MG TAB PO SCH ×2 (08:04→21:17)
[2018-02-16] MEDS: FUROSEMIDE 40 MG TAB PO SCH (08:05)
[2018-02-16] MEDS: PANTOprazole SOD 40 MG TAB PO SCH (08:05)
--- NOTE | 2018-02-16 09:16 | HEME/ONC PROGRESS NOTE ---
DATE: 02/16/2018 DIAGNOSES: 1. Anasarca. 2. Metastatic breast cancer. 3. Questionable colitis. 4. Pancytopenia attributable to chemotherapeutic effect. SUBJECTIVE: This is a pleasant 42-year-old female patient well known to [facility] suffers from metastatic triple negative breast cancer, currently receiving carboplatin and gemcitabine under the direction of Dr. Hernandez. She was admitted on January 2016 with increased upper and lower extremity edema. At the time of admission also been complaining of generalized malaise as well as abdominal pain primarily in the right lower quadrant. She has been aggressively diuresed over the weekend, is feeling better today. She is scheduled to resume chemotherapy on Friday and we will leave that up to the discretion of Dr. Hernandez. She remains profoundly pancytopenic. Nursing otherwise reports no overnight difficulties. PHYSICAL EXAMINATION: GENERAL: A 42-year-old female lying supine, awake and alert and appropriate, in no acute distress. VITAL SIGNS: Temperature 37, pulse 61, respirations 18, blood pressure 129/73. SKIN: Without rash or lesion. Turgor is good. HEENT: Oral mucosa without erythema or ulceration. NECK: Supple. HEART: Regular rate and rhythm. LUNGS: Clear to auscultation bilaterally. ABDOMEN: Soft, nontender, nondistended. EXTREMITIES: Trace peripheral edema in the lower extremities. Upper extremity still remain mildly puffy. NEUROLOGIC: Grossly intact. LABORATORY DATA: WBC count 2050, hemoglobin 8.9, platelet count 15,000. Sodium 137, potassium 4.1, chloride 104, carbon dioxide 28, creatinine 0.85, BUN 14. IMPRESSION: 1. Anasarca. 2. Pancytopenia attributable to adverse chemotherapeutic effect. 3. Colitis. 4. Metastatic breast cancer. PLAN: The patient continues on Flagyl for colitis. Her counts are slow to recover. She does not require transfusional support at this time. She was diuresed aggressively over the weekend and seems to be responding. The patient is tolerating her diet and ambulating ad margarita. We will discuss discharge plans with the medical team. Again, I will leave resumption of chemotherapy to Dr. Hernandez's discretion, but will certainly ensure that Arely has a followup appointment in short order post-discharge. I have nothing further to add at this juncture and will continue to follow her periodically during her hospitalization. [facility]
[2018-02-16] MEDS: CIPROFLOXACIN / D5W 400 MG in PREMIXED IN D5W 200 ML IV SCH ×2 (10:28→21:26)
--- NOTE | 2018-02-16 16:11 | Hospitalist Progress Note ---
Hospitalist Progress Note Date of Service Feb 16, 2018. (Gwendolyn Moreno ., RANDEEC) Subjective Pt evaluation today including: conversation w/ patient, physical exam, chart review, lab review, review of inpatient medication list Patient reports feeling well. She states her RLQ abdominal pain is starting to return and is burning in character. She is tolerating a regular diet with nausea or vomiting. She reports a cough that is sometimes productive. She states her swelling is improved but still not back to baseline. The patient denies fevers, chills, sweats, chest pain, palpitations, claudication, wheezing , shortness of breath, nausea, vomiting, dysuria, hematuria, urinary retention, paralysis, weakness, numbness and tingling. Additional Comments: See HPI for pertinent positives and negatives. All other systems reviewed and negative. (Gwendolyn Moreno ., RANDEEC) Objective Vital Signs Date Time Temp Pulse Resp B/P (MAP) Pulse Ox O2 Delivery O2 Flow Rate FiO2 02/16/18 15:34 36.6 65 16 127/76 (93) 95 Room Air 02/16/18 11:20 36.7 62 18 127/84 (98) 95 02/16/18 08:15 Room Air 02/16/18 07:14 37.0 61 18 129/73 (91) 95 02/16/18 04:16 37.0 73 18 129/72 (91) 95 Room Air 02/16/18 00:00 Room Air 02/15/18 22:20 36.7 56 16 128/77 95 02/15/18 21:00 37.0 59 16 130/83 96 02/15/18 20:30 36.9 60 16 144/87 96 02/15/18 20:00 Room Air 02/15/18 20:00 36.8 63 18 149/91 100 02/15/18 19:45 36.8 58 16 158/76 98 02/15/18 19:28 37.0 60 16 136/86 97 02/15/18 18:44 36.9 78 16 144/87 99 02/15/18 17:40 36.8 63 16 133/82 02/15/18 17:00 36.9 71 18 129/85 02/15/18 16:35 36.7 70 18 128/82 99 02/15/18 16:07 37.0 74 18 136/76 98 (Gwendolyn Moreno ., PA-C) Physical Exam Notes: General appearance: Well-developed, well-nourished, no apparent distress Head: Normocephalic, atraumatic Eyes: Normal inspection, PERRL, EOMI ENT: Normal ENT inspection, hearing grossly normal, pharynx normal Neck: Supple, no JVD, trachea midline Respiratory/Chest: +Mediport right chest. Lungs clear to auscultation, normal breath sounds, no respiratory distress Cardiovascular: Regular rate & rhythm, no gallop, no murmur Abdomen/GI: +RLQ TTP. Normal bowel sounds, soft Extremities/Musculoskeletal: +Non-pitting edema. Normal inspection, no calf tenderness Neurological/Psych: Alert, normal mood/affect, oriented x 3 Skin: Normal color, warm/dry, no rash (Gwendolyn Moreno ., PA-C) Laboratory Results Last 24 Hours Test 02/16/18 05:31 02/16/18 14:15 White Blood Count 2.05 K/uL Red Blood Count 3.17 M/uL Hemoglobin 8.9 g/dL Hematocrit 26.5 % Mean Corpuscular Volume 83.6 fL Mean Corpuscular Hemoglobin 28.1 pg Mean Corpuscular Hemoglobin Concent 33.6 g/dl Platelet Count 15 K/uL Neutrophils (%) (Auto) 56.5 % Lymphocytes (%) (Auto) 40.0 % Monocytes (%) (Auto) 1.5 % Eosinophils (%) (Auto) 2.0 % Basophils (%) (Auto) 0.0 % Neutrophils # (Auto) 1.16 K/uL Lymphocytes # (Auto) 0.82 K/uL Monocytes # (Auto) 0.03 K/uL Eosinophils # (Auto) 0.04 K/uL Basophils # (Auto) 0.00 K/uL RDW Standard Deviation 55.7 fL RDW Coefficient of Variation 18.1 % Immature Granulocyte % (Auto) 0.0 % Immature Granulocyte # (Auto) 0.00 K/uL Platelet Estimate SIGNIFIC DECREASED Ovalocytes 1+ Sodium Level 137 mmol/L Potassium Level 4.1 mmol/L Chloride Level 104 mmol/L Carbon Dioxide Level 28 mmol/L Anion Gap 5.0 mmol/L Blood Urea Nitrogen 14 mg/dl Creatinine 0.85 mg/dl Est Creatinine Clear Calc Drug Dose 94.4 ml/min Estimated GFR () 98.0 Estimated GFR (Non- 84.5 BUN/Creatinine Ratio 16.1 Random Glucose 92 mg/dl Calcium Level 8.1 mg/dl (Gwendolyn Moreno PA-C) Assessment and Plan 42 y/o female with a history of breast cancer currently on chemo, Crohn's disease, anxiety and depression, PUD and GERD who presents [facility] direct [facility] with generalized non-pitting edema and acute anemia. Generalized edema--improving -Admit to med/surg -Possibly related to chemo and/or steroids, however pt states that she has been on her current chemo regimen since October w/o issue and has been on steroids since 2016 w/o edema -Continue Lasix 40 mg PO qd -Monitor I's & O's Pancytopenia--stable -Hgb 8.9 on 02/16, up from 7.3. S/p 2 units PRBC 02/15, 2 units PRBC 02/12 -PLT 15 on 02/16, up from 12. S/p 1 units PLT 02/15 -PLT unchanged at 18k -Heme/onc consulted, appreciate recs: Would keep Hgb over 8 and PLT over 15- 20K. -Fecal occult blood negative N/V, abdominal pain, h/o Crohn's--improving -CT abdomen/pelvis 02/11 w/enteritis, stable from 01/20/18 study -GI consulted, appreciate recs: Continue with Budesonide. Cipro / Flagyl for possible typhlitis. Miralax 17 gm bid for constipation -Budesonide 9 mg PO qd and mesalamine 1 gm QID -Pt's home Colazal non-formulary -Stool studies negative, C. diff negative -Continue Cipro and Flagyl -Continue oxycodone, tramadol, Dilaudid prn pain -Zofran, Compazine prn nausea Breast cancer on chemo -Oncology following as above Anxiety/depression -Continue Ativan 1 mg PO TID, Zoloft 100 mg PO qd PUD/GERD -Continue Protonix, Robinol 2 mg PO BID DVT prophylaxis -Chemical ppx held due to pancytopenia, on bleeding precautions -SCDs when pt can tolerate Code Status -Level I, FULL RESUSCITATION STATUS (Moreno, Gwendolyn ., PA-C) I personally interviewed and examined the patient. I agree with history of present illness and physical exam mentioned above, I also performed my own history taking and examination. Past medical history and review of system has been obtained by myself I reviewed all pertinent labs and studies Reviewed current medications I discussed and formulated of the assessment and plan mentioned above. Please refer to the Summary mentioned below. 42-year-old female with recurrent triple negative breast cancer currently on chemotherapy, presented to the hospital with abdominal pain, pancytopenia and bowel thickening suspicious for typhlitis Currently having platelets transfusion as needed, platelet level today is 15,000 , no transfusion is required, bridal gown fitter/oncologist is on board GI consult appreciated agreed with current plan General Appearance: not in acute distress Eyes: normal Sclerae, extraocular muscle intact ENT: hearing grossly normal Neck: supple Respiratory/Chest: normal air entry bilateral ,no respiratory distress, no accessory muscle use Cardiovascular: regular rate, rhythm, no murmur Abdomen: Positive for tenderness all over the abdomen, soft, no masses Extremities: no edema Neurologic/Psychiatric: Awake alert oriented times place and person moves all extremities sensation intact cranial nerves II-12 appear to be intact Skin: normal color, warm/dry, no rash Jenny Márquez MD, [facility] hospitalist group (Clayton Márquez, Jenny Steward MD)
[2018-02-16 19:30] LABS: HEMATOCRIT 27.9 % (37-47); HEMOGLOBIN 9.7 g/dL (12.0-16.0); MEAN CORPUSCULAR HEMOGLOBIN 28.9 pg (25-34); MEAN CORPUSCULAR HGB CONC 34.8 g/dl (32-36); PLATELET COUNT 14 K/uL (130-400); RED CELL DISTRIBUTION WIDTH CV 18.1 % (11.5-14.5); RED CELL DISTRIBUTION WIDTH SD 54.4 fL (36.4-46.3); WHITE BLOOD COUNT 2.01 K/uL (4.8-10.8)
[2018-02-17] MEDS: HYDROmorphone INJ 0.5 MG/0.5 ML SYR IV PRN ×4 (03:27→21:25)
[2018-02-17] MEDS: PROCHLORPERAZINE MALEATE 10 MG TAB PO SCH ×6 (04:00→23:40)
[2018-02-17] MEDS: METRONIDAZOLE / NSS 500 MG in PREMIXED NSS 100 ML IV SCH ×3 (06:21→21:26)
[2018-02-17 06:23] LABS: HEMATOCRIT 26.8 % (37-47); HEMOGLOBIN 9.1 g/dL (12.0-16.0); MEAN CELL VOLUME 83.2 fL (80-100); MEAN CORPUSCULAR HEMOGLOBIN 28.3 pg (25-34); PLATELET COUNT 11 K/uL (130-400); RED CELL DISTRIBUTION WIDTH CV 17.6 % (11.5-14.5); RED CELL DISTRIBUTION WIDTH SD 53.1 fL (36.4-46.3); WHITE BLOOD COUNT 1.96 K/uL (4.8-10.8)
[2018-02-17 06:25] LABS: EOS ABS # 0.04 K/uL (0-0.5); LYMPH % 41.8 %; LYMPH ABS # 0.82 K/uL (1.2-3.4); MONO % 4.1 %; MONO ABS # 0.08 K/uL (0.11-0.59); NEUT % 52.1 %; NEUT ABS # 1.02 K/uL (1.4-6.5)
[2018-02-17 06:30] LABS: CALCIUM 8.4 mg/dl (8.5-10.1); CREATININE 0.86 mg/dl (0.60-1.20); POTASSIUM 4.2 mmol/L (3.5-5.1)
[2018-02-17 07:45] VITALS: BP 132/79; PULSE 66; TEMP 36.9; O2SAT 94
[2018-02-17] MEDS: METHYLPHENIDATE HCL 10 MG TAB PO SCH ×2 (09:11→20:00)
[2018-02-17] MEDS: GLYCOPYRROLATE 1 MG TAB PO SCH ×2 (09:14→20:09)
[2018-02-17] MEDS: PANTOprazole SOD 40 MG TAB PO SCH (09:14)
[2018-02-17] MEDS: LORAZEPAM 1 MG TAB PO SCH ×3 (09:14→20:07)
[2018-02-17] MEDS: FLINTSTONES COMPLETE CHEWABLE TAB PO SCH (09:15)
[2018-02-17] MEDS: MESALAMINE 250 MG CAPCR PO SCH ×4 (09:15→20:09)
[2018-02-17] MEDS: SERTRALINE HCL 100 MG TAB PO SCH (09:15)
[2018-02-17] MEDS: BUDESONIDE EC 3 MG CAP PO SCH (09:15)
[2018-02-17] MEDS: FUROSEMIDE 40 MG TAB PO SCH (09:16)
[2018-02-17] MEDS: POLYETHYLENE (MIRALAX) 17 GM PACK PO SCH ×2 (10:37→20:09)
[2018-02-17] MEDS: CIPROFLOXACIN / D5W 400 MG in PREMIXED IN D5W 200 ML IV SCH ×2 (10:38→22:39)
--- NOTE | 2018-02-17 11:31 | Hematology/Oncology Prog Note ---
Hematology/Onc Progress Note Date of Service Feb 17, 2018. Diagnoses Metastatic triple negative breast carcinoma Pancytopenia secondary to therapy History of granulomatous bowel disease Generalized edema probably prednisone related Medications Medications Administered Medications (Trade) Dose Ordered Sig/Katherine Route Start Time Stop Time Status Last Admin Dose Admin Magnesium Hydroxide (Milk Of Magnesia Susp) 30 ml Q6H PRN PO 02/12/18 16:15 03/14/18 16:14 02/15/18 07:14 30 ML Ondansetron HCl (Zofran Inj) 4 mg Q6H PRN IV 02/12/18 16:15 02/14/18 13:59 DC 02/13/18 08:22 4 MG Furosemide (Lasix Tab) 40 mg DAILY PO 02/13/18 08:00 03/15/18 07:59 02/17/18 09:16 40 MG Lorazepam (Ativan Tab) 1 mg TID PO 02/12/18 20:00 03/14/18 19:59 02/17/18 09:14 1 MG Ondansetron HCl (Zofran Tab) 8 mg PRN PRN PO 02/12/18 16:15 03/14/18 16:14 02/12/18 22:50 8 MG Oxycodone HCl (Roxicodone Immediate Rel Tab) 10 mg Q6H PRN PO 02/12/18 16:15 02/26/18 16:14 02/12/18 17:02 10 MG Pantoprazole Sodium (Protonix Tab) 40 mg QAM PO 02/13/18 08:00 03/15/18 07:59 02/17/18 09:14 40 MG Prochlorperazine Maleate (Compazine Tab) 10 mg Q4H PO 02/12/18 20:00 03/14/18 19:59 02/17/18 09:16 10 MG Sertraline HCl (Zoloft Tab) 100 mg DAILY PO 02/13/18 08:00 03/15/18 07:59 02/17/18 09:15 100 MG Glycopyrrolate (Robinul Tab) 2 mg BID PO 02/12/18 20:00 03/14/18 19:59 02/17/18 09:14 2 MG Sertraline HCl (Zoloft Tab) 100 mg 1609 ONCE PO 02/12/18 16:09 02/12/18 16:15 DC 02/12/18 17:02 100 MG Furosemide 40 mg/ Syringe 4 ml @ 4 mls/min ONE ONCE IV 02/12/18 16:45 02/12/18 16:46 DC 02/12/18 19:37 4 MLS/MIN Lorazepam (Ativan Tab) 1 mg TODAY@1700 PO 02/12/18 17:00 02/12/18 18:00 DC 02/12/18 17:19 1 MG Heparin Sodium (Porcine) (Heparin 100 Unit/ml 5ml Flush) 5 ml STK-MED ONCE .ROUTE 02/12/18 17:11 02/12/18 17:12 DC 02/12/18 17:11 5 ML Heparin Sodium (Porcine) (Heparin 100 Unit/ml 5ml Flush) 5 ml PRN PRN IV 02/12/18 17:45 03/14/18 17:44 02/17/18 05:41 5 ML Morphine Sulfate (MoRPHine SULFATE INJ) 1 mg Q4H PRN IV 02/12/18 18:00 02/26/18 17:59 02/16/18 23:47 1 MG Hydromorphone HCl (Dilaudid Inj) 0.5 mg Q4H PRN IV 02/12/18 20:00 02/26/18 19:59 02/17/18 10:37 0.5 MG Ondansetron HCl (Zofran Inj) 4 mg Q4H PRN IV 02/12/18 21:45 03/14/18 21:44 02/14/18 19:48 4 MG Mesalamine ([place]entasa Controlled Rel Cap) 500 mg QID PO 02/13/18 09:15 02/13/18 16:16 DC 02/13/18 11:27 500 MG Budesonide (Entocort EC Cap) 9 mg QAM PO 02/13/18 10:20 03/15/18 10:19 02/17/18 09:15 9 MG Mesalamine (Pentasa Controlled Rel Cap) 1,000 mg QID PO 02/13/18 17:00 03/15/18 09:14 02/17/18 09:15 1,000 MG Furosemide 20 mg/ Syringe 2 ml @ 4 mls/min 1945 ONCE IV 02/13/18 19:45 02/13/18 19:46 DC 02/13/18 19:41 4 MLS/MIN Sodium Chloride ([place] Nasal [place]) 225 sprays STK-MED ONCE .ROUTE 02/14/18 08:43 02/14/18 08:44 DC 02/14/18 08:55 225 SPRAYS Metronidazole 500 mg/Prmx 100 ml @ 100 mls/hr Q8H IV 02/14/18 14:00 02/24/18 13:59 02/17/18 06:21 100 MLS/HR Ciprofloxacin/ Dextrose 400 mg/ Prmx 200 ml @ 100 mls/hr Q12@1000,2200 IV 02/14/18 23:30 02/24/18 23:29 02/17/18 10:38 100 MLS/HR Ciprofloxacin/ Dextrose 400 mg/ Prmx 200 ml @ 100 mls/hr ONE ONCE IV 02/14/18 14:00 02/14/18 15:59 DC 02/14/18 18:27 100 MLS/HR Polyethylene (Miralax Powder Packet) 17 gm BID PO 02/15/18 09:30 03/17/18 09:29 02/17/18 10:37 17 GM Multivitamins (Flintstones Complete Tab) 1 tab QAM PO 02/16/18 08:00 03/18/18 07:59 02/17/18 09:15 1 TAB Lidocaine HCl (Viscous Lidocaine 2% Soln) 20 ml Q3H PRN MT 02/15/18 15:00 03/17/18 14:59 02/15/18 16:18 20 ML Subjective She appears much more comfortable. Attitude is quite good. Abdominal pains is less impressive. She remains cytopenic. Is been no overt bleeding. Edema particularly the facial edema is about the same. Review of Systems: Constitutional: Negative for night sweats, or fever Eyes: Negative for event change of vision ENT: Negative for epistaxis, nasal discharge, sore throat, or deafness Cardiovascular: Negative for chest pain, palpitations, dizziness, diaphoresis Respiratory: Negative for new shortness of breath,hemoptysis, or purulent cough Gastrointestinal: Negative for diarrhea, hematemesis, melena, nausea, vomiting , or dyspepsia Integumentary (skin): Negative for rash or jaundice discoloration Genitourinary: Negative for urinary frequency, hematuria, or dysuria Neurological: Negative for weakness, seizure activity, headache, or dizziness Lymphatic/Hematologic: Negative for petechiae, bleeding or new adenopathy Musculoskeletal: Negative for new joint or back pain Allergic/Immunologic: Negative for unusual rash or pruritis. Vital Signs Vital Signs Past 12 Hours Date Time Temp Pulse Resp B/P (MAP) Pulse Ox O2 Delivery O2 Flow Rate FiO2 02/17/18 10:30 Room Air 02/17/18 07:45 36.9 66 16 132/79 (96) 94 02/17/18 00:00 Room Air 02/16/18 23:35 36.8 56 16 142/80 (100) 95 Room Air Physical Exam Constitutional: vitals are stable. Eyes: Eyes are BINU EOMI without conjuctival erythema or icterus. ENT: External examination was negative for masses. Neck: Negative for masses or palpable thyromegaly Respiratory: Lung sounds were generally clear bilaterally Cardiovascular: Heart was RRR without significant murmur, gallops aoe rubs Gastrointestinal: No palpable hepatic or splenomegaly. The abdomen was soft with normal bowel sounds. At most there were just some mild tenderness in the right lower quadrant but certainly better than before Lymphatic system: there was no palpable peripheral lymphadenopathy Musculoskeletal System: The musculoskeletal system seemed concordant with age. Skin: The skin was negative for jaundice. Neurologic exam: The exam was negative for any focal findings. Deep tendon reflexes were equal and symmetrical. Psychiatric exam: Was essentially negative with normal mood and effect. Breast exam: Not done today Extremities: Negative for edema Constitutional: General Apperance: heathly-appearing Level of Distress: NAD Psychiatric: Mental Status: active & alert Orientation: oriented except where noted Lungs: Auscuitation: breath sounds normal Cardiovascular: Heart Auscultation: RRR Abdomen: Inspection & Palpation: soft, no tenderness, guarding & rebound Extremities: no edema Laboratory Last 24 Hours Test 02/16/18 14:15 02/16/18 18:58 02/17/18 05:35 White Blood Count 2.01 K/uL 1.96 K/uL Red Blood Count 3.36 M/uL 3.22 M/uL Hemoglobin 9.7 g/dL 9.1 g/dL Hematocrit 27.9 % 26.8 % Mean Corpuscular Volume 83.0 fL 83.2 fL Mean Corpuscular Hemoglobin 28.9 pg 28.3 pg Mean Corpuscular Hemoglobin Concent 34.8 g/dl 34.0 g/dl RDW Standard Deviation 54.4 fL 53.1 fL RDW Coefficient of Variation 18.1 % 17.6 % Platelet Count 14 K/uL 11 K/uL Platelet Estimate SIGNIFIC DECREASED SIGNIFIC DECREASED Neutrophils (%) (Auto) 52.1 % Lymphocytes (%) (Auto) 41.8 % Monocytes (%) (Auto) 4.1 % Eosinophils (%) (Auto) 2.0 % Basophils (%) (Auto) 0.0 % Neutrophils # (Auto) 1.02 K/uL Lymphocytes # (Auto) 0.82 K/uL Monocytes # (Auto) 0.08 K/uL Eosinophils # (Auto) 0.04 K/uL Basophils # (Auto) 0.00 K/uL Immature Granulocyte % (Auto) 0.0 % Immature Granulocyte # (Auto) 0.00 K/uL Ovalocytes 1+ Sodium Level 138 mmol/L Potassium Level 4.2 mmol/L Chloride Level 105 mmol/L Carbon Dioxide Level 27 mmol/L Anion Gap 7.0 mmol/L Blood Urea Nitrogen 16 mg/dl Creatinine 0.86 mg/dl Est Creatinine Clear Calc Drug Dose 93.3 ml/min Estimated GFR () 96.6 Estimated GFR (Non- 83.3 BUN/Creatinine Ratio 18.2 Random Glucose 88 mg/dl Calcium Level 8.4 mg/dl Lactate Dehydrogenase 336 U/L Assessment & Plan Appears much more comfortable. The pancytopenia continues. I would try to hold off on platelet transfusions. There has been no overt bleeding. Hemoglobin is 9.1. White cell number is low although is adequate with a reasonable ANC. I suspect discharge would be fairly imminent soon. I also suspect that her blood counts will recover in the next few days. She currently is scheduled to be treated this Friday but certainly that will not happen and I told her today that we will delay her next treatment until next Friday and the doses at that time will need to be reduced at least 20-30%. Appreciate hospitalist and consultants help.
[2018-02-17] MEDS: MoRPHine SULFATE 2 MG/ML CARP IV PRN (13:59)
--- NOTE | 2018-02-17 14:01 | Hospitalist Progress Note ---
Hospitalist Progress Note Date of Service Feb 17, 2018. (Gwendolyn Moreno ., RANDEEC) Subjective Pt evaluation today including: conversation w/ patient, physical exam, chart review, lab review, review of inpatient medication list Patient reports feeling well. She states she has about a 5/10 burning pain in the right side of her abdomen. She is tolerating food well without nausea or vomiting as long as she eats slowly and not too much. She states her swelling continues to improve but is not quite back to baseline. She still reports a cough that is sometimes productive but denies shortness of breath. She was able to ambulate the hallway without significant dyspnea on exertion, but does note she is more fatigued with this. She does report moving her bowels. The patient denies fevers, chills, sweats, chest pain, palpitations, claudication, wheezing, shortness of breath, nausea, vomiting, dysuria, hematuria, urinary retention, paralysis, weakness, numbness and tingling. Additional Comments: See HPI for pertinent positives and negatives. All other systems reviewed and negative. (Gwendolyn Moreno ., BRYON-C) Objective Vital Signs Date Time Temp Pulse Resp B/P (MAP) Pulse Ox O2 Delivery O2 Flow Rate FiO2 02/17/18 10:30 Room Air 02/17/18 07:45 36.9 66 16 132/79 (96) 94 02/17/18 00:00 Room Air 02/16/18 23:35 36.8 56 16 142/80 (100) 95 Room Air 02/16/18 19:53 36.8 59 18 136/80 (98) 100 Room Air 02/16/18 16:00 95 Room Air 02/16/18 15:34 36.6 65 16 127/76 (93) 95 Room Air (Gwendolyn Moreno .BRYON-C) Physical Exam Notes: General appearance: Well-developed, well-nourished, no apparent distress Head: Normocephalic, atraumatic Eyes: Normal inspection, PERRL, EOMI ENT: Normal ENT inspection, hearing grossly normal, pharynx normal Neck: Supple, no JVD, trachea midline Respiratory/Chest: +Mediport right chest. Lungs clear to auscultation, normal breath sounds, no respiratory distress Cardiovascular: Regular rate & rhythm, no gallop, no murmur Abdomen/GI: +RLQ TTP. Normal bowel sounds, soft Extremities/Musculoskeletal: +Non-pitting edema. Normal inspection, no calf tenderness Neurological/Psych: Alert, normal mood/affect, oriented x 3 Skin: Normal color, warm/dry, no rash (Gwendolyn Moreno ., RANDEEC) Laboratory Results Last 24 Hours Test 02/16/18 14:15 02/16/18 18:58 02/17/18 05:35 White Blood Count 2.01 K/uL 1.96 K/uL Red Blood Count 3.36 M/uL 3.22 M/uL Hemoglobin 9.7 g/dL 9.1 g/dL Hematocrit 27.9 % 26.8 % Mean Corpuscular Volume 83.0 fL 83.2 fL Mean Corpuscular Hemoglobin 28.9 pg 28.3 pg Mean Corpuscular Hemoglobin Concent 34.8 g/dl 34.0 g/dl RDW Standard Deviation 54.4 fL 53.1 fL RDW Coefficient of Variation 18.1 % 17.6 % Platelet Count 14 K/uL 11 K/uL Platelet Estimate SIGNIFIC DECREASED SIGNIFIC DECREASED Neutrophils (%) (Auto) 52.1 % Lymphocytes (%) (Auto) 41.8 % Monocytes (%) (Auto) 4.1 % Eosinophils (%) (Auto) 2.0 % Basophils (%) (Auto) 0.0 % Neutrophils # (Auto) 1.02 K/uL Lymphocytes # (Auto) 0.82 K/uL Monocytes # (Auto) 0.08 K/uL Eosinophils # (Auto) 0.04 K/uL Basophils # (Auto) 0.00 K/uL Immature Granulocyte % (Auto) 0.0 % Immature Granulocyte # (Auto) 0.00 K/uL Ovalocytes 1+ Sodium Level 138 mmol/L Potassium Level 4.2 mmol/L Chloride Level 105 mmol/L Carbon Dioxide Level 27 mmol/L Anion Gap 7.0 mmol/L Blood Urea Nitrogen 16 mg/dl Creatinine 0.86 mg/dl Est Creatinine Clear Calc Drug Dose 93.3 ml/min Estimated GFR () 96.6 Estimated GFR (Non- 83.3 BUN/Creatinine Ratio 18.2 Random Glucose 88 mg/dl Calcium Level 8.4 mg/dl Lactate Dehydrogenase 336 U/L (Gwendolyn Moreno ., PA-C) Assessment and Plan 42 y/o female with a history of breast cancer currently on chemo, Crohn's disease, anxiety and depression, PUD and GERD who [facility] with generalized non-pitting edema and acute anemia. Generalized edema--improving -Admit to med/surg -Possibly related to chemo and/or steroids, however pt states that she has been on her current chemo regimen since October w/o issue and has been on steroids since 2016 w/o edema -Continue Lasix 40 mg PO qd -Monitor I's & O's Pancytopenia--ongoing -Hgb 9.1 on 02/17, stable. S/p 2 units PRBC 02/15, 2 units PRBC 02/12 -PLT 11 on 02/17, down from 14. S/p 1 units PLT 02/15 -Heme/onc consulted, appreciate recs: Hold off on further transfusions, expect counts to come up in next few days. Pt had chemo scheduled for this Friday, will postpone one week and reduce the dose. Will recheck CBC this Friday and can transfuse if needed then. -Fecal occult blood negative N/V, abdominal pain, h/o Crohn's--improving -CT abdomen/pelvis 02/11 w/enteritis, stable from 01/20/18 study -GI consulted, appreciate recs: Continue with Budesonide. Cipro / Flagyl for possible typhlitis. Miralax 17 gm bid for constipation -Budesonide 9 mg PO qd and mesalamine 1 gm QID -Pt's home Colazal non-formulary -Stool studies negative, C. diff negative -Continue Cipro and Flagyl, day #4 -Continue oxycodone, tramadol, Dilaudid prn pain -Zofran, Compazine prn nausea Breast cancer on chemo -Oncology following as above Anxiety/depression -Continue Ativan 1 mg PO TID, Zoloft 100 mg PO qd PUD/GERD -Continue Protonix, Robinol 2 mg PO BID DVT prophylaxis -Chemical ppx held due to pancytopenia, on bleeding precautions -SCDs when pt can tolerate Code Status -Level I, FULL RESUSCITATION STATUS (Gwendolyn Moreno, KP) I personally interviewed and examined the patient. I agree with history of present illness and physical exam mentioned above, I also performed my own history taking and examination. Past medical history and review of system has been obtained by myself I reviewed all pertinent labs and studies Reviewed current medications I discussed and formulated of the assessment and plan mentioned above. Please refer to the Summary mentioned below. 42-year-old female with recurrent triple negative breast cancer currently on chemotherapy, presented to the hospital with abdominal pain, pancytopenia and bowel thickening suspicious for typhlitis Currently having platelets transfusion as needed, platelet level today is 11,000 , no transfusion is required, inspector technician/oncologist is on board, discussed the case with Dr. Hernandez and the patient Patient wanted to go to [place] during the weekend. Dr. Hernandez see platelets level is stable by tomorrow she can be discharged, he will see her in his office on Friday for another blood check, as she is not actively bleeding he is okay with her discharged even on a platelet level as low as 11,000 GI consult appreciated agreed with current plan, if patient is to be discharged she should be continued on oral Cipro/Flagyl, her abdominal pain significantly improved General Appearance: not in acute distress Eyes: normal Sclerae, extraocular muscle intact ENT: hearing grossly normal Neck: supple Respiratory/Chest: normal air entry bilateral ,no respiratory distress, no accessory muscle use Cardiovascular: regular rate, rhythm, no murmur Abdomen: Positive for tenderness all over the abdomen but improved from yesterday , soft, no masses Extremities: no edema Neurologic/Psychiatric: Awake alert oriented times place and person moves all extremities sensation intact cranial nerves II-12 appear to be intact Skin: normal color, warm/dry, no rash Jenny Márquez MD, [facility] hospitalist group (Jenny Byrd MD)
[2018-02-17 15:41] VITALS: BP 133/80; PULSE 64; TEMP 37; O2SAT 94
[2018-02-17 19:08] VITALS: BP 163/98; PULSE 78; TEMP 36.8; O2SAT 100
[2018-02-17 23:26] VITALS: BP 135/78; PULSE 62; TEMP 37; O2SAT 94
[2018-02-18] VITALS (7 sets, daily range): BP systolic 122–164; BP diastolic 71–89; PULSE 56–69; TEMP 36.8–37; O2SAT 95–100
[2018-02-18] MEDS: HYDROmorphone INJ 0.5 MG/0.5 ML SYR IV PRN (03:39)
[2018-02-18] MEDS: PROCHLORPERAZINE MALEATE 10 MG TAB PO SCH ×6 (03:40→23:56)
[2018-02-18] MEDS: METRONIDAZOLE / NSS 500 MG in PREMIXED NSS 100 ML IV SCH ×2 (05:45→13:13)
[2018-02-18 07:00] LABS: HEMATOCRIT 25.6 % (37-47); HEMOGLOBIN 8.8 g/dL (12.0-16.0); MEAN CELL VOLUME 82.6 fL (80-100); MEAN CORPUSCULAR HEMOGLOBIN 28.4 pg (25-34); MEAN CORPUSCULAR HGB CONC 34.4 g/dl (32-36); PLATELET COUNT 10 K/uL (130-400); RED CELL DISTRIBUTION WIDTH CV 17.3 % (11.5-14.5); RED CELL DISTRIBUTION WIDTH SD 52.3 fL (36.4-46.3); WHITE BLOOD COUNT 1.83 K/uL (4.8-10.8)
[2018-02-18 07:06] LABS: BASO % 0.5 %; BASO ABS # 0.01 K/uL (0-0.2); EOS % 3.8 %; EOS ABS # 0.07 K/uL (0-0.5); IG# 0.01 K/uL (0.00-0.02); LYMPH % 45.9 %; LYMPH ABS # 0.84 K/uL (1.2-3.4); MONO % 3.8 %; MONO ABS # 0.07 K/uL (0.11-0.59); NEUT % 45.5 %; NEUT ABS # 0.83 K/uL (1.4-6.5)
[2018-02-18 07:16] LABS: CALCIUM 8.3 mg/dl (8.5-10.1); CREATININE 0.89 mg/dl (0.60-1.20); POTASSIUM 4.1 mmol/L (3.5-5.1)
[2018-02-18] MEDS: FUROSEMIDE 40 MG TAB PO SCH (08:30)
[2018-02-18] MEDS: GLYCOPYRROLATE 1 MG TAB PO SCH ×2 (08:30→21:01)
[2018-02-18] MEDS: MESALAMINE 250 MG CAPCR PO SCH ×4 (08:30→21:00)
[2018-02-18] MEDS: FLINTSTONES COMPLETE CHEWABLE TAB PO SCH (08:30)
[2018-02-18] MEDS: SERTRALINE HCL 100 MG TAB PO SCH (08:30)
[2018-02-18] MEDS: PANTOprazole SOD 40 MG TAB PO SCH (08:30)
[2018-02-18] MEDS: BUDESONIDE EC 3 MG CAP PO SCH (08:30)
[2018-02-18] MEDS: METHYLPHENIDATE HCL 10 MG TAB PO SCH ×2 (08:31→20:59)
[2018-02-18] MEDS: POLYETHYLENE (MIRALAX) 17 GM PACK PO SCH ×2 (08:31→20:59)
[2018-02-18] MEDS: LORAZEPAM 1 MG TAB PO SCH ×3 (08:36→21:00)
[2018-02-18] MEDS: OXYCODONE HCL IR 5 MG TAB (IMMEDIATE RELEASE) PO PRN ×3 (08:37→21:16)
[2018-02-18] MEDS: CIPROFLOXACIN / D5W 400 MG in PREMIXED IN D5W 200 ML IV SCH (10:53)
[2018-02-18 13:25] LABS: INR 1.1 (0.9-1.1)
[2018-02-18 13:33] LABS: PTT PATIENT 63.3 SECONDS (21.0-31.0)
--- NOTE | 2018-02-18 16:35 | Hospitalist Progress Note ---
Hospitalist Progress Note Date of Service Feb 18, 2018. (Gwendolyn Moreno ., RANDEEC) Subjective Pt evaluation today including: conversation w/ patient, physical exam, chart review, lab review, conversation w/ micro[employer] infrastructure consultant (spoke with Dr. Hernandez), review of inpatient medication list Patient reports feeling well. She reports 4/10 abdominal pain and is otherwise feeling well. The patient denies fevers, chills, sweats, chest pain, palpitations, claudication, cough, wheezing, shortness of breath, nausea, vomiting, dysuria, hematuria, urinary retention, paralysis, weakness, numbness and tingling. Additional Comments: See HPI for pertinent positives and negatives. All other systems reviewed and negative. (Gwendolyn Moreno ., RANDEEC) Objective Vital Signs Date Time Temp Pulse Resp B/P (MAP) Pulse Ox O2 Delivery O2 Flow Rate FiO2 02/18/18 15:08 36.8 63 17 122/71 (88) 97 Room Air 02/18/18 09:00 Room Air 02/18/18 08:55 96 Room Air 02/18/18 07:51 37.0 61 16 142/82 (102) 96 Room Air 02/18/18 03:30 37.0 56 18 164/89 (114) 95 Room Air 02/18/18 00:15 Room Air 02/17/18 23:26 37.0 62 18 135/78 (97) 94 Room Air 02/17/18 20:10 Room Air 02/17/18 19:08 36.8 78 19 163/98 (119) 100 Room Air (Gwendolyn Moreno, RANDEEC) Physical Exam Notes: General appearance: Well-developed, well-nourished, no apparent distress Head: Normocephalic, atraumatic Eyes: Normal inspection, PERRL, EOMI ENT: Normal ENT inspection, hearing grossly normal, pharynx normal Neck: Supple, no JVD, trachea midline Respiratory/Chest: +Mediport right chest. Lungs clear to auscultation, normal breath sounds, no respiratory distress Cardiovascular: Regular rate & rhythm, no gallop, no murmur Abdomen/GI: +RLQ mildly TTP. Normal bowel sounds, soft Extremities/Musculoskeletal: +Non-pitting edema. Normal inspection, no calf tenderness Neurological/Psych: Alert, normal mood/affect, oriented x 3 Skin: Normal color, warm/dry, no rash (Gwendolyn Moreno ., KP) Laboratory Results Last 24 Hours Test 02/18/18 06:05 02/18/18 12:54 White Blood Count 1.83 K/uL Red Blood Count 3.10 M/uL Hemoglobin 8.8 g/dL Hematocrit 25.6 % Mean Corpuscular Volume 82.6 fL Mean Corpuscular Hemoglobin 28.4 pg Mean Corpuscular Hemoglobin Concent 34.4 g/dl Platelet Count 10 K/uL Neutrophils (%) (Auto) 45.5 % Lymphocytes (%) (Auto) 45.9 % Monocytes (%) (Auto) 3.8 % Eosinophils (%) (Auto) 3.8 % Basophils (%) (Auto) 0.5 % Neutrophils # (Auto) 0.83 K/uL Lymphocytes # (Auto) 0.84 K/uL Monocytes # (Auto) 0.07 K/uL Eosinophils # (Auto) 0.07 K/uL Basophils # (Auto) 0.01 K/uL RDW Standard Deviation 52.3 fL RDW Coefficient of Variation 17.3 % Immature Granulocyte % (Auto) 0.5 % Immature Granulocyte # (Auto) 0.01 K/uL Platelet Estimate SIGNIFIC DECREASED Ovalocytes 1+ Sodium Level 137 mmol/L Potassium Level 4.1 mmol/L Chloride Level 104 mmol/L Carbon Dioxide Level 28 mmol/L Anion Gap 5.0 mmol/L Blood Urea Nitrogen 15 mg/dl Creatinine 0.89 mg/dl Est Creatinine Clear Calc Drug Dose 90.2 ml/min Estimated GFR () 92.7 Estimated GFR (Non- 79.9 BUN/Creatinine Ratio 16.8 Random Glucose 88 mg/dl Calcium Level 8.3 mg/dl Prothrombin Time 11.1 SECONDS Prothromb Time International Ratio 1.1 Activated Partial Thromboplast Time 63.3 SECONDS Partial Thromboplastin Ratio 2.4 (Gwendolyn Moreno .KP) Assessment and Plan 42 y/o female with a history of breast cancer currently on chemo, Crohn's disease, anxiety and depression, PUD and GERD who [facility] with generalized non-pitting edema and acute anemia. Generalized edema--resolving -Admit to med/surg -Possibly related to chemo and/or steroids, however pt states that she has been on her current chemo regimen since October w/o issue and has been on steroids since 2016 w/o edema -Continue Lasix 40 mg PO qd -Monitor I's & O's Pancytopenia--worsening -Hgb 8.8 on 02/18, stable from 9.1. S/p 2 units PRBC 02/15, 2 units PRBC 02/12 -PLT 10 on 02/18, down from 11. S/p 1 units PLT 02/15 -ANC down to 0.83 this am. PTT 63.3 -Heme/onc consulted, appreciate recs: Spoke with Dr. Hernandez, will keep pt another day to monitor due to worsening platelets and ANC. -Fecal occult blood negative -Check fibrinogen and fibrin degrad products to r/o DIC N/V, abdominal pain, h/o Crohn's--improving -CT abdomen/pelvis 02/11 w/enteritis, stable from 01/20/18 study -GI consulted, appreciate recs: Continue with Budesonide. Cipro / Flagyl for possible typhlitis. Miralax 17 gm bid for constipation -Budesonide 9 mg PO qd and mesalamine 1 gm QID -Pt's home Colazal non-formulary -Stool studies negative, C. diff negative -Continue Cipro and Flagyl, day #5 -Continue oxycodone, tramadol, Dilaudid prn pain -Zofran, Compazine prn nausea Breast cancer on chemo -Oncology following as above Anxiety/depression -Continue Ativan 1 mg PO TID, Zoloft 100 mg PO qd PUD/GERD -Continue Protonix, Robinol 2 mg PO BID DVT prophylaxis -Chemical ppx held due to pancytopenia, on bleeding precautions -SCDs when pt can tolerate Code Status -Level I, FULL RESUSCITATION STATUS (Gwendolyn Moreno ., PA-C) PA Physician Supervision Note: I interviewed and examined the patient. Discussed with Gwendolyn Moreno PAC and agree with findings and plan as documented in the note. Any exceptions or clarifications are listed here: None Patient is looking much better than her laboratory numbers. She was most concerned about and some insomnia we did discuss using Ambien Temperature 37 0 pulse 56 respiration 18 BP 164/89 she is awake alert appropriate her cardiac exam is regular lungs are clear next This patient has pancytopenia with recent history of breast carcinoma and treatment of such we will continue to offer supportive care transfusion as needed attempt to improve her sleep. She is maintained on antibiotics for typhlitis Documented By: Mookie Ramirez (Mookie Ramirez M.D.)
[2018-02-18 18:08] LABS: PTT PATIENT 29.4 SECONDS (21.0-31.0)
[2018-02-18] MEDS ORDERED: CONSULT PHARMACY STA (19:47)
[2018-02-18] MEDS ORDERED: ZOLPIDEM TARTRATE 10 MG TAB PO PRN (20:00)
[2018-02-18] MEDS: METRONIDAZOLE 500 MG TAB PO SCH (21:00)
[2018-02-18] MEDS: CIPROFLOXACIN 500 MG TAB PO SCH (21:01)
[2018-02-19] MEDS: PROCHLORPERAZINE MALEATE 10 MG TAB PO SCH ×3 (03:31→12:56)
[2018-02-19] MEDS: OXYCODONE HCL IR 5 MG TAB (IMMEDIATE RELEASE) PO PRN (06:50)
[2018-02-19 07:50] VITALS: BP 144/86; PULSE 62; TEMP 36.6; O2SAT 98
[2018-02-19 08:00] VITALS: O2SAT 98
[2018-02-19] MEDS: METHYLPHENIDATE HCL 10 MG TAB PO SCH (08:00)
[2018-02-19] MEDS: POLYETHYLENE (MIRALAX) 17 GM PACK PO SCH (08:09)
[2018-02-19] MEDS: PANTOprazole SOD 40 MG TAB PO SCH (08:09)
[2018-02-19] MEDS: LORAZEPAM 1 MG TAB PO SCH ×2 (08:09→12:59)
[2018-02-19] MEDS: SERTRALINE HCL 100 MG TAB PO SCH (08:09)
[2018-02-19] MEDS: BUDESONIDE EC 3 MG CAP PO SCH (08:10)
[2018-02-19] MEDS: MESALAMINE 250 MG CAPCR PO SCH (08:10)
[2018-02-19] MEDS: FLINTSTONES COMPLETE CHEWABLE TAB PO SCH (08:10)
[2018-02-19] MEDS: CIPROFLOXACIN 500 MG TAB PO SCH (08:10)
[2018-02-19] MEDS: METRONIDAZOLE 500 MG TAB PO SCH ×2 (08:10→12:56)
[2018-02-19] MEDS: FUROSEMIDE 40 MG TAB PO SCH (08:10)
[2018-02-19] MEDS: GLYCOPYRROLATE 1 MG TAB PO SCH (08:10)
[2018-02-19 08:17] LABS: INR 1.1 (0.9-1.1)
[2018-02-19 08:23] LABS: HEMATOCRIT 26.1 % (37-47); HEMOGLOBIN 9.1 g/dL (12.0-16.0); MEAN CELL VOLUME 83.4 fL (80-100); MEAN CORPUSCULAR HEMOGLOBIN 29.1 pg (25-34); MEAN CORPUSCULAR HGB CONC 34.9 g/dl (32-36); PLATELET COUNT 11 K/uL (130-400); RED CELL DISTRIBUTION WIDTH SD 51.6 fL (36.4-46.3); WHITE BLOOD COUNT 1.67 K/uL (4.8-10.8)
[2018-02-19 08:30] LABS: CALCIUM 8.5 mg/dl (8.5-10.1); CREATININE 1.04 mg/dl (0.60-1.20); POTASSIUM 4.1 mmol/L (3.5-5.1)
[2018-02-19 08:34] LABS: PTT PATIENT 46.2 SECONDS (21.0-31.0)
[2018-02-19 11:21] VITALS: BP 146/87; PULSE 65; TEMP 37; O2SAT 99
[2018-02-19] MEDS ORDERED: AMB10 PO (12:07)
--- NOTE | 2018-02-19 12:14 | Discharge Instructions ---
Discharge Instructions Date of Service Feb 19, 2018. Admission Reason for Admission: Generlized Edema,Hemoglobin Of 7.1 Discharge Discharge Diagnosis / Problem: pancytopenia ( low blood counts ) Discharge Goals Goal(s): Diagnostic testing, Therapeutic intervention Activity Recommendations Activity Limitations: as noted below Lifting Limitations: gradually increase as tolerated Please return to your home regiment for medicines. please call or report to ER if you have bruising or bleeding or headache, or any other concern for illness . Current Hospital Diet Patient's current hospital diet: Regular Diet Discharge Diet Recommended Diet: Regular Diet Pending Studies Studies pending at discharge: no Medical Emergencies . Who to Call and When: Medical Emergencies: If at any time you feel your situation is an emergency, please call 911 immediately. . Non-Emergent Contact Non-Emergency issues call your: Primary Care Provider, Oncologist Call Non-Emergent contact if: temperature is above 101, your pain is unusual for you . . "Provider Documentation" section prepared by Mookie Ramirez. .
[2018-02-19] MEDS ORDERED: OXYC1TAB3 PO (12:15)
--- NOTE | 2018-02-19 12:25 | Hematology/Oncology Prog Note ---
Hematology/Onc Progress Note Date of Service Feb 19, 2018. Diagnoses Metastatic triple negative breast carcinoma Pancytopenia secondary to therapy History of granulomatous bowel disease Generalized edema probably prednisone related Medications Medications Administered Medications (Trade) Dose Ordered Sig/Katherine Route Start Time Stop Time Status Last Admin Dose Admin Magnesium Hydroxide (Milk Of Magnesia Susp) 30 ml Q6H PRN PO 02/12/18 16:15 03/14/18 16:14 02/15/18 07:14 30 ML Ondansetron HCl (Zofran Inj) 4 mg Q6H PRN IV 02/12/18 16:15 02/14/18 13:59 DC 02/13/18 08:22 4 MG Furosemide (Lasix Tab) 40 mg DAILY PO 02/13/18 08:00 03/15/18 07:59 02/19/18 08:10 40 MG Lorazepam (Ativan Tab) 1 mg TID PO 02/12/18 20:00 03/14/18 19:59 02/19/18 08:09 1 MG Ondansetron HCl (Zofran Tab) 8 mg PRN PRN PO 02/12/18 16:15 03/14/18 16:14 02/12/18 22:50 8 MG Oxycodone HCl (Roxicodone Immediate Rel Tab) 10 mg Q6H PRN PO 02/12/18 16:15 02/26/18 16:14 02/19/18 06:50 10 MG Pantoprazole Sodium (Protonix Tab) 40 mg QAM PO 02/13/18 08:00 03/15/18 07:59 02/19/18 08:09 40 MG Prochlorperazine Maleate (Compazine Tab) 10 mg Q4H PO 02/12/18 20:00 03/14/18 19:59 02/19/18 08:09 10 MG Sertraline HCl (Zoloft Tab) 100 mg DAILY PO 02/13/18 08:00 03/15/18 07:59 02/19/18 08:09 100 MG Glycopyrrolate (Robinul Tab) 2 mg BID PO 02/12/18 20:00 03/14/18 19:59 02/19/18 08:10 2 MG Sertraline HCl (Zoloft Tab) 100 mg 1609 ONCE PO 02/12/18 16:09 02/12/18 16:15 DC 02/12/18 17:02 100 MG Furosemide 40 mg/ Syringe 4 ml @ 4 mls/min ONE ONCE IV 02/12/18 16:45 02/12/18 16:46 DC 02/12/18 19:37 4 MLS/MIN Lorazepam (Ativan Tab) 1 mg TODAY@1700 PO 02/12/18 17:00 02/12/18 18:00 DC 02/12/18 17:19 1 MG Heparin Sodium (Porcine) (Heparin 100 Unit/ml 5ml Flush) 5 ml STK-MED ONCE .ROUTE 02/12/18 17:11 02/12/18 17:12 DC 02/12/18 17:11 5 ML Heparin Sodium (Porcine) (Heparin 100 Unit/ml 5ml Flush) 5 ml PRN PRN IV 02/12/18 17:45 03/14/18 17:44 02/18/18 06:59 5 ML Morphine Sulfate (MoRPHine SULFATE INJ) 1 mg Q4H PRN IV 02/12/18 18:00 02/26/18 17:59 02/17/18 13:59 1 MG Hydromorphone HCl (Dilaudid Inj) 0.5 mg Q4H PRN IV 02/12/18 20:00 02/26/18 19:59 02/18/18 03:39 0.5 MG Ondansetron HCl (Zofran Inj) 4 mg Q4H PRN IV 02/12/18 21:45 03/14/18 21:44 02/14/18 19:48 4 MG Mesalamine (Pentasa Controlled Rel Cap) 500 mg QID PO 02/13/18 09:15 02/13/18 16:16 DC 02/13/18 11:27 500 MG Budesonide (Entocort EC Cap) 9 mg QAM PO 02/13/18 10:20 03/15/18 10:19 02/19/18 08:10 9 MG Mesalamine (Pentasa Controlled Rel Cap) 1,000 mg QID PO 02/13/18 17:00 03/15/18 09:14 Future Hold 02/19/18 08:10 1,000 MG Furosemide 20 mg/ Syringe 2 ml @ 4 mls/min 194 ONCE IV 02/13/18 19:45 02/13/18 19:46 DC 02/13/18 19:41 4 MLS/MIN Sodium Chloride ([place] Nasal [place]) 225 sprays STK-MED ONCE .ROUTE 02/14/18 08:43 02/14/18 08:44 DC 02/14/18 08:55 225 SPRAYS Metronidazole 500 mg/Prmx 100 ml @ 100 mls/hr Q8H IV 02/14/18 14:00 02/18/18 16:38 DC 02/18/18 13:13 100 MLS/HR Ciprofloxacin/ Dextrose 400 mg/ Prmx 200 ml @ 100 mls/hr Q12@1000,2200 IV 02/14/18 23:30 02/18/18 16:38 DC 02/18/18 10:53 100 MLS/HR Ciprofloxacin/ Dextrose 400 mg/ Prmx 200 ml @ 100 mls/hr ONE ONCE IV 02/14/18 14:00 02/14/18 15:59 DC 02/14/18 18:27 100 MLS/HR Polyethylene (Miralax Powder Packet) 17 gm BID PO 02/15/18 09:30 03/17/18 09:29 02/19/18 08:09 17 GM Multivitamins (Flintstones Complete Tab) 1 tab QAM PO 02/16/18 08:00 03/18/18 07:59 02/19/18 08:10 1 TAB Lidocaine HCl (Viscous Lidocaine 2% Soln) 20 ml Q3H PRN MT 02/15/18 15:00 03/17/18 14:59 02/15/18 16:18 20 ML Ciprofloxacin (Cipro Tab) 500 mg BID PO 02/18/18 20:00 02/28/18 19:59 02/19/18 08:10 500 MG Metronidazole (Flagyl Tab) 500 mg TID PO 02/18/18 20:00 02/28/18 19:59 02/19/18 08:10 500 MG Zolpidem Tartrate (Ambien Tab) 10 mg HS PRN PO 02/18/18 20:00 03/20/18 19:59 02/18/18 21:00 10 MG Subjective She is very anxious to be discharged. There is been no overt bleeding. She remains pancytopenic. She has been afebrile. Review of Systems: Constitutional: Negative for night sweats, or fever Eyes: Negative for event change of vision ENT: Negative for epistaxis, nasal discharge, sore throat, or deafness Cardiovascular: Negative for chest pain, palpitations, dizziness, diaphoresis Respiratory: Negative for new shortness of breath,hemoptysis, or purulent cough Gastrointestinal: Negative for diarrhea, hematemesis, melena, nausea, vomiting , or dyspepsia Integumentary (skin): Negative for rash or jaundice discoloration Genitourinary: Negative for urinary frequency, hematuria, or dysuria Neurological: Negative for weakness, seizure activity, headache, or dizziness Lymphatic/Hematologic: Negative for petechiae, bleeding or new adenopathy Musculoskeletal: Negative for new joint or back pain Allergic/Immunologic: Negative for unusual rash or pruritis. Vital Signs Vital Signs Past 12 Hours Date Time Temp Pulse Resp B/P (MAP) Pulse Ox O2 Delivery O2 Flow Rate FiO2 02/19/18 11:21 37.0 65 18 146/87 (106) 99 Room Air 02/19/18 08:00 98 Room Air 02/19/18 07:50 36.6 62 18 144/86 (105) 98 Room Air Physical Exam Constitutional: vitals are stable. Eyes: Eyes are BINU EOMI without conjuctival erythema or icterus. ENT: External examination was negative for masses. Neck: Negative for masses or palpable thyromegaly Respiratory: Lung sounds were generally clear bilaterally Cardiovascular: Heart was RRR without significant murmur, gallops aoe rubs Gastrointestinal: No palpable hepatic or splenomegaly. The abdomen was soft with normal bowel sounds. Lymphatic system: there was no palpable peripheral lymphadenopathy Musculoskeletal System: The musculoskeletal system seemed concordant with age. Skin: The skin was negative for jaundice. Neurologic exam: The exam was negative for any focal findings. Deep tendon reflexes were equal and symmetrical. Psychiatric exam: Was essentially negative with normal mood and effect. Breast exam: Not done today Extremities: Negative for edema. Constitutional: General Apperance: heathly-appearing Level of Distress: NAD Psychiatric: Mental Status: active & alert Orientation: oriented except where noted Lungs: Auscuitation: breath sounds normal Cardiovascular: Heart Auscultation: RRR Abdomen: Inspection & Palpation: soft, no tenderness, guarding & rebound Extremities: no edema Laboratory Last 24 Hours Test 02/18/18 12:54 02/18/18 17:40 02/19/18 07:40 02/19/18 11:53 Prothrombin Time 11.1 SECONDS 10.9 SECONDS 11.1 SECONDS Prothromb Time International Ratio 1.1 1.0 1.1 Activated Partial Thromboplast Time 63.3 SECONDS 29.4 SECONDS 46.2 SECONDS Partial Thromboplastin Ratio 2.4 1.1 1.8 White Blood Count 1.67 K/uL Red Blood Count 3.13 M/uL Hemoglobin 9.1 g/dL Hematocrit 26.1 % Mean Corpuscular Volume 83.4 fL Mean Corpuscular Hemoglobin 29.1 pg Mean Corpuscular Hemoglobin Concent 34.9 g/dl RDW Standard Deviation 51.6 fL RDW Coefficient of Variation 17.0 % Platelet Count 11 K/uL Platelet Estimate SIGNIFIC DECREASED Fibrinogen 349 mg/dl Fibrin Degradation Products 10-40 mcg/ml Sodium Level 137 mmol/L Potassium Level 4.1 mmol/L Chloride Level 103 mmol/L Carbon Dioxide Level 26 mmol/L Anion Gap 8.0 mmol/L Blood Urea Nitrogen 15 mg/dl Creatinine 1.04 mg/dl Est Creatinine Clear Calc Drug Dose 77.3 ml/min Estimated GFR () 76.7 Estimated GFR (Non- 66.2 BUN/Creatinine Ratio 14.0 Random Glucose 109 mg/dl Calcium Level 8.5 mg/dl Assessment & Plan She remains pancytopenic. Review of the peripheral smear is really unremarkable other than occasional fragmented red cell but they are very scarce. Platelet count remains decreased. White cell morphology appears normal. Again her blood counts going into chemotherapy were quite good and cytopenias have really never been an issue for Arely. I do not believe a bone marrow biopsy is going to teach us anything at this point however this may need to be considered as time goes by and if her counts do not recover. Conversations today with Dr. Ramirez considered the possibility of corollary medicines that she is on contributing to the cytopenias and drugs that either should be held or switch to something that might be less indictable for provoking cytopenias. She will most likely be discharged today. I have advised her and she is well aware that if she develops a headache or bleeding beyond bruising that she needs to return to the hospital immediately. We will asked for a CBC on Friday. She currently has a date to visit with us next Friday in clinic. Appreciate everyone's help.
--- NOTE | 2018-02-19 12:26 | Discharge Summary ---
Discharge Summary Date of Service Feb 19, 2018. Discharge Summary Admission Date: Feb 12, 2018 at 14:57 Discharge Date: Feb 19, 2018 Discharge Disposition: Home Principal Diagnosis: Pancytopenia Problems/Secondary Diagnoses: (1) Port-a-cath in place Status: Chronic\ Possible typhlitis, breast cancer currently on chemo, Crohn's disease, anxiety and depression, PUD and GERD Immunizations: Have You Had Influenza Vaccine: No History of Tetanus Vaccine?: Yes History of Pneumococcal: No History of Hepatitis B Vaccine: Unknown Procedures: ABDOMEN 2VIEW W/PA CHEST RTN CLINICAL HISTORY: evaluaton for SBO bowel obstruction COMPARISON STUDY: 02/11/2018 FINDINGS: lungs are clear. Bowel pattern currently is nonobstructive. Mild increase in fecal load throughout the colon. No evidence of bowel distention. . IMPRESSION: 1. Negative chest. 2. Nonobstructive bowel pattern. 3. Mild increase in fecal load throughout the colon. Consultations: Gastroenterology Hematology/oncology Medication Reconciliation New Medications: Zolpidem Tartrate (Zolpidem Tartrate) 10 Mg Tab 10 MG PO HS PRN for Sleep, #20 TAB Continued Medications: Balsalazide (Colazal) 750 Mg Cap 2250 MG PO BIDM, CAP Furosemide (Lasix) 40 Mg Tab 40 MG PO DAILY, TAB Glycopyrrolate (Glycopyrrolate) 2 Mg Tab 2 MG PO BID Lorazepam (Ativan) 1 Mg Tab 1 MG PO TID, TAB Multivit/Min/Iron/Fol Ac/Pren ( Vitamin) Tab 1 TAB PO DAILY, TAB Ondansetron Hcl (Zofran) 8 Mg Tab 8 MG PO PRN PRN for Nausea, TAB Oxycodone Ir (Roxicodone Ir) 5 Mg Tab 10 MG PO Q6H PRN for Pain, #20 TAB (This prescription has been renewed) Pantoprazole (Protonix) 40 Mg Tab 40 MG PO QAM, #30 TAB Prednisone (Prednisone) 20 Mg Tab 20 MG PO, TAB pt takes in case of flare up Prochlorperazine Maleate (Compazine) 10 Mg Tab 10 MG PO Q4H, TAB NAUSEA/VOMITING Promethazine Hcl (Phenergan Suppository) 25 Mg Supp 25 MG RI Q6H PRN for Nausea, #10 SUPP Sertraline (Zoloft) 100 Mg Tab 100 MG PO DAILY, TAB Tramadol (Ultram) 50 Mg Tab 100 MG PO TID PRN for Pain, TAB Discontinued Medications: Methylphenidate (Ritalin) 5 Mg Tab 5 MG PO BID, TAB Discharge Exam The patient reports feeling better. She states her abdominal pain is improved and she denies any nausea or vomiting. Her swelling is about resolved. The patient denies fevers, chills, sweats, chest pain, palpitations, claudication, cough, wheezing, shortness of breath, nausea, vomiting, abdominal pain, dysuria , hematuria, urinary retention, paralysis, weakness, numbness and tingling. Constitutional: No fever, No chills, No sweats Eyes: No worsening of vision, No eye pain, No diplopia ENT: No hearing loss, No nasal symptoms, No trouble swallowing Respiratory: No cough, No wheezing, No shortness of breath Cardiovascular: No chest pain, No claudication, No palpitations Abdomen: +Mild abdominal pain. No nausea, No vomiting Musculoskeletal: No joint pain, No muscle pain, No swelling Genitourinary - Female: No dysuria, No urinary retention, No hematuria Neurologic: No paralysis, No weakness, No numbness/tingling Integumentary: No rash, No itch, No color change General appearance: Well-developed, well-nourished, no apparent distress Head: Normocephalic, atraumatic Eyes: Normal inspection, PERRL, EOMI ENT: Normal ENT inspection, hearing grossly normal, pharynx normal Neck: Supple, no JVD, trachea midline Respiratory/Chest: +Mediport right chest. Lungs clear to auscultation, normal breath sounds, no respiratory distress Cardiovascular: Regular rate & rhythm, no gallop, no murmur Abdomen/GI: +RLQ very mildly TTP. Normal bowel sounds, soft Extremities/Musculoskeletal: Normal inspection, no calf tenderness, no pedal edema Neurological/Psych: Alert, normal mood/affect, oriented x 3 Skin: Normal color, warm/dry, no rash Hospital Course 42 y/o female with a history of breast cancer currently on chemo, Crohn's disease, anxiety and depression, PUD and GERD who [facility] with generalized non-pitting edema and acute anemia. Generalized edema--resolved -Admit to med/surg -Possibly related to chemo and/or steroids, however pt states that she has been on her current chemo regimen since October w/o issue and has been on steroids since 2016 w/o edema -Continue Lasix 40 mg PO qd -Monitor I's & O's Pancytopenia--stable -Hgb 9.1 on 02/19, stable from 8.8. S/p 2 units PRBC 02/15, 2 units PRBC 02/12 -PLT 11 on 02/19, stable from 10. S/p 1 units PLT 02/15 -ANC down to 0.83 -Heme/onc consulted, appreciate recs: Spoke with Dr. Hernandez. Ok to d/c home. Pt instructed to return if any signs of bleeding or prolonged headache. Will recheck CBC on Friday in the office. Stop antibiotics. -Fecal occult blood negative -Fibrinogen WNL, fibrin degradation products elevated at 10-40 -Mesalamine started inpatient as pt's Colazal was non-formulary. This in rare cases can cause pancytopenia. Will stop all new meds including the mesalamine and budesonide as pt became progressively more pancytopenic while inpatient. Return to home regimen and monitor closely outpatient N/V, abdominal pain, h/o Crohn's--resolving -CT abdomen/pelvis 02/11 w/enteritis, stable from 01/20/18 study -GI consulted, appreciate recs: Continue with Budesonide. Cipro / Flagyl for possible typhlitis. Miralax 17 gm bid for constipation -D/C budesonide and mesalamine as not clear what caused pancytopenia, resume pt' s home Colazal at discharge -Stool studies negative, C. diff negative -Completed 6 days Cipro and Flagyl, will d/c per heme/onc -Continue oxycodone, tramadol, Dilaudid prn pain -Zofran, Compazine prn nausea Breast cancer on chemo -Oncology following as above Anxiety/depression -Continue Ativan 1 mg PO TID, Zoloft 100 mg PO qd PUD/GERD -Continue Protonix, Robinol 2 mg PO BID DVT prophylaxis -Chemical ppx held due to pancytopenia, on bleeding precautions -SCDs when pt can tolerate Code Status -Level I, FULL RESUSCITATION STATUS PA Physician Supervision Note: I interviewed and examined the patient. Discussed with Gwendolyn Moreno PAC and agree with findings and plan as documented in the note. Any exceptions or clarifications are listed here: None I personally spoke with Dr. Hernandez and the patient at the bedside we grafted a plan for her to be discharged home with close outpatient follow-up attending to her blood counts. Her vitals are stable however her platelet count remains low as well as her total white blood cell count which likely continues to remain in the neutropenic range I also discussed the need for use of antibiotics in this patient Dr. Hernandez did not feel that should be the case We also discussed stopping her steroids which we will do patient be discharged home with close follow-up with outpatient hematology oncology and encouraging close follow-up with her gastroenterology Documented By: Mookie Ramirez Total Time Spent: Greater than 30 minutes This includes examination of the patient, discharge planning, medication reconciliation, and communication with other providers. Discharge Instructions Please refer to the electronic Patient Visit Report (Discharge Instructions) for additional information. Additional Copies To Leonidas Salter M.D.
[2018-02-19 12:47] VITALS: BP 146/87; PULSE 65; TEMP 37; O2SAT 99
== END 2018-02-19 13:28 | disposition home or self-care (01) | DRG 809 ==
LOC: C.4E 14:57
PROVIDERS: ADMIT Family Medicine; ATTEND Internal Medicine
DX: D61.810 Antineoplastic chemotherapy induced pancytopenia (principal); K50.90 Crohn's disease, unspecified, without complications; R60.1 Generalized edema; K37 Unspecified appendicitis; D64.81 Anemia due to antineoplastic chemotherapy; D69.59 Other secondary thrombocytopenia; T45.1X5A Adverse effect of antineoplastic and immunosuppressive drugs, initial encounter; T38.0X5A Adverse effect of glucocorticoids and synthetic analogues, initial encounter; C50.919 Malignant neoplasm of unspecified site of unspecified female breast; K59.00 Constipation, unspecified; F32.9 Major depressive disorder, single episode, unspecified; F41.9 Anxiety disorder, unspecified; K27.9 Peptic ulcer, site unspecified, unspecified as acute or chronic, without hemorrhage or perforation; K21.9 Gastro-esophageal reflux disease without esophagitis; Z79.52 Long term (current) use of systemic steroids; Z79.899 Other long term (current) drug therapy; Z91.040 Latex allergy status; Z91.048 Other nonmedicinal substance allergy status; Z88.0 Allergy status to penicillin; Z88.2 Allergy status to sulfonamides; Z88.8 Allergy status to other drugs, medicaments and biological substances; Z90.12 Acquired absence of left breast and nipple; Z87.891 Personal history of nicotine dependence

== ENCOUNTER 2018-04-14 12:30 | Observation (INO) | payer OTHER ==
[~2018-04-14] VITALS: Ht 172.7 cm; Wt 70.5 kg
[~2018-04-14 12:30] MED LIST changes: +AMB10 PO; -CLZ750 PO; -METH5TAB4 PO; +PROC10TA PO; -PROC1TAB5 PO
[2018-04-14] MEDS ORDERED: HYDROmorphone INJ 1 MG/ML SYR IV STA (12:51)
[2018-04-14] MEDS ORDERED: ONDANSETRON INJ 2 MG/ML 2 ML VIAL IV STA (12:51)
--- NOTE | 2018-04-14 12:57 | EMERGENCY ROOM VISIT NOTE ---
History Report prepared by Jessenia: Vik Rossi Under the Supervision of: Dr. Juan A Begum M.D. First contact with patient: 12:45 Chief Complaint: HEADACHE Stated Complaint: SLURRING, HEARING LOSS, SHAKY,OFF BALANCE,MIGRAINE History of Present Illness The patient is a 43 year old female who presents to the Emergency Room with complaints of a severe and constant migraine headache that began earlier today. The patient states that she is receiving a weekly chemotherapy treatment, but had an off-day this past Friday. She said that she commonly gets headaches after her steroids wear off following her treatments. She has never had a headache to this severity. The patient notes that the pain is affecting her hearing. Source of History: patient Onset: Earlier today Position: head Symptom Intensity: severe Quality: other (Migraine headache) Timing: constant Review of Systems See HPI for pertinent positives & negatives. A total of 10 systems reviewed and were otherwise negative. Past Medical & Surgical Medical Problems: (1) Breast CA (2) Edema (3) Migraine headache (4) Recurrent breast cancer Surgical Problems: (1) History of left mastectomy (2) History of lumpectomy of left breast (3) History of lymph node biopsy (4) History of lymph node dissection of left axilla (5) History of reconstruction of anterior cruciate ligament tear (6) Port-a-cath in place Family History Cancer Diabetes mellitus Heart disease Hypertension Social History Smoking Status: Former Smoker Alcohol Use: none Drug Use: none Marital Status: Housing Status: lives with family Occupation Status: unemployed Current/Historical Medications Scheduled Balsalazide (Colazal), 3,000 MG PO BIDM Furosemide (Lasix), 40 MG PO DAILY Glycopyrrolate (Glycopyrrolate), 2 MG PO BID Lorazepam (Ativan), 1 MG PO TID Methylphenidate (Ritalin), 5 MG PO DAILY Multivit/Min/Iron/Fol Ac/Pren ( Vitamin), 1 TAB PO DAILY Pantoprazole (Protonix), 40 MG PO QAM Sertraline (Zoloft), 100 MG PO DAILY Scheduled PRN Ondansetron Hcl (Zofran), 8 MG PO PRN PRN for Nausea Oxycodone Ir (Roxicodone Ir), 10 MG PO Q6H PRN for Pain Tramadol (Ultram), 100 MG PO TID PRN for Pain Zolpidem Tartrate (Zolpidem Tartrate), 10 MG PO HS PRN for Sleep Miscellaneous Medications Prednisone (Prednisone), 20 MG PO Allergies Coded Allergies: Latex (Verified Allergy, Intermediate, ERRYTHEMA, 04/14/18) Phenazopyridine (Verified Allergy, Intermediate, vomitting, 04/14/18) Adhesives (Unverified Allergy, Unknown, SKIN IRRITATION RASH, 04/14/18) Penicillins (Unverified Allergy, Unknown, SKIN IRRITATION SWELLING VOMITING, 04/14/18) Sulfa Antibiotics (Unverified Allergy, Unknown, SKIN IRRITATION SWELLING VOMITING, 04/14/18) Physical Exam Vital Signs Date Time Temp Pulse Resp B/P (MAP) Pulse Ox O2 Delivery O2 Flow Rate FiO2 04/14/18 14:39 65 18 113/74 Room Air 04/14/18 14:08 82 04/14/18 13:35 97 Room Air 04/14/18 13:16 97 Room Air 04/14/18 13:16 84 16 139/89 97 04/14/18 12:36 36.8 90 20 121/84 97 Room Air Physical Exam GENERAL: Awake, alert, well-appearing, in no acute distress HENT: Normocephalic, atraumatic. Oropharynx unremarkable. EYES: Normal conjunctiva. Sclera non-icteric. NECK: Supple. No nuchal rigidity. FROM. No JVD. RESPIRATORY: Clear to auscultation. CARDIAC: Regular rate, normal rhythm. Extremities warm and well perfused. Pulses equal. ABDOMEN: Soft, non-distended. No tenderness to palpation. No rebound or guarding. No masses. RECTAL: Deferred. MUSCULOSKELETAL: Chest examination reveals no tenderness. The back is symmetrical on inspection without obvious abnormality. There is no CVA tenderness to palpation. No joint edema. LOWER EXTREMITIES: Calves are equal size bilaterally and non-tender. No edema. No discoloration. NEURO: Normal sensorium. No sensory or motor deficits noted. No evidence of Meningitis or encephalitis on exam SKIN: No rash or jaundice noted. Medical Decision & Procedures ER Provider Diagnostic Interpretation: ABD/PELVIS IV AND ORAL CONT CLINICAL HISTORY: 43 years-old Female presenting with METASTATIC BREAST CA. TECHNIQUE: Multidetector CT of the abdomen and pelvis was performed after the administration of oral and intravenous contrast. IV contrast: 94 mL of Optiray 320. A dose lowering technique was used consistent with the principles of ALARA (as low as reasonably achievable). COMPARISON: 02/11/2018. CT DOSE (mGy.cm): The estimated cumulative dose is 1395.[address] chest. FINDINGS: Family Practice Doctor topogram: Unremarkable. Lung bases: Partially visualized right internal jugular Mediport terminates in the superior cavoatrial junction. Dependent groundglass opacities. Normal heart size. No pericardial or pleural effusion. Liver: Normal morphology. No liver lesion. Patent hepatic vasculature. Biliary: No intrahepatic or extrahepatic biliary ductal dilatation. Normal gallbladder. Pancreas: Normal. Spleen: Normal. Adrenal glands: Persistent 12 mm nodule in the left adrenal gland (series 11 image 112), indeterminate by density but unchanged. Right adrenal gland normal. Kidneys and ureters: Normal. No hydronephrosis. Ureters not distended. Paucity of intra-abdominal fat limits evaluation of the ureters. Bladder: Circumferential bladder wall thickening allowing for underdistention. Pelvic organs: Uterus and ovaries normal. Bowel: Normal appendix. No bowel obstruction. The terminal ileum demonstrates a lesser degree of wall thickening in comparison to prior though mild persistent wall thickening is evident in a similar distribution. No perienteric inflammatory change. Peritoneal cavity: No free fluid or intraperitoneal gas. Lymph nodes: No enlarged lymph nodes in the abdomen or pelvis. Vasculature: Aorta and IVC patent and normal in caliber. Abdominal wall: Postsurgical changes of left mastectomy. Musculoskeletal: Degenerative changes of the spine. No destructive osseous lesions. IMPRESSION: 1. No evidence of intra-abdominal metastatic disease or lymphadenopathy. No acute intra-abdominal pathology. 2. Persistent indeterminant 12 mm left adrenal gland nodule. 3. Decreased wall thickening of the terminal ileum. No convincing evidence of acute inflammatory change of the bowel. This may represent resolving ileitis, although the appearance on the prior CT was nonspecific and can also be seen in the setting of angioedema or radiation enteritis among other etiologies. Electronically signed by: Heber Geiger M.D. 04/14/2018 3:24 PM Dictated Date/Time: 04/14/2018 3:16 PM [~ rep ct add3]] (CHEST FOR PE) ANGIO WITH CLINICAL HISTORY: 43 years-old Female presenting with ^Pt c/o severe headache, metastatic breast cancer. TECHNIQUE: Multidetector CT angiography of the chest was performed after administration of intravenous contrast. 3-D volumetric and/or maximum intensity projection (MIP) images were subsequently reconstructed for review. IV contrast: 94 mL of Optiray 320. A dose lowering technique was used consistent with the principles of ALARA (as low as reasonably achievable). COMPARISON: 02/11/2018. CT DOSE (mGy.cm): The estimated cumulative dose is 1395.22 mGy.cm. FINDINGS: Family Practice Doctor topogram: Unremarkable. Pulmonary vasculature: The study is adequate for assessment of the pulmonary vascular tree. No filling defect within the pulmonary arteries to suggest embolus. Main pulmonary artery is not enlarged. No flattening of the interventricular septum. No intracardiac filling defect. No reflux of contrast into the hepatic veins. Remaining chest: On soft tissue windows, right internal jugular Mediport terminates in the SVC. Postsurgical changes of left mastectomy. Mild diffuse body wall edema. Previously noted enlarged left supraclavicular and axillary lymph nodes are not significant changed from prior. An index node in the left supraclavicular region measures 9 mm in the short axis, previously 7 mm. The left internal mammary pathologically enlarged lymph node measures 14 mm in the short axis (series 8 image 160), unchanged. Decreased prominence of mediastinal lymphadenopathy with only vague fat infiltration evident. Normal aorta. Normal heart size. No pericardial or pleural effusion. Upper abdomen normal. On lung windows, extensive primarily dependent groundglass opacity is new from prior. Mosaic attenuation also noted. Mild smooth interlobular septal thickening. Mild bronchial wall thickening predominantly in the lower lobes. No focal nodule or infiltrate. On bone windows, no destructive osseous lesion. IMPRESSION: 1. Stable to slight interval decrease in mediastinal lymphadenopathy with stable left axillary, supraclavicular and internal mammary lymphadenopathy. 2. Postsurgical changes of left mastectomy. 3. No convincing evidence of pulmonary metastatic disease. 4. Interval development of dependent groundglass opacities with mosaic attenuation, interlobular septal thickening, and mild bronchial wall thickening. This could suggest congestive change/volume overload. Less likely this could be secondary to a drug reaction. Electronically signed by: Heber Geiger M.D. 04/14/2018 3:16 PM Dictated Date/Time: 04/14/2018 3:07 PM HEAD CTA HISTORY: Metastatic breast cancer. Severe headache. TECHNIQUE: Multiaxial CT images of the head were performed both before and after the intravenous administration of contrast to evaluate the major cerebral vessels. Maximum intensity projection images were also obtained. A dose lowering technique was utilized adhering to the principles of ALARA. COMPARISON: Head CT 07/30/2017. FINDINGS: There is no mass, hematoma, midline shift, or acute infarct. Visualized intracranial internal carotid arteries, distal vertebral arteries, and basilar artery are widely patent. There is no significant stenosis, occlusion, or aneurysm seen within the bilateral ACAs, MCAs, or agronomy supervisor. No abnormal enhancement. IMPRESSION: No acute intracranial abnormality. No significant stenosis, occlusion, or aneurysm within the [place]. Electronically signed by: David Durán M.D. 04/14/2018 3:22 PM Dictated Date/Time: 04/14/2018 3:13 PM Laboratory Results 04/14/18 13:35 Red Blood Count 3.36, Mean Corpuscular Volume 98.8, Mean Corpuscular Hemoglobin 33.0, Mean Corpuscular Hemoglobin Concent 33.4, Mean Platelet Volume 10.6, Neutrophils (%) (Auto) 80.2, Lymphocytes (%) (Auto) 11.8, Monocytes (%) (Auto) 7.2, Eosinophils (%) (Auto) 0.4, Basophils (%) (Auto) 0.2, Neutrophils # (Auto) 3.66, Lymphocytes # (Auto) 0.54, Monocytes # (Auto) 0.33, Eosinophils # (Auto) 0.02, Basophils # (Auto) 0.01 04/14/18 13:35 Test 04/14/18 13:35 04/14/18 13:57 04/14/18 14:09 04/14/18 14:30 White Blood Count 4.57 K/uL (4.8-10.8) Red Blood Count 3.36 M/uL (4.2-5.4) Hemoglobin 11.1 g/dL (12.0-16.0) Hematocrit 33.2 % (37-47) Mean Corpuscular Volume 98.8 fL (80-100) Mean Corpuscular Hemoglobin 33.0 pg (25-34) Mean Corpuscular Hemoglobin Concent 33.4 g/dl (32-36) Platelet Count 117 K/uL (130-400) Mean Platelet Volume 10.6 fL (7.4-10.4) Neutrophils (%) (Auto) 80.2 % Lymphocytes (%) (Auto) 11.8 % Monocytes (%) (Auto) 7.2 % Eosinophils (%) (Auto) 0.4 % Basophils (%) (Auto) 0.2 % Neutrophils # (Auto) 3.66 K/uL (1.4-6.5) Lymphocytes # (Auto) 0.54 K/uL (1.2-3.4) Monocytes # (Auto) 0.33 K/uL (0.11-0.59) Eosinophils # (Auto) 0.02 K/uL (0-0.5) Basophils # (Auto) 0.01 K/uL (0-0.2) RDW Standard Deviation 82.3 fL (36.4-46.3) RDW Coefficient of Variation 22.9 % (11.5-14.5) Immature Granulocyte % (Auto) 0.2 % Immature Granulocyte # (Auto) 0.01 K/uL (0.00-0.02) Anisocytosis PRESENT Tear Drop Cells 1+ Est Creatinine Clear Calc Drug Dose 87.1 ml/min Estimated GFR () 98.7 Estimated GFR (Non- 85.1 BUN/Creatinine Ratio 13.5 (10-20) Calcium Level 9.0 mg/dl (8.5-10.1) Total Bilirubin 0.4 mg/dl (0.2-1) Direct Bilirubin 0.2 mg/dl (0-0.2) Aspartate Amino Transf (AST/SGOT) 20 U/L (15-37) Alanine Aminotransferase (ALT/SGPT) 16 U/L (12-78) Alkaline Phosphatase 70 U/L (45-117) Total Protein 7.2 gm/dl (6.4-8.2) Albumin 3.8 gm/dl (3.4-5.0) Thyroid Stimulating Hormone (TSH) 0.970 uIu/ml (0.300-4.500) Bedside Glucose 134 mg/dl (70-90) Bedside Hemoglobin 11.2 g/dl (12.0-16.0) Bedside Hematocrit 33 % (37-47) Bedside Sodium 138 mEq/L (135-144) Bedside Potassium 3.6 mEq/L (3.3-5.0) Bedside Chloride 100 mEq/L (101-112) Bedside Total CO2 30 mEq/l (24-31) Anion Gap 13.0 mmol/L (16-25) Bedside Blood Urea Nitrogen 11 mg/dl (7-18) Bedside Creatinine 0.9 mg/dl (0.6-1.3) Bedside Glucose (other) 119 mg/dl (70-99) Bedside Ionized Calcium (Maryann) 1.15 mmol/l (1.12-1.32) Urine Color YELLOW Urine Appearance CLEAR (CLEAR) Urine pH 8.5 (4.5-7.5) Urine Specific [place] 1.014 (1.000-1.030) Urine Protein NEG (NEG) Urine Glucose (UA) NEG (NEG) Urine Ketones NEG (NEG) Urine Occult Blood NEG (NEG) Urine Nitrite NEG (NEG) Urine Bilirubin NEG (NEG) Urine Urobilinogen NEG (NEG) Urine Leukocyte Esterase NEG (NEG) Labs reviewed by ED physician. Medications Administered Medications (Trade) Dose Ordered Sig/Katherine Route Start Time Stop Time Status Last Admin Dose Admin Hydromorphone HCl (Dilaudid Inj) 1 mg NOW STAT IV 04/14/18 12:51 04/14/18 12:55 DC 04/14/18 13:35 1 MG Ondansetron HCl (Zofran Inj) 4 mg NOW STAT IV 04/14/18 12:51 04/14/18 12:55 DC 04/14/18 13:35 4 MG Ketorolac Tromethamine (Toradol Inj) 30 mg NOW STAT IV 04/14/18 13:43 04/14/18 13:45 DC 04/14/18 14:14 30 MG Prochlorperazine Edisylate (Compazine Inj) 5 mg NOW STAT IV 04/14/18 13:43 04/14/18 13:45 DC 04/14/18 14:13 5 MG Diphenhydramine HCl (Benadryl Inj) 50 mg NOW STAT IV 04/14/18 13:43 04/14/18 13:45 DC 04/14/18 14:14 50 MG Magnesium Sulfate (Magnesium Sulfate 1gm / D5W) 1 gm NOW STAT IV 04/14/18 13:48 04/14/18 13:49 DC 04/14/18 14:15 1 GM Sodium Chloride 1,000 ml @ 999 mls/hr Q1H1M STAT IV 04/14/18 13:48 04/14/18 14:48 DC 04/14/18 14:16 999 MLS/HR Valproate Sodium 500 mg/Dextrose 55 ml @ 55 mls/hr NOW STAT IV 04/14/18 14:50 04/14/18 15:49 DC 04/14/18 15:27 55 MLS/HR Dexamethasone Sodium Phosphate 10 mg/Syringe 2.5 ml @ 1 mls/min NOW STAT IV 04/14/18 14:50 04/14/18 14:53 DC 04/14/18 15:27 1 MLS/MIN Acetaminophen (Tylenol Tab) 1,000 mg NOW STAT PO 04/14/18 14:50 04/14/18 14:53 DC 04/14/18 15:26 1,000 MG Oxycodone HCl (Roxicodone Immediate Rel Tab) 10 mg Q6H PRN PO 04/14/18 16:30 04/28/18 16:29 04/15/18 02:27 10 MG Tramadol HCl (Ultram Tab) 100 mg TID PRN PO 04/14/18 16:30 05/14/18 16:29 04/15/18 06:14 100 MG Zolpidem Tartrate (Ambien Tab) 10 mg HS PRN PO 04/14/18 16:30 05/14/18 16:29 04/14/18 23:31 10 MG Ondansetron HCl (Zofran Inj) 4 mg Q6H PRN IV 04/14/18 16:45 05/14/18 16:44 04/14/18 19:54 4 MG ED Course 1245: Past medical records reviewed. The patient was evaluated in room C7. A complete history and physical examination was performed. 1251: ordered Zofran 4 mg IV, Dilaudid 1 mg IV. 1343: Ordered Benadryl 50 mg IV, Compazine 5 mg IV, Toradol 30 mg IV. 1348: Ordered Sodium Chloride 1000 mL @ 999 mL/hr IV, Magnesium Sulfate 1 gm IV. 1412: I checked on the patient she is still in pain. Medical Decision Differential diagnosis: Etiologies such as migraine headache, meningitis, sinusitis, CO exposure, ICH, SAH, infection, tumor, headache, sinus thrombosis, arterial dissection, as well as others were entertained. This is a 43-year-old female who presents emergency department complaining of severe pain upon my first examination of the patient the patient is pacing and is extremely agitated. Because of the onset of symptoms, the patient's port was accessed and the patient was given 1 of Dilaudid as well as Zofran. Repeat examination revealed improvement in the patient's symptoms. I will note that the patient appears to be joking around and watching TV very loudly in the room however when I enter the room the patient becomes very tearful and agitated and is requesting to be admitted. She was then given Toradol Compazine and Benadryl. Repeat examination revealed improvement in the patient's symptoms. The patient was started on magnesium drip and given valproate as well as Decadron. She was sent for CAT scans of the head chest abdomen and pelvis. This did not show any acute process. The patient is requesting that she be admitted so I did discuss the case with the hospitalist service based on her metastatic cancer diagnosis. Impression Primary Impression: Headache Scribe Attestation The scribe's documentation has been prepared under my direction and personally reviewed by me in its entirety. I confirm that the note above accurately reflects all work, treatment, procedures, and medical decision making performed by me. Departure Information Dispostion Still a Patient Referrals Leonidas Salter M.D. (PCP) Patient Instructions My [facility] Problem Qualifiers Primary Impression: Headache Headache type: unspecified Headache chronicity pattern: unspecified pattern Intractability: not intractable Qualified Codes: R51 - Headache
[2018-04-14] MEDS ORDERED: PROCHLORPERAZINE 5 MG/ML 2 ML VIAL IV STA (13:43)
[2018-04-14] MEDS ORDERED: DiphenhydrAMINE HCL 50 MG/ML VIAL IV STA (13:43)
[2018-04-14] MEDS ORDERED: KETOROLAC TROMETHAMINE 30 MG/ML VIAL IV STA (13:43)
[2018-04-14] MEDS ORDERED: SODIUM CHLORIDE 0.9% 1000ML 1,000 ML IV STA (13:48)
[2018-04-14] MEDS ORDERED: MAGNESIUM SULFATE 1GM / D5W 1 GM BAG IV STA (13:48)
[2018-04-14] MEDS ORDERED: OPTIRAY 320 IV PRN (14:00)
[2018-04-14 14:14] LABS: BASO % 0.2 %; BASO ABS # 0.01 K/uL (0-0.2); EOS % 0.4 %; EOS ABS # 0.02 K/uL (0-0.5); HEMATOCRIT 33.2 % (37-47); HEMOGLOBIN 11.1 g/dL (12.0-16.0); IG# 0.01 K/uL (0.00-0.02); LYMPH % 11.8 %; LYMPH ABS # 0.54 K/uL (1.2-3.4); MEAN CELL VOLUME 98.8 fL (80-100); MEAN CORPUSCULAR HGB CONC 33.4 g/dl (32-36); MEAN PLATELET VOLUME 10.6 fL (7.4-10.4); MONO % 7.2 %; MONO ABS # 0.33 K/uL (0.11-0.59); NEUT % 80.2 %; NEUT ABS # 3.66 K/uL (1.4-6.5); PLATELET COUNT 117 K/uL (130-400); RED CELL DISTRIBUTION WIDTH CV 22.9 % (11.5-14.5); RED CELL DISTRIBUTION WIDTH SD 82.3 fL (36.4-46.3); WHITE BLOOD COUNT 4.57 K/uL (4.8-10.8)
[2018-04-14 14:22] LABS: ISTAT CREATININE 0.9 mg/dl (0.6-1.3); ISTAT IONIZED CALCIUM 1.15 mmol/l (1.12-1.32); ISTAT POTASSIUM 3.6 mEq/L (3.3-5.0)
[2018-04-14 14:33] LABS: ALBUMIN 3.8 gm/dl (3.4-5.0); CREATININE 0.84 mg/dl (0.60-1.20); POTASSIUM 3.6 mmol/L (3.5-5.1)
[2018-04-14 14:43] LABS: TOTAL PROTEIN 7.2 gm/dl (6.4-8.2)
[2018-04-14] MEDS ORDERED: DEXAMETHASONE INJ 10 MG in SYRINGE 0 ML IV STA (14:50)
[2018-04-14] MEDS ORDERED: VALPROATE SOD IV 500 MG in DEXTROSE 5% 50ML 50 ML IV STA (14:50)
[2018-04-14] MEDS ORDERED: ACETAMINOPHEN 500 MG TAB PO STA (14:50)
[2018-04-14] MEDS ORDERED: METH5TAB4 PO (15:06)
--- NOTE | 2018-04-14 15:17 | DIAGNOSTIC IMAGING REPORT ---
(CHEST FOR PE) ANGIO WITH CLINICAL HISTORY: 43 years-old Female presenting with ^Pt c/o severe headache, metastatic breast cancer. TECHNIQUE: Multidetector CT angiography of the chest was performed after administration of intravenous contrast. 3-D volumetric and/or maximum intensity projection (MIP) images were subsequently reconstructed for review. IV contrast: 94 mL of Optiray 320. A dose lowering technique was used consistent with the principles of ALARA (as low as reasonably achievable). COMPARISON: 02/11/2018. CT DOSE (mGy.cm): The estimated cumulative dose is 1395.22 mGy.cm. FINDINGS: Vice President Of Manufacturing topogram: Unremarkable. Pulmonary vasculature: The study is adequate for assessment of the pulmonary vascular tree. No filling defect within the pulmonary arteries to suggest embolus. Main pulmonary artery is not enlarged. No flattening of the interventricular septum. No intracardiac filling defect. No reflux of contrast into the hepatic veins. Remaining chest: On soft tissue windows, right internal jugular Mediport terminates in the SVC. Postsurgical changes of left mastectomy. Mild diffuse body wall edema. Previously noted enlarged left supraclavicular and axillary lymph nodes are not significant changed from prior. An index node in the left supraclavicular region measures 9 mm in the short axis, previously 7 mm. The left internal mammary pathologically enlarged lymph node measures 14 mm in the short axis (series 8 image 160), unchanged. Decreased prominence of mediastinal lymphadenopathy with only vague fat infiltration evident. Normal aorta. Normal heart size. No pericardial or pleural effusion. Upper abdomen normal. On lung windows, extensive primarily dependent groundglass opacity is new from prior. Mosaic attenuation also noted. Mild smooth interlobular septal thickening. Mild bronchial wall thickening predominantly in the lower lobes. No focal nodule or infiltrate. On bone windows, no destructive osseous lesion. IMPRESSION: 1. Stable to slight interval decrease in mediastinal lymphadenopathy with stable left axillary, supraclavicular and internal mammary lymphadenopathy. 2. Postsurgical changes of left mastectomy. 3. No convincing evidence of pulmonary metastatic disease. 4. Interval development of dependent groundglass opacities with mosaic attenuation, interlobular septal thickening, and mild bronchial wall thickening. This could suggest congestive change/volume overload. Less likely this could be secondary to a drug reaction. Electronically signed by: Heber Geiger M.D. 04/14/2018 3:16 PM Dictated Date/Time: 04/14/2018 3:07 PM
[2018-04-14] MEDS ORDERED: CLZ750 PO (15:21)
--- NOTE | 2018-04-14 15:23 | DIAGNOSTIC IMAGING REPORT ---
HEAD CTA HISTORY: Metastatic breast cancer. Severe headache. TECHNIQUE: Multiaxial CT images of the head were performed both before and after the intravenous administration of contrast to evaluate the major cerebral vessels. Maximum intensity projection images were also obtained. A dose lowering technique was utilized adhering to the principles of ALARA. COMPARISON: Head CT 07/30/2017. FINDINGS: There is no mass, hematoma, midline shift, or acute infarct. Visualized intracranial internal carotid arteries, distal vertebral arteries, and basilar artery are widely patent. There is no significant stenosis, occlusion, or aneurysm seen within the bilateral ACAs, MCAs, or radiologic tech. No abnormal enhancement. IMPRESSION: No acute intracranial abnormality. No significant stenosis, occlusion, or aneurysm within the redding of Gutierrez. Electronically signed by: David Durán M.D. 04/14/2018 3:22 PM Dictated Date/Time: 04/14/2018 3:13 PM
--- NOTE | 2018-04-14 15:26 | DIAGNOSTIC IMAGING REPORT ---
ABD/PELVIS IV AND ORAL CONT CLINICAL HISTORY: 43 years-old Female presenting with METASTATIC BREAST CA. TECHNIQUE: Multidetector CT of the abdomen and pelvis was performed after the administration of oral and intravenous contrast. IV contrast: 94 mL of Optiray 320. A dose lowering technique was used consistent with the principles of ALARA (as low as reasonably achievable). COMPARISON: 02/11/2018. CT DOSE (mGy.cm): The estimated cumulative dose is 1395.[address] chest. FINDINGS: Game Technician topogram: Unremarkable. Lung bases: Partially visualized right internal jugular Mediport terminates in the superior cavoatrial junction. Dependent groundglass opacities. Normal heart size. No pericardial or pleural effusion. Liver: Normal morphology. No liver lesion. Patent hepatic vasculature. Biliary: No intrahepatic or extrahepatic biliary ductal dilatation. Normal gallbladder. Pancreas: Normal. Spleen: Normal. Adrenal glands: Persistent 12 mm nodule in the left adrenal gland (series 11 image 112), indeterminate by density but unchanged. Right adrenal gland normal. Kidneys and ureters: Normal. No hydronephrosis. Ureters not distended. Paucity of intra-abdominal fat limits evaluation of the ureters. Bladder: Circumferential bladder wall thickening allowing for underdistention. Pelvic organs: Uterus and ovaries normal. Bowel: Normal appendix. No bowel obstruction. The terminal ileum demonstrates a lesser degree of wall thickening in comparison to prior though mild persistent wall thickening is evident in a similar distribution. No perienteric inflammatory change. Peritoneal cavity: No free fluid or intraperitoneal gas. Lymph nodes: No enlarged lymph nodes in the abdomen or pelvis. Vasculature: Aorta and IVC patent and normal in caliber. Abdominal wall: Postsurgical changes of left mastectomy. Musculoskeletal: Degenerative changes of the spine. No destructive osseous lesions. IMPRESSION: 1. No evidence of intra-abdominal metastatic disease or lymphadenopathy. No acute intra-abdominal pathology. 2. Persistent indeterminant 12 mm left adrenal gland nodule. 3. Decreased wall thickening of the terminal ileum. No convincing evidence of acute inflammatory change of the bowel. This may represent resolving ileitis, although the appearance on the prior CT was nonspecific and can also be seen in the setting of angioedema or radiation enteritis among other etiologies. Electronically signed by: Heber Geiger M.D. 04/14/2018 3:24 PM Dictated Date/Time: 04/14/2018 3:16 PM
--- NOTE | 2018-04-14 16:25 | History and Physical ---
History & Physical Date & Time of Service: April 14, 2018 at 16:18 Chief Complaint: Slurring, Hearing Loss, Shaky,Off Balance,Migraine Primary Care Physician: Leonidas Salter M.D. History of Present Illness Source: patient, hospital records, other 43 y/o F Hx met breast CA, Crohn's, migraines. Presents with a severe frontal headache. She felt like she was having trouble focusing her vision and hearing at the onset of the RIVERA. She received several medications in the ER including narcotics with limited response. The pt has chemotherapy on Fridays and generally develops a headache the next day as the steroids wear off. She denies a fever, nausea, vomiting. She did state she was feeling shaky and unsteady. Past Medical/Surgical History 1) Metastatic breast CA 2) Migraine headaches 3) Crohn's disease 4) Developed anasarca with chemotherapy which she is managing with Lasix Surgical: 1) L mastectomy 2) ACL repair Family History Cancer Diabetes mellitus Heart disease Hypertension Social History Quit smoking 2011 Smoking Status: Former Smoker Drug Use: none Marital Status: Occupational Status: unemployed Immunizations History of Influenza Vaccine: No History of Tetanus Vaccine?: Yes History of Pneumococcal: No History of Hepatitis B Vaccine: Unknown Allergies Coded Allergies: Latex (Verified Allergy, Intermediate, ERRYTHEMA, 04/14/18) Phenazopyridine (Verified Allergy, Intermediate, vomitting, 04/14/18) Adhesives (Unverified Allergy, Unknown, SKIN IRRITATION RASH, 04/14/18) Penicillins (Unverified Allergy, Unknown, SKIN IRRITATION SWELLING VOMITING, 04/14/18) Sulfa Antibiotics (Unverified Allergy, Unknown, SKIN IRRITATION SWELLING VOMITING, 04/14/18) Home Medications Scheduled Balsalazide (Colazal), 3,000 MG PO BIDM Furosemide (Lasix), 40 MG PO DAILY Glycopyrrolate (Glycopyrrolate), 2 MG PO BID Lorazepam (Ativan), 1 MG PO TID Methylphenidate (Ritalin), 5 MG PO DAILY Multivit/Min/Iron/Fol Ac/Pren ( Vitamin), 1 TAB PO DAILY Pantoprazole (Protonix), 40 MG PO QAM Sertraline (Zoloft), 100 MG PO DAILY Scheduled PRN Ondansetron Hcl (Zofran), 8 MG PO PRN PRN for Nausea Oxycodone Ir (Roxicodone Ir), 10 MG PO Q6H PRN for Pain Tramadol (Ultram), 100 MG PO TID PRN for Pain Zolpidem Tartrate (Zolpidem Tartrate), 10 MG PO HS PRN for Sleep Miscellaneous Medications Prednisone (Prednisone), 20 MG PO Review of Systems Constitutional: + weakness, No fever, No chills, No sweats Eyes: No worsening of vision ENT: No hearing loss, No nasal symptoms Respiratory: No cough, No wheezing Cardiovascular: No chest pain, No orthopnea, No PND Abdomen: No pain, No nausea, No vomiting Musculoskeletal: No joint pain Genitourinary - Female: No dysuria, No urinary frequency, No urinary urgency Neurologic: + weakness, + problem reported (Headache as above - reports impaired vision and hearing at onset and unsteadiness), No memory loss, No paralysis Psychiatric: No depression symptoms Endocrine: + fatigue Hematologic / Lymphatic: No abnormal bleeding/bruising Integumentary: No rash Allergic / Immunologic: No environmental allergies Physical Exam Vital Signs Date Time Temp Pulse Resp B/P (MAP) Pulse Ox O2 Delivery O2 Flow Rate FiO2 04/14/18 14:39 65 18 113/74 Room Air 04/14/18 14:08 82 04/14/18 13:35 97 Room Air 04/14/18 13:16 97 Room Air 04/14/18 13:16 84 16 139/89 97 04/14/18 12:36 36.8 90 20 121/84 97 Room Air General Appearance: WD/WN, no apparent distress Head: normocephalic Eyes: normal inspection ENT: normal ENT inspection, pharynx normal Neck: supple, no JVD Respiratory/Chest: chest non-tender, lungs clear, normal breath sounds Cardiovascular: regular rate, rhythm, no edema, no gallop Abdomen/GI: normal bowel sounds, non tender, soft Back: normal inspection, no CVA tenderness Extremities/Musculoskelatal: normal inspection, no calf tenderness, normal capillary refill Neurologic/Psych: mandarin speaking nanny II-XII nml as tested, no motor/sensory deficits, alert, oriented x 3 Skin: normal color Diagnostics Laboratory Results Results Past 24 Hours Test 04/14/18 13:35 04/14/18 14:09 04/14/18 14:30 Range/Units White Blood Count 4.57 4.8-10.8 K/uL Red Blood Count 3.36 4.2-5.4 M/uL Hemoglobin 11.1 12.0-16.0 g/dL Hematocrit 33.2 37-47 % Mean Corpuscular Volume 98.8 80-100 fL Mean Corpuscular Hemoglobin 33.0 25-34 pg Mean Corpuscular Hemoglobin Concent 33.4 32-36 g/dl Platelet Count 117 130-400 K/uL Mean Platelet Volume 10.6 7.4-10.4 fL Neutrophils (%) (Auto) 80.2 % Lymphocytes (%) (Auto) 11.8 % Monocytes (%) (Auto) 7.2 % Eosinophils (%) (Auto) 0.4 % Basophils (%) (Auto) 0.2 % Neutrophils # (Auto) 3.66 1.4-6.5 K/uL Lymphocytes # (Auto) 0.54 1.2-3.4 K/uL Monocytes # (Auto) 0.33 0.11-0.59 K/uL Eosinophils # (Auto) 0.02 0-0.5 K/uL Basophils # (Auto) 0.01 0-0.2 K/uL RDW Standard Deviation 82.3 36.4-46.3 fL RDW Coefficient of Variation 22.9 11.5-14.5 % Immature Granulocyte % (Auto) 0.2 % Immature Granulocyte # (Auto) 0.01 0.00-0.02 K/uL Anisocytosis PRESENT Tear Drop Cells 1+ Sodium Level 138 136-145 mmol/L Potassium Level 3.6 3.5-5.1 mmol/L Chloride Level 102 98-107 mmol/L Carbon Dioxide Level 30 21-32 mmol/L Anion Gap 6.0 13.0 16-25 mmol/L Blood Urea Nitrogen 11 7-18 mg/dl Creatinine 0.84 0.60-1.20 mg/dl Est Creatinine Clear Calc Drug Dose 87.1 ml/min Estimated GFR () 98.7 Estimated GFR (Non- 85.1 BUN/Creatinine Ratio 13.5 10-20 Random Glucose 115 70-99 mg/dl Calcium Level 9.0 8.5-10.1 mg/dl Total Bilirubin 0.4 0.2-1 mg/dl Direct Bilirubin 0.2 0-0.2 mg/dl Aspartate Amino Transf (AST/SGOT) 20 15-37 U/L Alanine Aminotransferase (ALT/SGPT) 16 12-78 U/L Alkaline Phosphatase 70 45-117 U/L Total Protein 7.2 6.4-8.2 gm/dl Albumin 3.8 3.4-5.0 gm/dl Thyroid Stimulating Hormone (TSH) 0.970 0.300-4.500 uIu/ml Bedside Hemoglobin 11.2 12.0-16.0 g/dl Bedside Hematocrit 33 37-47 % Bedside Sodium 138 135-144 mEq/L Bedside Potassium 3.6 3.3-5.0 mEq/L Bedside Chloride 100 101-112 mEq/L Bedside Total CO2 30 24-31 mEq/l Bedside Blood Urea Nitrogen 11 7-18 mg/dl Bedside Creatinine 0.9 0.6-1.3 mg/dl Bedside Glucose (other) 119 70-99 mg/dl Bedside Ionized Calcium (Maryann) 1.15 1.12-1.32 mmol/l Urine Color YELLOW Urine Appearance CLEAR CLEAR Urine pH 8.5 4.5-7.5 Urine Specific [place] 1.014 1.000-1.030 Urine Protein NEG NEG Urine Glucose (UA) NEG NEG Urine Ketones NEG NEG Urine Occult Blood NEG NEG Urine Nitrite NEG NEG Urine Bilirubin NEG NEG Urine Urobilinogen NEG NEG Urine Leukocyte Esterase NEG NEG Diagnostic Radiology IMPRESSION: 1. Stable to slight interval decrease in mediastinal lymphadenopathy with stable left axillary, supraclavicular and internal mammary lymphadenopathy. 2. Postsurgical changes of left mastectomy. 3. No convincing evidence of pulmonary metastatic disease. 4. Interval development of dependent ground glass opacities with mosaic attenuation, interlobular septal thickening, and mild bronchial wall thickening. This could suggest congestive change/volume overload. Less likely this could be secondary to a drug reaction. Impression Assessment and Plan 43 y/o F Hx met breast CA, Crohn's, migraines. Presents with a severe frontal headache. She felt like she was having trouble focusing her vision and hearing at the onset of the RIVERA. She received several medications in the ER including narcotics with limited response. The pt has chemotherapy on Fridays and generally develops a headache the next day as the steroids wear off. She denies a fever, nausea, vomiting. She did state she was feeling shaky and unsteady. 1) Intractable migraine - Pt will be assigned to the medical floor and provided with PRN analgesics and IVF. We will consult neuro if her RIVERA does not resolve overnight. She may need referral to ea neurologist regardless as she states her HAs continue to worsen when she receives her chemo. 2) Crohn's - she is currently on a steroid taper for a recent flair which we will maintain. We will cont Balsalazide as prescribed. 3) Breast CA - at the request of her oncologist, she received a CT chest/abd/ pelvis which do not reveal any acute changes. 4) She is prone to anasarca so that we will cont her daily Lasix. Full code - Heparin prophylaxis Total time for this admit including review of labs, meds, imaging, records - discussion with pt and ER attending - 33 min Resuscitation Status VTE Prophylaxis Will order VTE Prophylaxis: Yes
[2018-04-14] MEDS ORDERED: POLYETHYLENE (MIRALAX) 17 GM PACK PO PRN (16:45)
[2018-04-14] MEDS ORDERED: ALUMINUM/MAGNESIUM/SIMETH (MAALOX MAX) 30 ML UDC PO PRN (16:45)
[2018-04-14] MEDS ORDERED: ZOLPIDEM TARTRATE 5 MG TAB PO PRN (16:45)
[2018-04-14] MEDS ORDERED: ACETAMINOPHEN 325 MG TAB PO PRN (16:45)
[2018-04-14] MEDS ORDERED: MAGNESIUM HYDROXIDE SUSP 30 ML UDC PO PRN (16:45)
[2018-04-14 16:47] VITALS: O2SAT 97; BMI 23.2
[2018-04-14] MEDS ORDERED: IV FLUIDS COMPLETED PRN (17:00)
[2018-04-14 19:10] VITALS: BP 132/85; PULSE 65; TEMP 36.9; O2SAT 97
[2018-04-14] MEDS: ONDANSETRON INJ 2 MG/ML 2 ML VIAL IV PRN (19:54)
[2018-04-14] MEDS: OXYCODONE HCL IR 5 MG TAB (IMMEDIATE RELEASE) PO PRN (19:54)
[2018-04-14] MEDS: NSS + 20MEQ KCL 1000ML 1,000 ML IV SCH (20:23)
[2018-04-14] MEDS: GLYCOPYRROLATE 1 MG TAB PO SCH (20:55)
[2018-04-14] MEDS: TRAMADOL HCL 50 MG TAB PO PRN (20:55)
[2018-04-14] MEDS: LORAZEPAM 1 MG TAB PO SCH (20:56)
[2018-04-14] MEDS: HEPARIN SOD 5000 UNIT/0.5 ML CARP SQ SCH (20:56)
[2018-04-14] MEDS: ZOLPIDEM TARTRATE 10 MG TAB PO PRN (23:31)
[2018-04-14 23:34] VITALS: BP 130/84; PULSE 57; TEMP 36.5; O2SAT 94
[2018-04-15] VITALS (7 sets, daily range): BP systolic 113–134; BP diastolic 72–86; PULSE 55–71; TEMP 36.4–36.9; O2SAT 93–100; Ht 172.7 cm; Wt 70.5 kg
[2018-04-15] MEDS: OXYCODONE HCL IR 5 MG TAB (IMMEDIATE RELEASE) PO PRN ×3 (02:27→17:24)
[2018-04-15] MEDS: NSS + 20MEQ KCL 1000ML 1,000 ML IV SCH (02:55)
[2018-04-15] MEDS: TRAMADOL HCL 50 MG TAB PO PRN ×2 (06:14→23:41)
--- NOTE | 2018-04-15 07:17 | Progress Note ---
Subjective Date of Service: April 15, 2018. Subjective pt is here with significant headache after chemo treatment, unfortunately we have discovered concern for leptomeningeal spread on MRI Problem List Medical Problems: (1) Breast cancer Status: Acute (2) Ileitis Status: Acute (3) Leg swelling Status: Acute (4) Nausea & vomiting Status: Acute (5) Pancytopenia Status: Acute (6) SOB (shortness of breath) Status: Acute Surgical Problems: (1) Port-a-cath in place Status: Chronic Review of Systems Constitutional: + weakness, + fatigue, No fever, No chills Eyes: No worsening of vision, No eye pain ENT: No hearing loss, No sore throat Respiratory: No cough, No sputum, No wheezing, No shortness of breath Cardiac: No chest pain, No orthopnea, No PND, No edema Abdomen: No pain, No nausea, No vomiting Female : No dysuria, No urinary frequency, No hematuria Neurologic: + weakness, No memory loss, No paralysis Objective Vital Signs Date Time Temp Pulse Resp B/P (MAP) Pulse Ox O2 Delivery O2 Flow Rate FiO2 04/15/18 04:00 36.4 55 16 132/86 (101) 100 Room Air 04/15/18 00:00 Room Air 04/14/18 23:34 36.5 57 16 130/84 (99) 94 Room Air 04/14/18 19:20 70 14 123/74 98 04/14/18 19:10 36.9 65 18 132/85 (101) 97 Room Air 04/14/18 16:50 54 14 115/74 Room Air 04/14/18 16:47 97 Room Air 04/14/18 14:39 65 18 113/74 Room Air 04/14/18 14:08 82 04/14/18 13:35 97 Room Air 04/14/18 13:16 97 Room Air 04/14/18 13:16 84 16 139/89 97 04/14/18 12:36 36.8 90 20 121/84 97 Room Air Physical Exam General Appearance: WD/WN, + mild distress Eyes: normal inspection, PERRL, EOMI, sclerae normal ENT: hearing grossly normal, pharynx normal Neck: supple, no JVD Respiratory/Chest: chest non-tender, lungs clear, normal breath sounds Cardiovascular: regular rate, rhythm, no murmur Abdomen: normal bowel sounds, non tender, soft Extremities: no pedal edema, no calf tenderness Neurologic/Psychiatric: alert, oriented x 3 Laboratory Results Last 24 Hours Test 04/14/18 13:35 04/14/18 13:57 04/14/18 14:09 04/14/18 14:30 White Blood Count 4.57 K/uL Red Blood Count 3.36 M/uL Hemoglobin 11.1 g/dL Hematocrit 33.2 % Mean Corpuscular Volume 98.8 fL Mean Corpuscular Hemoglobin 33.0 pg Mean Corpuscular Hemoglobin Concent 33.4 g/dl Platelet Count 117 K/uL Mean Platelet Volume 10.6 fL Neutrophils (%) (Auto) 80.2 % Lymphocytes (%) (Auto) 11.8 % Monocytes (%) (Auto) 7.2 % Eosinophils (%) (Auto) 0.4 % Basophils (%) (Auto) 0.2 % Neutrophils # (Auto) 3.66 K/uL Lymphocytes # (Auto) 0.54 K/uL Monocytes # (Auto) 0.33 K/uL Eosinophils # (Auto) 0.02 K/uL Basophils # (Auto) 0.01 K/uL RDW Standard Deviation 82.3 fL RDW Coefficient of Variation 22.9 % Immature Granulocyte % (Auto) 0.2 % Immature Granulocyte # (Auto) 0.01 K/uL Anisocytosis PRESENT Tear Drop Cells 1+ Sodium Level 138 mmol/L Potassium Level 3.6 mmol/L Chloride Level 102 mmol/L Carbon Dioxide Level 30 mmol/L Anion Gap 6.0 mmol/L 13.0 mmol/L Blood Urea Nitrogen 11 mg/dl Creatinine 0.84 mg/dl Est Creatinine Clear Calc Drug Dose 87.1 ml/min Estimated GFR () 98.7 Estimated GFR (Non- 85.1 BUN/Creatinine Ratio 13.5 Random Glucose 115 mg/dl Calcium Level 9.0 mg/dl Total Bilirubin 0.4 mg/dl Direct Bilirubin 0.2 mg/dl Aspartate Amino Transf (AST/SGOT) 20 U/L Alanine Aminotransferase (ALT/SGPT) 16 U/L Alkaline Phosphatase 70 U/L Total Protein 7.2 gm/dl Albumin 3.8 gm/dl Thyroid Stimulating Hormone (TSH) 0.970 uIu/ml Bedside Glucose 134 mg/dl Bedside Hemoglobin 11.2 g/dl Bedside Hematocrit 33 % Bedside Sodium 138 mEq/L Bedside Potassium 3.6 mEq/L Bedside Chloride 100 mEq/L Bedside Total CO2 30 mEq/l Bedside Blood Urea Nitrogen 11 mg/dl Bedside Creatinine 0.9 mg/dl Bedside Glucose (other) 119 mg/dl Bedside Ionized Calcium (Maryann) 1.15 mmol/l Urine Color YELLOW Urine Appearance CLEAR Urine pH 8.5 Urine Specific [place] 1.014 Urine Protein NEG Urine Glucose (UA) NEG Urine Ketones NEG Urine Occult Blood NEG Urine Nitrite NEG Urine Bilirubin NEG Urine Urobilinogen NEG Urine Leukocyte Esterase NEG Assessment and Plan 43 y/o F presents with intractable headache with previous migraines, Hx met breast CA, Crohn's. The pt has chemotherapy on Fridays and generally develops a headache the next day as the steroids wear off. Intractable headache, MRI suggests leptomeningeal spread, discussion with Dr Hernandez today. we are attempting to coordinate referral for insertion of intra thecal reservoir to instill chemo as treatment we will continue to facilitate symptom management adding scheduled Decadron to scheduled Tylenol and opiates Crohn's - steroid taper cont Balsalazide Breast CA - at the request of her oncologist, she received a CT chest/abd/ pelvis which do not reveal any acute changes. She is prone to anasarca so that we will cont her daily Lasix. Full code - Heparin prophylaxis
[2018-04-15] MEDS ORDERED: SERTRALINE HCL 100 MG TAB PO SCH (08:00)
[2018-04-15] MEDS ORDERED: FUROSEMIDE 40 MG TAB PO SCH (08:00)
[2018-04-15] MEDS ORDERED: PANTOprazole SOD 40 MG TAB PO SCH (08:00)
[2018-04-15] MEDS ORDERED: METHYLPHENIDATE HCL 10 MG TAB PO SCH (08:00)
[2018-04-15] MEDS: ONDANSETRON INJ 2 MG/ML 2 ML VIAL IV PRN ×3 (08:35→23:46)
[2018-04-15] MEDS: LORAZEPAM 1 MG TAB PO SCH ×2 (08:46→13:02)
[2018-04-15] MEDS: GLYCOPYRROLATE 1 MG TAB PO SCH ×2 (08:49→18:18)
[2018-04-15] MEDS: HEPARIN SOD 5000 UNIT/0.5 ML CARP SQ SCH ×2 (08:52→20:55)
[2018-04-15] MEDS ORDERED: HYDROmorphone INJ 0.5 MG/0.5 ML SYR IV STA (10:05)
[2018-04-15] MEDS ORDERED: HYDROmorphone INJ 0.5 MG/0.5 ML SYR IV PRN (10:15)
[2018-04-15] MEDS ORDERED: MAGNESIUM SULFATE 1GM / D5W 100 ML IV ONE (10:15)
[2018-04-15] MEDS ORDERED: METHYLPREDNISOLONE IV 40 MG in SYRINGE 0 ML IV ONE (10:15)
[2018-04-15] MEDS ORDERED: GADAVIST IV PRN (12:15)
[2018-04-15] MEDS ORDERED: KETOROLAC TROMETHAMINE 30 MG/ML VIAL IV STA (12:27)
[2018-04-15] MEDS ORDERED: LORAZEPAM 2 MG/ML 1 ML VIAL IV PRN ×2 (12:30)
[2018-04-15] MEDS ORDERED: LORAZEPAM INJ 1 MG in SYRINGE 0.5 ML IV PRN (12:45)
[2018-04-15] MEDS ORDERED: LORAZEPAM INJ 0.5 MG in SYRINGE 0.75 ML IV PRN (12:45)
--- NOTE | 2018-04-15 13:52 | DIAGNOSTIC IMAGING REPORT ---
MRI OF THE BRAIN COMBO CLINICAL HISTORY: Headache. History of breast cancer. COMPARISON STUDY: CT of the brain dated 04/14/2018. TECHNIQUE: MRI of the brain was performed utilizing various T1 and T2-weighted sequences in the axial, sagittal, and coronal planes. Contrast-enhanced sequences were acquired following the administration of 7 cc of Gadavist. FINDINGS: Brain parenchyma: There is extensive leptomeningeal thickening and enhancement, most pronounced along the cerebellar sulci, but also seen in the interpedicular cistern, along the sylvian fissure, as well as scattered cortical sulci. The appearance is highly concerning for leptomeningeal spread of tumor. There is no hemorrhage or mass effect. There is no restricted diffusion to suggest acute ischemia. A punctate enhancing lesion is identified in the right periventricular white matter on image #15. Bray-white matter differentiation is preserved. No extra-axial fluid collection is seen. The cerebellar tonsils are normal in configuration. Ventricles, sulci, and cisterns: Normal in configuration. Pituitary and sella: Unremarkable. Intracranial vasculature: Normal flow voids are maintained at the skull base. Orbits: The bony orbits are grossly intact. Orbital contents are normal in appearance. Sinuses and mastoids: Clear. Calvarium: Unremarkable. Cervical cord: Partially visualized cervical spinal cord is normal in morphology and signal intensity. IMPRESSION: 1. There is extensive abnormal leptomeningeal thickening and enhancement as detailed above, greatest involving the cerebellar hemispheres. Given the history of breast cancer this is highly concerning for leptomeningeal metastatic disease. Other etiologies such as meningitis or neurosarcoidosis are considered much less likely. 2. A single punctate focus of abnormal parenchymal enhancement is identified in the right periventricular white matter. This also concerning for metastatic disease. 3. There is no hemorrhage, mass effect, or evidence of acute ischemia. Electronically signed by: Lamonte Pena M.D. 04/15/2018 1:51 PM Dictated Date/Time: 04/15/2018 1:41 PM
[2018-04-15] MEDS: ACETAMINOPHEN 500 MG TAB PO SCH ×2 (14:19→20:53)
--- NOTE | 2018-04-15 16:24 | Radiation Oncology Consult ---
Radiation Oncology Consult Date / Reason April 15, 2018. Super thank you for me was kind enough to ask us to seeDkamila Hernandez his patient Ms. Low for evaluation and discussion of the role of palliative radiation following MRI finding of leptomeningeal disease. Physicians Radiation Oncologist: Dr. Leonidas Riggins Diagnosis (1) Metastatic breast cancer Permanent Comment: 2011 triple negative breast cancer Status post lumpectomy and sentinel lymph node biopsy Chemotherapy recommended but not given due to 2013 recurrence in the left breast and chest wall, status post mastectomy Bracket testing negative Recurrent disease in 2016 Systemic chemotherapy with Adriamycin and Cytoxan followed by Taxol Treatment changed October 2017 to gemcitabine and carboplatin 4 cycles January 2018 pancytopenia and failure to thrive Continue chemotherapy with Taxol Admission March 15, 2018, headache and finding of leptomeningeal metastasis Last Edited By: Angelica Aleman on April 15, 2018 16:38 History of Present Illness Ms. Low is a 43-year-old female who was initially diagnosed with a triple negative breast cancer in 2011. The patient was living in [place] at that time. She was initially treated with a left breast lumpectomy and sentinel node biopsy the patient was unexpectedly found to be at the same time. Adjuvant chemotherapy was recommended but because of the was not accepted. In 2013 patient developed recurrent left breast and chest wall disease. She therefore underwent a left breast mastectomy revealing multicentric disease. Patient was again recommended to have adjuvant systemic chemotherapy however she again reportedly declined. Patient did undergo BRCA testing and has been found negative. Patient is subsequently moved from [place] to the [facility]. She became with her second child and at that time there was no obvious evidence of disease. After the delivery of her second child patient underwent a restaging procedure with a PET CT scan in early 2016. This PET scan unfortunately showed an FDG avid left internal mammary node as the only site of disease. A biopsy was obtained confirming recurrent breast cancer. The patient was advised to have systemic chemotherapy consisting of Adriamycin, Cytoxan and Taxol followed by radiation. A port was placed to allow chemotherapy access but the patient did not return until July 2017. A restaging PET CT scan showed multiple nodular areas of uptake including bilateral supra collapse and mediastinal nodes. A needle biopsy was requested and performed confirming metastatic disease. The patient did complete the Adriamycin and Cytoxan and was on single agent Taxol without significant response as noted by a CT scan of the chest on November 19, 2017. [address] Dr. Hernandez the patient was then switched to D1 , D8 every 21 days gemcitabine/carboplatin in mid October 2017. Patient completed 4 cycles by early January 2017. Patient was admitted for failure to thrive and was found to have pancytopenia. CT scan of the abdomen and pelvis at that time showed long segment of enteritis but no evidence of bowel obstruction or metastatic disease. The patient continued on Taxol chemotherapy. On April 14 the patient presented to the emergency department with a complaint of severe frontal headache, trouble focusing her vision and hearing secondary to severe headaches and cloudiness in her vision of the left eye as well as issues with balance. A CT scan of the head showed no acute intracranial abnormalities. CT of the chest to rule out PE showed no evidence of pulmonary embolism. There was stable to slight interval decrease in the mediastinal lymphadenopathy with stable left axillary, supraclavicular and internal mammary lymphadenopathy. CT scan of the abdomen and pelvis showed no evidence of intra- abdominal metastatic disease or lymphadenopathy or acute intra-abdominal pathology. An MRI of the brain was performed. IMPRESSION: 1. There is extensive abnormal leptomeningeal thickening and enhancement as detailed above, greatest involving the cerebellar hemispheres. Given the history of breast cancer this is highly concerning for leptomeningeal metastatic disease. Other etiologies such as meningitis or neurosarcoidosis are considered much less likely. 2. A single punctate focus of abnormal parenchymal enhancement is identified inthe right periventricular white matter. This also concerning for metastatic disease. 3. There is no hemorrhage, mass effect, or evidence of acute ischemia. With the finding of leptomeningeal disease we were asked to see the patient for discussion of the potential role of palliative whole brain radiation. It is for this reason the patient was seen in referral today. Past History Past Medical/Surgical History: Arthritis, Anxiety, Gastrointestinal Disorder, Reflux, Cancer, Depression Social History Smoking Status: Former Smoker Hx Tobacco Use In Past Year?: No (SMOKED OFF AND ON -2011) Quit Date: Jan 04, 2012 Do You Dip or Chew Tobacco: No Hx Alcohol Use: No Hx Substance Use : No Allergies Coded Allergies: Latex (Verified Allergy, Intermediate, ERRYTHEMA, 04/14/18) Phenazopyridine (Verified Allergy, Intermediate, vomitting, 04/14/18) Adhesives (Unverified Allergy, Unknown, SKIN IRRITATION RASH, 04/14/18) Penicillins (Unverified Allergy, Unknown, SKIN IRRITATION SWELLING VOMITING, 04/14/18) Sulfa Antibiotics (Unverified Allergy, Unknown, SKIN IRRITATION SWELLING VOMITING, 04/14/18) Home Medications Scheduled Balsalazide (Colazal), 3,000 MG PO BIDM Dexamethasone (Decadron), 4 MG PO Q6H Furosemide (Lasix), 40 MG PO DAILY Glycopyrrolate (Glycopyrrolate), 2 MG PO BID Lorazepam (Ativan), 1 MG PO TID Multivit/Min/Iron/Fol Ac/Pren ( Vitamin), 1 TAB PO DAILY Pantoprazole (Protonix), 40 MG PO QAM Sertraline (Zoloft), 100 MG PO DAILY Scheduled PRN Ondansetron Hcl (Zofran), 8 MG PO PRN PRN for Nausea Oxycodone Ir (Roxicodone Ir), 10 MG PO Q6H PRN for Pain Tramadol (Ultram), 100 MG PO TID PRN for Pain Zolpidem Tartrate (Zolpidem Tartrate), 10 MG PO HS PRN for Sleep Review of Systems Ear/Hearing: Ear Side: Bilateral Hearing Ability: Normal Hearing Aid: None Edema: Present?: No Physical Exam Height: 5 (Feet) 8.00 (Inches) 172.7 (Centimeters) 1.7272 (Meters) Weight: 155 (Pounds) 6.8 (Ounces) 70.500 (Kilograms) 88703.000 (Grams) Date Time Temp Pulse Resp B/P (MAP) Pulse Ox O2 Delivery O2 Flow Rate FiO2 04/15/18 14:57 36.5 66 18 121/72 (88) 96 Room Air 04/15/18 11:30 36.9 71 16 130/80 (97) 97 Room Air 04/15/18 08:15 Room Air 04/15/18 07:23 36.6 57 18 134/78 (96) 97 Room Air 04/15/18 04:00 36.4 55 16 132/86 (101) 100 Room Air 04/15/18 00:00 Room Air 04/14/18 23:34 36.5 57 16 130/84 (99) 94 Room Air 04/14/18 19:20 70 14 123/74 98 04/14/18 19:10 36.9 65 18 132/85 (101) 97 Room Air 04/14/18 16:50 54 14 115/74 Room Air 04/14/18 16:47 97 Room Air General Appearance: WD/WN Head: normocephalic, atraumatic Eyes: normal inspection, + pertinent finding ENT: pharynx normal Neck: supple, + pertinent finding (There is a small pea-sized left supraclavicular lymph node. No right supraclavicular adenopathy is appreciated. 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 Pain Management Plan Pain management was through the hospitalist. Laboratory Laboratory Results: were reviewed, and no pertinent findings Pathology Pathology Results: were reviewed, and pertinent findings noted in HPI Imaging Imaging Studies: were reviewed, and pertinent findings noted in HPI Treatment Options I discussed the following treatment options with the patient. 1. We talked about the possibility of whole brain radiation. I reviewed the potential risks and side effects as well as benefits. 2. We discussed the potential benefits of placement of an Ommaya reservoir with intrathecal chemotherapy. Treatment Plan After discussion with the patient and with Dr. Hernandez I felt the patient would be better served at this time with starting with intrathecal chemotherapy following placement of an Ommaya reservoir. Arrangements are being made for the patient to go to [facility] for placement of the reservoir with chemotherapy to begin after that. I did tell the patient that should her condition worsen or not show significant improvement we would be able to start whole brain radiation on short notice. Assessment & Recommendations In summary Ms. Low is a 43-year-old female with a history of triple negative breast cancer who unfortunately now shows evidence of leptomeningeal disease. She is having at times fairly significant headaches and balance issues from cerebellar involvement. She has no cranial nerve findings at this time. I discussed with the patient the options of whole brain radiation versus placement of Ommaya reservoir followed by intrathecal chemotherapy. I told her that I felt it was best at this time to hold the radiation and proceed with placement of Ommaya reservoir. I did tell the patient that we would be able to start radiation in the future if it is felt to be advantageous. The patient appeared to be comfortable with this decision and is awaiting information on transferred to [facility] for placement of the Ommaya reservoir. Thank you for allowing us to participate in the care of this patient. This chart was completed in part utilizing [employer] Speech Voice Recognition software. Attempts were made to minimize the grammatical errors, random word insertions, pronoun errors and incomplete sentences. Any formal questions or concerns about the content, text or information contained within the body of this dictation should be directly addressed to the provider for clarification. Raymond Riggins MD Department of Radiation Oncology [facility] Total Time (Attending) I spent 30 minutes in discussion of the palliative radiation treatment options and 15 minutes reviewing her chart and preparation of this document. Copy To Chavez Hernandez D.O.; Mookie Ramirez M.D.; Leonidas Steel M.D.
[2018-04-15] MEDS ORDERED: DXM/4 PO (16:56)
--- NOTE | 2018-04-15 16:57 | Discharge Instructions ---
Discharge Instructions Date of Service April 15, 2018. Admission Reason for Admission: Migraine Headache Discharge Discharge Diagnosis / Problem: headache from breast cancer Discharge Goals Goal(s): Diagnostic testing, Therapeutic intervention Activity Recommendations Activity Limitations: as noted below Lifting Limitations: gradually increase as tolerated Driving or Machine Use: no driving . Current Hospital Diet Patient's current hospital diet: Regular Diet Discharge Diet Recommended Diet: Regular Diet Pending Studies Studies pending at discharge: no Medical Emergencies . Who to Call and When: Medical Emergencies: If at any time you feel your situation is an emergency, please call 911 immediately. . Non-Emergent Contact Non-Emergency issues call your: Oncologist, Surgeon Call Non-Emergent contact if: temperature is above 101, your pain is not controlled . . "Provider Documentation" section prepared by Mookie Ramirez. .
--- NOTE | 2018-04-15 17:22 | Oncology Consultation ---
Oncology/Heme Consultation Date of Consultation: April 15, 2018. Attending Physician: James Soto M.D. Reason for Consultation: Metastatic breast carcinoma History of Present Illness Ms. Low is a 43-year-old female with a history of left breast carcinoma. She has a history of triple negative breast carcinoma that dates back to 2011 affecting the left breast. At that time she underwent a lumpectomy and sentinel node dissection. Because of personal reasons no chemotherapy was given in October 2014 she would go on to have a mastectomy when disease recurred. With her first disease she was he was because of the that she declined chemotherapy and/or radiation therapy. Again she discovered disease in her left breast in October 2014. She had mastectomy and was found to have multicentric disease. 2 of 19 lymph nodes were involved. A port was placed to start chemotherapy but again for logistical personal reasons she did not receive chemotherapy. At that time she was living in [place]. She moved to [place] in summer 2015 I believe. She has been visiting our clinic since that time. When we first met Ms. Low she was 12-13 weeks into her second . I should note that BRCA testing has been negative. Shortly after the delivery of her second child she was found to have metastatic disease that was documented by a biopsy of an internal mammary lymph node that was FDG avid. She has been treated since with weekly Taxol with no response and more recently with gemcitabine and carboplatinum with CT scans that showed response. Because of a prolonged cytopenia the carboplatinum was dropped and she has been receiving single agent gemcitabine more recently. She now presents with a headache that has been unrelenting over the past few weeks at least and she states that she sometimes falls to the right. She denies really any change in her vision. She denies any fever or chills. Unfortunately at CT and subsequent MRI of her brain have shown findings that are consistent with leptomeningeal disease. Her medical history is also complicated by history now of Crohn's disease Past Medical/Surgical History Medical Problems: (1) Breast cancer Status: Acute (2) Ileitis Status: Acute (3) Leg swelling Status: Acute (4) Nausea & vomiting Status: Acute (5) Pancytopenia Status: Acute (6) SOB (shortness of breath) Status: Acute Surgical Problems: (1) Port-a-cath in place Status: Chronic Family History Cancer Diabetes mellitus Heart disease Hypertension Social History Smoking Status: Former Smoker Drug Use: none Marital Status: Housing Status: lives with family Occupation Status: unemployed Allergies Coded Allergies: Latex (Verified Allergy, Intermediate, ERRYTHEMA, 04/14/18) Phenazopyridine (Verified Allergy, Intermediate, vomitting, 04/14/18) Adhesives (Unverified Allergy, Unknown, SKIN IRRITATION RASH, 04/14/18) Penicillins (Unverified Allergy, Unknown, SKIN IRRITATION SWELLING VOMITING, 04/14/18) Sulfa Antibiotics (Unverified Allergy, Unknown, SKIN IRRITATION SWELLING VOMITING, 04/14/18) Home Medications Scheduled Balsalazide (Colazal), 3,000 MG PO BIDM Dexamethasone (Decadron), 4 MG PO Q6H Furosemide (Lasix), 40 MG PO DAILY Glycopyrrolate (Glycopyrrolate), 2 MG PO BID Lorazepam (Ativan), 1 MG PO TID Multivit/Min/Iron/Fol Ac/Pren ( Vitamin), 1 TAB PO DAILY Pantoprazole (Protonix), 40 MG PO QAM Sertraline (Zoloft), 100 MG PO DAILY Scheduled PRN Ondansetron Hcl (Zofran), 8 MG PO PRN PRN for Nausea Oxycodone Ir (Roxicodone Ir), 10 MG PO Q6H PRN for Pain Tramadol (Ultram), 100 MG PO TID PRN for Pain Zolpidem Tartrate (Zolpidem Tartrate), 10 MG PO HS PRN for Sleep Current Inpatient Medications Current Inpatient Medications Medications (Trade) Dose Ordered Sig/Katherine Route Start Time Stop Time Status Last Admin Dose Admin Ioversol (Optiray 320) 100 ml UD PRN IV 04/14/18 14:00 04/18/18 13:59 Furosemide (Lasix Tab) 40 mg DAILY PO 04/15/18 08:00 05/15/18 08:59 04/15/18 08:48 40 MG Lorazepam (Ativan Tab) 1 mg TID PO 04/14/18 20:00 05/14/18 20:59 04/15/18 08:46 1 MG Methylphenidate HCl (Ritalin Tab) 5 mg DAILY PO 04/15/18 08:00 04/29/18 08:59 Oxycodone HCl (Roxicodone Immediate Rel Tab) 10 mg Q6H PRN PO 04/14/18 16:30 04/28/18 16:29 04/15/18 08:46 10 MG Pantoprazole Sodium (Protonix Tab) 40 mg QAM PO 04/15/18 08:00 05/15/18 08:59 04/15/18 08:47 40 MG Sertraline HCl (Zoloft Tab) 100 mg DAILY PO 04/15/18 08:00 05/15/18 08:59 04/15/18 08:47 100 MG Tramadol HCl (Ultram Tab) 100 mg TID PRN PO 04/14/18 16:30 05/14/18 16:29 04/15/18 06:14 100 MG Zolpidem Tartrate (Ambien Tab) 10 mg HS PRN PO 04/14/18 16:30 05/14/18 16:29 04/14/18 23:31 10 MG Miscellaneous Information (Order Awaiting Action) 1 ea QS N/A 04/14/18 20:00 05/14/18 19:59 Glycopyrrolate (Robinul Tab) 2 mg BID PO 04/14/18 20:00 05/14/18 20:59 04/15/18 08:49 2 MG Prednisone (PredniSONE TAB) 10 mg DAILY PO 04/15/18 08:00 05/15/18 08:59 04/15/18 08:47 10 MG Acetaminophen (Tylenol Tab) 650 mg Q4H PRN PO 04/14/18 16:45 05/14/18 16:44 Future Hold Al Hydrox/Mg Hydrox/Simethicone (Maalox Max Susp) 15 ml Q4H PRN PO 04/14/18 16:45 05/14/18 16:44 Magnesium Hydroxide (Milk Of Magnesia Susp) 30 ml Q6H PRN PO 04/14/18 16:45 05/14/18 16:44 Polyethylene (Miralax Powder Packet) 17 gm DAILY PRN PO 04/14/18 16:45 05/14/18 16:44 Ondansetron HCl (Zofran Inj) 4 mg Q6H PRN IV 04/14/18 16:45 05/14/18 16:44 04/15/18 08:35 4 MG Heparin Sodium (Porcine) (Heparin Sq 5000 Unit/0.5ml) 5,000 unit Q12H SQ 04/14/18 20:00 05/14/18 19:59 04/15/18 08:52 5,000 UNIT Miscellaneous (Iv Fluids Completed) 1 ea PRN PRN N/A 04/14/18 17:00 04/14/19 16:59 Heparin Sodium (Porcine) (Heparin 100 Unit/ml 5ml Flush) 5 ml PRN PRN IV 04/14/18 23:45 05/14/18 23:44 04/15/18 14:19 5 ML Hydromorphone HCl (Dilaudid Inj) 0.5 mg Q4 PRN IV 04/15/18 10:15 04/29/18 10:14 Hydromorphone HCl (Dilaudid Inj) 1 mg Q4 PRN IV 04/15/18 10:15 04/29/18 10:14 Heparin Sodium (Porcine) (Heparin 100 Unit/ml 5ml Flush) 5 ml PRN PRN IV 04/15/18 10:30 05/15/18 10:29 Gadobutrol (Gadavist) 7 mmol UD PRN IV 04/15/18 12:15 04/19/18 12:14 Acetaminophen (Tylenol Tab) 1,000 mg Q8 PO 04/15/18 14:00 05/15/18 13:59 04/15/18 14:19 1,000 MG Lorazepam (Ativan Inj) 1 mg Q4H PRN IV 04/15/18 12:30 05/15/18 12:29 04/15/18 13:02 1 MG Lorazepam (Ativan Inj) 0.5 mg Q4H PRN IV 04/15/18 12:30 05/15/18 12:29 Lorazepam 0.5 mg/ Syringe 1 ml @ 1 mls/min Q4H PRN IV 04/15/18 12:45 05/15/18 12:44 Lorazepam 1 mg/ Syringe 1 ml @ 1 mls/min Q4H PRN IV 04/15/18 12:45 05/15/18 12:44 Dexamethasone Sodium Phosphate 4 mg/Syringe 1 ml @ 1 mls/min Q6 IV 04/15/18 18:00 05/15/18 17:59 Review of Systems Constitutional: Negative for weight loss, night sweats, or fever Eyes: Negative for event change of vision ENT: Negative for epistaxis, nasal discharge, sore throat, or deafness Cardiovascular: Negative for chest pain, palpitations, dizziness, diaphoresis Respiratory: Negative for new shortness of breath,hemoptysis, or purulent cough Gastrointestinal: Negative for diarrhea, hematemesis, melena, nausea, vomiting , or dyspepsia Integumentary (skin): Negative for rash or jaundice discoloration Genitourinary: Negative for urinary frequency, hematuria, or dysuria Neurological: Negative for weakness, seizure activity, positive for headache and she states again that she tends to fall to the right. Lymphatic/Hematologic: Negative for petechiae, bleeding or new adenopathy Musculoskeletal: Negative for new joint or back pain Allergic/Immunologic: Negative for unusual rash or pruritis. Physical Exam Date Time Temp Pulse Resp B/P (MAP) Pulse Ox O2 Delivery O2 Flow Rate FiO2 04/15/18 14:57 36.5 66 18 121/72 (88) 96 Room Air 04/15/18 11:30 36.9 71 16 130/80 (97) 97 Room Air 04/15/18 08:15 Room Air 04/15/18 07:23 36.6 57 18 134/78 (96) 97 Room Air 04/15/18 04:00 36.4 55 16 132/86 (101) 100 Room Air 04/15/18 00:00 Room Air 04/14/18 23:34 36.5 57 16 130/84 (99) 94 Room Air 04/14/18 19:20 70 14 123/74 98 04/14/18 19:10 36.9 65 18 132/85 (101) 97 Room Air 04/14/18 16:50 54 14 115/74 Room Air 04/14/18 16:47 97 Room Air Constitutional: vitals are stable. Eyes: Eyes are BINU EOMI without conjuctival erythema or icterus. ENT: External examination was negative for masses. Neck: Negative for masses or palpable thyromegaly Respiratory: Lung sounds were generally clear bilaterally Cardiovascular: Heart was RRR without significant murmur, gallops aoe rubs Gastrointestinal: No palpable hepatic or splenomegaly. The abdomen was soft with normal bowel sounds. Lymphatic system: there was no palpable peripheral lymphadenopathy Musculoskeletal System: The musculoskeletal system seemed concordant with age. Skin: The skin was negative for jaundice. Neurologic exam: The exam was negative for any focal findings. Deep tendon reflexes were equal and symmetrical. Psychiatric exam: Was essentially negative with normal mood and effect. She is justifiably depressed. Breast exam: Not done Assessment & Plan Metastatic triple negative breast carcinoma. Her systemic disease is fairly well-controlled. Updated CT scans of the chest abdomen and pelvis that were just done yesterday showed the arthur metastatic disease and we have been watching to be the same size if not smaller than on previous exam. However the [employer] MRI does show changes consistent with leptomeningeal disease particularly involving the cerebellum. There is also a small workable defect but certainly not bulky disease. In that she does not really have a focal neurologic deficit in her performance status is graded at 1.0 and her systemic disease is fairly well-controlled I believe that we should pursue intrathecal therapy. A lumbar puncture and CSF analysis will need to be done of course first in an attempt to document metastatic disease. Systemic chemotherapy are placed on hold. This is all reviewed with the patient. Dr. Howell was also present for the conversation and is helped in her care immeasurably. Dr. Riggins was also consulted and has commented on her plan of care. As it evolves I believe that she be best served to have a neurosurgical evaluation with eventual Ommaya placement. This will most likely take place at [facility] with a possible hospital to hospital transfer this evening. 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 I had to have a nohemy conversation with Ms. Low about just how serious this problem is. She understands that survival is considerably and predictably short.
--- NOTE | 2018-04-15 17:32 | Discharge Summary ---
Discharge Summary Date of Service April 15, 2018. Discharge Summary Admission Date: April 14, 2018 at 16:45 Discharge Date: April 15, 2018 Discharge Disposition: Acute care facility Principal Diagnosis: leptominingeal carcinomatosis Problems/Secondary Diagnoses: (1) Port-a-cath in place Status: Chronic Immunizations: Have You Had Influenza Vaccine: No History of Tetanus Vaccine?: Yes History of Pneumococcal: No History of Hepatitis B Vaccine: Unknown Medication Reconciliation New Medications: Dexamethasone (Decadron) 4 Mg Tab 4 MG PO Q6H, #120 TAB Continued Medications: Balsalazide (Colazal) 750 Mg Cap 3000 MG PO BIDM, CAP Furosemide (Lasix) 40 Mg Tab 40 MG PO DAILY, TAB Glycopyrrolate (Glycopyrrolate) 2 Mg Tab 2 MG PO BID Lorazepam (Ativan) 1 Mg Tab 1 MG PO TID, TAB Multivit/Min/Iron/Fol Ac/Pren ( Vitamin) Tab 1 TAB PO DAILY, TAB Ondansetron Hcl (Zofran) 8 Mg Tab 8 MG PO PRN PRN for Nausea, TAB Oxycodone Ir (Roxicodone Ir) 5 Mg Tab 10 MG PO Q6H PRN for Pain, #20 TAB Pantoprazole (Protonix) 40 Mg Tab 40 MG PO QAM, #30 TAB Sertraline (Zoloft) 100 Mg Tab 100 MG PO DAILY, TAB Tramadol (Ultram) 50 Mg Tab 100 MG PO TID PRN for Pain, TAB Zolpidem Tartrate (Zolpidem Tartrate) 10 Mg Tab 10 MG PO HS PRN for Sleep, #20 TAB Discontinued Medications: Methylphenidate (Ritalin) 5 Mg Tab 5 MG PO DAILY, TAB Prednisone (Prednisone) 20 Mg Tab 20 MG PO, TAB pt takes in case of flare up Discharge Exam Review of Systems: Constitutional: No fever, No chills Cardiovascular: No chest pain, No orthopnea Abdomen: No pain, No nausea Genitourinary - Male: No hematuria, No dysuria Physical Exam: General Appearance: WD/WN, + mild distress Neck: supple, no JVD Respiratory/Chest: chest non-tender, lungs clear, normal breath sounds Cardiovascular: no edema, no murmur Hospital Course 43 y/o F presents with intractable headache with previous migraines, Hx met breast CA, Crohn's. The pt has chemotherapy on Fridays and generally develops a headache the next day as the steroids wear off. Intractable headache, MRI suggests leptomeningeal spread, discussion with Dr Hernandez today. we are attempting to coordinate referral for insertion of intra thecal reservoir to instill chemo as treatment, pt was accepted to [facility] to coordinate care we will continue to facilitate symptom management adding scheduled Decadron to scheduled Tylenol and opiates Crohn's - steroid taper cont Balsalazide Breast CA - at the request of her oncologist, she received a CT chest/abd/ pelvis which do not reveal any acute changes. She is prone to anasarca so that we will cont her daily Lasix. Full code - Heparin prophylaxis Total Time Spent: Greater than 30 minutes This includes examination of the patient, discharge planning, medication reconciliation, and communication with other providers. Discharge Instructions Please refer to the electronic Patient Visit Report (Discharge Instructions) for additional information.
[2018-04-15] MEDS: DEXAMETHASONE INJ 4 MG in SYRINGE 0 ML IV SCH ×2 (18:05→23:41)
[2018-04-15] MEDS: HYDROmorphone INJ 0.5 MG/0.5 ML SYR IV PRN ×2 (18:06→22:17)
[2018-04-15] MEDS: ALPRAZOLAM 0.5 MG TAB PO PRN (18:07)
[2018-04-16 00:01] VITALS: BP 159/88; PULSE 55; TEMP 36; O2SAT 96
[2018-04-16] MEDS: ALPRAZOLAM 0.5 MG TAB PO PRN (01:14)
[2018-04-16] MEDS: ZOLPIDEM TARTRATE 10 MG TAB PO PRN (01:14)
== END 2018-04-16 01:34 | disposition short-term general hospital (02) ==
LOC: C.EDB 12:31 → C.4E 16:45 → EDBEDREQ 16:50 → ENRESERV 17:11
PROVIDERS: ADMIT Internal Medicine; ATTEND Internal Medicine
DX: C80.0 Disseminated malignant neoplasm, unspecified (principal); R51 Headache; C50.919 Malignant neoplasm of unspecified site of unspecified female breast; K50.90 Crohn's disease, unspecified, without complications; Z87.891 Personal history of nicotine dependence; Z91.040 Latex allergy status; Z90.12 Acquired absence of left breast and nipple; Z88.8 Allergy status to other drugs, medicaments and biological substances; Z88.1 Allergy status to other antibiotic agents; Z88.2 Allergy status to sulfonamides; Z79.52 Long term (current) use of systemic steroids